=== PATIENT | female | born 1990 | race Caucasian/White ===

== ENCOUNTER 2024-12-11 08:55 | Outpatient (POV) | payer OTHER, SELFPAY ==
--- OUTSIDE RECORDS SUMMARY | 2024-12-11 09:02 | XMS_ITS | Data Portability ---
Author Organization [facility] [employer] [employer] ADMIN Address [address] [place] [address] Assessment Encounter Date Assessment Date Assessment LastModified by Organization Details LastModified Time 07/27/2023 07/27/2023 Diagnosis acute bacterial sinusitis. Will treat as below. No signs of preseptal or orbital cellulitis, meningismus, or neurologic changes concerning for intracranial process. Instructed family to monitor patient closely and call office for any of these symptoms. Supportive care reviewed: raising HOB, humidifier use, saline nasal spray, rest, encourage PO fluids and monitor hydration status, infection control measures. Recommended acetaminophen/i buprofen PRN pain, fever; reviewed appropriate doses. Follow-up with worsening symptoms or concerns [email or web address] Not available 07/27/2023 16:22:21 06/12/2024 06/12/2024 In summary this is a 34-year-old female who presented to the clinic complaining of sore throat that began last night and has worsened. Please see HPI for further details. Rapid strep performed and was positive. Results discussed with the patient. Prescription for azithromycin sent to local pharmacy. Patient advised to increase fluid intake, take all antibiotics and complete prescription as prescribed, take Tylenol/ibuprof en as needed, discard toothbrush in 48 hours, and follow up with their primary care provider if symptoms persist or worsen. [email or web address] Not available 06/12/2024 13:10:57 Plan of Treatment Reminders Order Date Submit Date Provider Last Modified By Organization Details Last Modified Time Details Appointments None record ed. Lab rapid strep group A, throat 2023 024 guillermo garcia [facility], [address], [place], [address], Ph [phone] 4 13:09:24 urinal ysis, dipsti ck 2023 024 [email or web address] [facility], [address], [address], [place], [address], 4 10:13:06 cultur e, urine 2023 024 [facility], [address], [facility] [[email or web address] [address], [place], [address], 4 06:20:13 influe nza virus A + B + SARS-C oV-2 (COVID 19) Ag panel, rapid IA, upper respir atory specim en 2022 023 [place] [facility], [address], [address], [place], [address], 3 16:13:38 rapid strep group A, throat 2022 023 [facility], [address], [address], [place], [address], 3 10:21:21 influe nza virus A + B + SARS-C oV-2 (COVID 19) Ag panel, rapid IA, upper respir atory specim en 2022 023 [email or web address] [facility], [address], [address], [place], [address], 3 10:28:56 Referral None record ed. Procedures None record ed. Surgeries None record ed. Imaging None record ed. Medication Orders azithr omycin 500 mg tablet 2023 024 [facility], [address] [facility], [place], [address], 4 13:09:30 Macrob id 100 mg capsul e 2023 024 [facility], [address] [place], [address], 4 10:13:33 amoxic illin 875 mg-pot assium clavul anate 125 mg tablet 2022 023 [facility], [address] [place], [address], 3 16:21:39 benzon atate 200 mg capsul e 2022 023 [facility], [address] [place], [address], 3 16:22:20 Tamifl u 75 mg capsul e 2022 023 [facility], [address] [place], [address], 3 10:36:42 ondans etron 4 mg disint egrati ng tablet 2022 023 [facility], [address] [place], [address], 3 10:30:50 predni sone 10 mg tablet s in a dose pack 2022 023 [facility], [address] [place], [address], 3 10:30:48 Patient TargetsNo targets recorded. Patient InstructionsNo instructions recorded. Reason for Referral None Reported. Results Created Date Observation Date Name Description Value Unit Range Abnormal Flag Note LastModifiedBy Organization Detail LastModifiedTime 07/03/20 23 07/03/2023 influ aysha virus A + B + SARS- CoV-2 (COVI D19) Ag panel , rapid IA, upper respi rator y speci men FLU A negati ve Not Available [facility] [place] [address] [address], [place], [address], 07/03/2023 10:19:00 07/03/20 23 07/03/2023 influ aysha virus A + B + SARS- CoV-2 (COVI D19) Ag panel , rapid IA, upper respi rator y speci men FLU B positi ve Not Available [facility] [address], [place], [address], 07/03/2023 10:19:00 07/03/20 23 07/03/2023 influ aysha virus A + B + SARS- CoV-2 (COVI D19) Ag panel , rapid IA, upper respi rator y speci men SARS COV + SARS OV 2 negati ve Not Available [facility] [address], [place], [address], 07/03/2023 10:19:00 07/03/20 23 07/03/2023 rapid strep group A, throa t Strep negati ve Not Available [facility] [address], [place], [address], 07/03/2023 10:03:40 07/27/20 23 07/27/2023 influ aysha virus A + B + SARS- CoV-2 (COVI D19) Ag panel , rapid IA, upper respi rator y speci men FLU A negati ve Not Available [facility] [address], [place], [address], 07/27/2023 15:59:10 07/27/20 23 07/27/2023 influ aysha virus A + B + SARS- CoV-2 (COVI D19) Ag panel , rapid IA, upper respi rator y speci men FLU B negati ve Not Available [facility] [address], [place], [address], 07/27/2023 15:59:10 07/27/20 23 07/27/2023 influ aysha virus A + B + SARS- CoV-2 (COVI D19) Ag panel , rapid IA, upper respi rator y speci men SARS COV + SARS OV 2 negati ve Not Available [facility] [address] [facility] [address], [place], [address], 07/27/2023 15:59:10 11/21/19 24 11/23/2023 URINE CULTU RE, ROUTI NE urine culture, routine FINAL REPORT Not Available [facility] ([facility]) [address], [place], [address], 11/23/2023 06:20:13 11/21/19 24 11/23/2023 URINE CULTU RE, ROUTI NE result 1 COMMEN T Mixed uroge nital alberto 10,00 0-25, 000 colon y formi ng units per mL Not Available [facility] ([facility]) [address], [place], [address], 11/23/2023 06:20:13 11/21/19 24 11/21/2023 urina lysis , dipst ick Leukocytes (reference range) negati ve Not Available [facility] [address] [address], [place], [address], 11/21/2023 09:58:40 11/21/19 24 11/21/2023 urina lysis , dipst ick Nitrite (reference range:) negati ve Not Available [facility] [address] [address], [place], [address], 11/21/2023 09:58:40 11/21/19 24 11/21/2023 urina lysis , dipst ick Urobilinogen (reference range) 4 Not Available [facility] [address] [address], [place], [address], 11/21/2023 09:58:40 11/21/19 24 11/21/2023 urina lysis , dipst ick Protein (reference range) negati ve Not Available [facility] [address] [address], [place], [address], 11/21/2023 09:58:40 11/21/19 24 11/21/2023 urina lysis , dipst ick pH (reference range 5-8.5) 6.0 Not Available [facility] [address], [place], [address], 11/21/2023 09:58:40 11/21/19 24 11/21/2023 urina lysis , dipst ick Blood (reference range:) negati ve Not Available [facility] [address] [facility] [address] [facility], [place], [address], 11/21/2023 09:58:40 11/21/19 24 11/21/2023 urina lysis , dipst ick Specific [place] (reference range) 1.025 Not Available [facility] [address] [address], [place], [address], 11/21/2023 09:58:40 11/21/19 24 11/21/2023 urina lysis , dipst ick Ketone (reference range) negati ve Not Available [facility] [address] [facility] [address], [place], [address], 11/21/2023 09:58:40 11/21/19 24 11/21/2023 urina lysis , dipst ick Bilirubin (reference range) negati ve Not Available [facility] [address] [address], [place], [address], 11/21/2023 09:58:40 11/21/19 24 11/21/2023 urina lysis , dipst ick Glucose (reference range) negati ve Not Available [facility] [address] [facility] [address], [place], [address], 11/21/2023 09:58:40 11/21/19 24 11/21/2023 urina lysis , dipst ick Color (reference range: yellow-brown ) Pale Yellow Not Available [facility] [address], [place], [address], 11/21/2023 09:58:40 06/12/20 24 06/12/2024 rapid strep group A, throa t Strep positi ve Not Available [facility] [address], [place], [address], Ph [phone] 06/12/2024 12:51:24 Result Notes None recorded. Problems Name Problem SNOMED Code Status Onset Date Resolution Date Notes Provider Name and Address Organization Details Recorded Time Fever 246829263 Active 2022 NORBERTOKRISTIN ROGERSSMAN null, [place] - [facility] - [place] & [place] 3 10:03:20 Generalized aches and pains 80344675 Active 2022 MAVERICK MURRAYS null, [place] - [facility] [place] & [place] 3 15:59:07 Problem Notes None recorded. Procedures Surgical History Date Name Laterality Status Provider Name and Address Organization Details Recorded Time Caesarean Section completed NORBERTOKRISTIN ROGERSSMAN [place] - [facility] [place] & [place] 07/03/2023 09:56:06 cholecystectomy completed NORBERTO SALSMAN [place] - [facility] [place] & [place] 07/03/2023 09:56:13 sinusotomy, multiple completed NORBERTOKRISTIN ROGERSSMAN [place] [facility] [place] & [place] 07/03/2023 09:56:22 tonsilectomy/adenoi ds completed NORBERTO SALSMAN [place] - [facility] [place] & [place] 07/03/2023 09:56:58 Imaging Results None recorded. Procedure Notes None recorded. Medical Equipment None Reported. Allergies Allergen ID Allergen Name Allergen Category Reaction Reaction Severity Criticality Documentation Date Start Date Code Code System Note Provider Name and Address Organization Details Recorded Time 442268 Keflex medicatio n ringing in ears mild low 07/03/2023 7 RxNorm NORBERTO SUESMAN null, [place] - [facility] - [place] & [place] 3 09:54:34 365622 Substance with sulfonami de structure and antibacte rial mechanism of action (substanc e) medicatio n other mild low 07/03/2023 72835 8003 SNOMED NORBERTO ALCOCER [facility], [place] - [facility] - [place] & [place] 3 09:54:48 Medications Name Sig Start Date Stop Date Status Note LastModified by Organization Details LastModified Time cyclobenzap rine 10 mg tablet TAKE 1 TABLET BY MOUTH EVERY DAY AT BEDTIME active Not Available Not Available No t Available prednisone 10 mg tablet PLEASE SEE ATTACHED FOR DETAILED DIRECTION S active Not Available Not Available No t Available azithromyci n 250 mg tablet TAKE 2 TABLETS BY MOUTH TODAY, THEN TAKE 1 TABLET DAILY FOR 4 DAYS active Not Available Not Available No t Available ibuprofen 800 mg tablet TAKE 1 TABLET BY MOUTH THREE TIMES DAILY NEEDED WITH FOOD OR MILK active Not Available Not Available No t Available benzonatate 200 mg capsule Take 1 capsule 3 times a day by oral route as needed for 7 days. active Not Available Not Available No t Available sumatriptan 100 mg tablet TAKE 1 TABLET AT THE ONSET OF A MIGRAINE, MAY REPEAT EVERY 2 HOURS NEEDED MAX 2 PER DAY active Not Available Not Available No t Available hydrocodone 5 mg-acetamin ophen 325 mg tablet TAKE 1 TABLET BY MOUTH EVERY 8 HOURS NEEDED FOR SEVERE PAIN active Not Available Not Available No t Available tretinoin 0.025 % topical cream active Not Available Not Available Not Available rizatriptan 10 mg tablet TAKE 1 TABLET BY MOUTH 1 (ONE) TIME NEEDED FOR MIGRAINE. MAY REPEAT IN 2 HOURS IF NEEDED active Not Available Not Available No t Available metronidazo le 500 mg tablet TAKE 1 TABLET BY MOUTH THREE TIMES A DAY FOR 10 DAYS active Not Available Not Available No t Available doxycycline monohydrate 100 mg tablet TAKE 1 TABLET BY MOUTH TWICE DAILY FOR 5 DAYS active Not Available Not Available No t Available vancomycin 125 mg capsule TAKE 1 CAPSULE BY MOUTH 4 TIMES DAILY FOR 14 DAYS active Not Available Not Available No t Available prednisone 10 mg tablets in a dose pack TAKE BY MOUTH DIRECTED ON INSIDE OF PACKAGE active Not Available Not Available No t Available methotrexat e sodium 2.5 mg tablet TAKE 6 TABLETS BY MOUTH EVERY WEEK active Not Available Not Available No t Available tamsulosin 0.4 mg capsule TAKE 1 CAPSULE BY MOUTH EVERY DAY 07/03 completed Not Available Not Available Not Available trazodone 100 mg tablet TAKE 1 TABLET BY MOUTH EVERY DAY AT NIGHT active Not Available Not Available No t Available dicyclomine 20 mg tablet active Not Available Not Available Not Available dexamethaso ne 1 mg tablet TAKE 1 TABLET BY MOUTH 1 TIME FOR 1 DOSE.TAKE AT 11 PM NIGHT BEFORE LAB DRAW AT 8 AM. active Not Available Not Available No t Available levothyroxi ne 50 mcg tablet TAKE 1 TABLET BY MOUTH DAILY. PATIENT HAS LABS TO COMPLETE BEFORE ANY FURTHER REFILLS active Not Available Not Available No t Available hydrocodone 7.5 mg-acetamin ophen 325 mg tablet TAKE 1 TABLET BY MOUTH EVERY 6 HOURS NEEDED active Not Available Not Available No t Available oseltamivir 75 mg capsule TAKE 1 CAPSULE BY MOUTH TWICE DAILY FOR 5 DAYS active Not Available Not Available No t Available promethazin e 25 mg tablet active Not Available Not Available Not Available folic acid 1 mg tablet TAKE 1 TABLET BY MOUTH EVERY DAY active Not Available Not Available No t Available mupirocin 2 % topical ointment APPLY SPARINGLY TO BOIL AREAS THREE TIMES DAILY FOR 5 DAYS active Not Available Not Available No t Available ergocalcife rol (vitamin D2) 1,250 mcg (50,000 unit) capsule active Not Available Not Available Not Available methylpredn isolone 4 mg tablets in a dose pack TAKE 6 TABLETS ON DAY 1 DIRECTED ON PACKAGE AND DECREASE BY 1 TAB EACH DAY FOR A TOTAL OF 6 DAYS active Not Available Not Available No t Available ondansetron 4 mg disintegrat ing tablet Place 1 tablet every 4-6 hours by transling ual route as needed. active Not Available Not Available No t Available colestipol 1 gram tablet TAKE 1 TABLET BY MOUTH TWICE DAILY AFTER A MEAL TAKE AT LEAST 1 HOUR AFTER OR 4 HOURS BEFORE OTHER MEDICATIO NS active Not Available Not Available No t Available naproxen 500 mg tablet TAKE 1 TABLET BY MOUTH TWICE DAILY WITH MEALS active Not Available Not Available No t Available amoxicillin 875 mg-potassiu m clavulanate 125 mg tablet Take 1 tablet every 12 hours by oral route for 10 days. active Not Available Not Available No t Available etonogestre l 0.12 mg-ethinyl estradiol 0.015 mg/24 hr vaginal ring PLEASE SEE ATTACHED FOR DETAILED DIRECTION S 07/03 completed Not Available Not Available Not Available azithromyci n 500 mg tablet TAKE 1 TABLET BY MOUTH ONCE DAILY FOR 5 DAYS active Not Available Not Available No t Available escitalopra m 20 mg tablet TAKE 1 TABLET BY MOUTH EVERY DAY active Not Available Not Available No t Available metaxalone 800 mg tablet active Not Available Not Available Not Available nitrofurant oin monohydrate /macrocryst als 100 mg capsule TAKE 1 CAPSULE BY MOUTH EVERY 12 HOURS FOR 10 DAYS active Not Available Not Available No t Available clobetasol 0.05 % topical spray active Not Available Not Available Not Available cholecalcif renee (vitamin D3) 1,250 mcg (50,000 unit) capsule TAKE 1 CAPSULE BY MOUTH ONCE A WEEK active Not Available Not Available No t Available sodium,pota ssium,mag sulfates 17.5 gram-3.13 gram-1.6 gram oral soln AT 5 PM ON THE DAY BEFORE COLONOSCO PY MIX AND DRINK THE FIRST DOSE. MIX AND DRINK THE SECOND DOSE 6 HOURS BEFORE YOU LEAVE HOME ON THE DAY OF COLONOSOC PY active Not Available Not Available No t Available Humira(CF) Pen 40 mg/0.4 mL subcutaneou s kit active Not Available Not Available Not Available Ajovy 225 mg/1.5 mL subcutaneou s auto-inject or INJECT 1.5 ML EVERY MONTH BY SUBCUTANE OUS ROUTE FOR 30 DAYS. active Not Available Not Available No t Available Qulipta 60 mg tablet TAKE 1 TABLET BY MOUTH EVERY DAY active Not Available Not Available No t Available Rinvoq 45 mg tablet,exte nded release active Not Available Not Available Not Available Vitals Date Recorded Body weight Body temperature Oxygen saturation Oxygen saturation in Arterial blood by Pulse oximetry Heart rate Systolic blood pressure Diastolic blood pressure Provider Name and Address Organization Details Last Updated DateTime 3 75130.2 9 g 97.7 [degF] 99 % 99 % 113 /min 132 mm[Hg] 71 mm[Hg] NORBERTO ROGERSCORRIE [facility] & [place] 3 09:59:01 Date Recorded Body weight Body temperature Heart rate Systolic blood pressure Diastolic blood pressure Provider Name and Address Organization Details Last Updated DateTime 07/27/2023 76558.4 g 98.1 [degF] 144 /min 129 mm[Hg] 82 mm[Hg] MAVERICK RODRIGUEZMONS [facility] & [place] 3 15:58:31 Date Recorded Body weight Body mass index (BMI) Body height Body temperature Oxygen saturation Oxygen saturation in Arterial blood by Pulse oximetry Systolic blood pressure Diastolic blood pressure Provider Name and Address Organization Details Last Updated DateTime 4 71305.1 5 g 31.5 kg/m2 162.56 cm 97.9 [degF] 98 % 98 % 116 mm[Hg] 75 mm[Hg] Chanel Bush [facility] & [place] 4 09:58:29 Date Recorded Body height Body mass index (BMI) Body weight Body temperature Oxygen saturation Oxygen saturation in Arterial blood by Pulse oximetry Heart rate Systolic blood pressure Diastolic blood pressure Provider Name and Address Organization Details Last Updated DateTime 4 162.56 cm 31.4 kg/m2 81055.4 g 98.1 [degF] 99 % 99 % 112 /min 103 mm[Hg] 66 mm[Hg] Bry Stanton [facility] & [place] 4 12:51:17 Social History None recorded. Functional Status None recorded. Mental Status None recorded. Family History Relationship Description Onset Age of this Age Resolved Age Notes LastModified by Organization Details LastModified Time Father No current problems or disability [email or web address] Not available 07/03 09:55:46 Mother No current problems or disability asalsman Not available 07/03 09:55:46 Medical History No medical history recorded. Gynecological History Statement/Question Response Current Control Method BCPs LMP Approximate Obstetrics History GPAL:G 0 P 0 0 0 0 Immunizations Vaccine Type Date Status Note Provider Nam e and Address Organization Details Recorded Time Influenza, MDCK, quadrivalent, PF 06/13/2019 completed NORBERTO madison [facility] & [place] 07/03/2023 09:54:17 COVID-19, mRNA, LNP-S, PF, 100 mcg/0.5mL dose or 50 mcg/0.25mL dose 09/04/2020 completed NORBERTO madison [facility] & [place] 07/03/2023 09:54:17 COVID-19, mRNA, LNP-S, PF, 100 mcg/0.5mL dose or 50 mcg/0.25mL dose 10/02/2020 completed NORBERTO madison [facility] & [place] 07/03/2023 09:54:18 COVID-19, mRNA, LNP-S, PF, 100 mcg/0.5mL dose or 50 mcg/0.25mL dose 04/22/2021 completed NORBERTOKRISTIN ROGERSSMAN null, [place] - [facility] [place] & [place] 07/03/2023 09:54:18 TST-PPD intradermal 11/26/2014 completed NORBERTO SALSMAN [place], [place] [facility] [place] 07/03/2023 09:54:18 Influenza, split virus, quadrivalent, PF 04/22/2021 completed NORBERTO SALSMAN [place], [place] [facility] [place] [facility] [place] 07/03/2023 09:54:18 Past Encounters Encounter ID Performer Location Encounter Start Date Encounter Closed Date Diagnosis/Indication Diagnosis SNOMED-CT Code Diagnosis ICD10 Code Diagnosis Note [id number] Shay Albrecht MD [facility] [address] [facility] [place] [address] 07/03/2023 09:41:50 07/03/2023 10:26:14 Fever 340866085 R50.9 Influenza caused by Influenza B virus 02985950 J10.1 Rest, plenty of fluids, OTC symptomati c treatment. Return for failure several days or sooner if worsening. Outside window of ideal timing for Tamiflu but will give trial. Zofran for nausea. Will also add steroids [id number] Cassandra Albrecht APRN [facility] [address] [facility] [place] [address] 07/27/2023 15:44:35 07/27/2023 16:16:02 Generalized aches and pains 31983025 R52 Acute bact erial sinusitis 22957181 J01.90 patient states that she can take augmentin with no side effects Cough 21955495 R05.9 [id number] Shay Albrecht MD [facility] [address] [facility] [place] [address] 11/21/2023 09:48:31 11/21/2023 10:08:42 Acute urinary tract infection 955642824 N39.0 Will treat based on symptoms. Culture. Return for failure to improve over next several days, sooner if worsening. [id number] Cameron Uribe PA-C [place] [facility] [address] [place] [address] 06/12/2024 12:43:36 06/12/2024 13:12:36 Acute streptococcal pharyngitis 2519561795 J02.0 Health Concerns Section Related Observation LastModified by Organization Detai ls LastModified Time None Recorded Concern Status LastModified by Organization Details LastModified Time None Recorded Advance Directives Directive None Recorded Payers Encounter Date Sequence Insurance Name Policy Number Policy Gregg Covered Member ID Gregg Member ID Guarantor Name 07/03/2023 1 [place] [employer] [id number] Blanca Colindres [id number] 241 Blanca Coilndres 07/27/2023 1 [place] [id number] Blanca Colindres [id number] Blanca Colindres 11/21/2023 1 [place] [id number] Blanca Colindres [id number] 241 Blanca Colindres 06/12/2024 1 [place] [id number] Blnaca Colindres [id number] 241 Blanca Colindres Notes Date Note Type Note Provider Name and Address Organization Details Recorded Time 07/03/2023 text/html CoughReported bypatient.Quality:pro ductive Severity:moderate Duration:constant Onset/Timing:gradual Associated Symptoms:no vomiting;fever;chills ;nausea;nasal discharge;muscle pain;tiredness Shay Albrecht MD [address] , [place], [address], [facility] & [place] 07/03/2023 10:36:44 07/27/2023 text/html Upper Respirator y SymptomsReported bypatient.Location:he ad; chest; nasal; face Quality:congested;dry cough;nasal discharge Severity:no pain Duration:symptoms began over 1 week ago Onset/Timing:sudden Context:no sick contacts; no foreign travel; non-smoker Alleviating Factors:decongestant; with no relief Associated Symptoms:no chest pain; no sputum production; no shortness of breath; no wheezing; no cyanosis; no change in number of pillows needed to sleep at night; no sweats; no fever; no morning cough; no vomiting; no rash; no nausea; no chills; no conjunctivitis;fatigu e;sore throat;diarrhea;heada omar; sinus pressure and pain Cassandra Albrecht APRN [address] , [place], [address], [facility] & [place] 07/27/2023 16:22:50 11/21/2023 text/html Dysuria, urinary frequency this morning. Feels like prior UTI's but has not had one in years. Has had some left sided/flank pain for about a week and a half. Unsure if related or if may be more an issue with her Crohn's disease. Shay Albrecht MD [address], [place], [address] & [place] 11/21/2023 10:14:45 06/12/2024 text/html 34-year-old dionne evangelista presents to the clinic complaining of sore throat that began last night and has worsened. She reports that her child was diagnosed with strep pharyngitis by their concrete floater this morning. Patient denies fever, chills, headache, body aches, cough, congestion, or any other symptoms. Cameron Uribe PA-C [address], [place], [address], [facility] & [place] 06/12/2024 13:11:26 OBGyn Episode No OBEpisode recorded.
--- NOTE | 2024-12-11 09:40 | EXP.PAIN.OV ---
HPI Data of Consult Patient: new to practice Consult date: 12/11/24 Requesting Physician: Sara Aguilar APRN Primary Care Provider: Teodoro Huynh Consult Narrative Reason for consult: Neck pain, left arm numbness tingling History of present illness: Ms. Colindres is a 34 year old female who presents today as a new patient. She is a referral from [facility] out of [place] by Dr. Huynh. Today she rates her pain a 5 out of 10. She states that she has been having neck pain that is a sharp sensation that does radiate down primarily into her left shoulder and into her hand with numbness and tingling. Patient does state that she did not have any initial injury or trauma that really started this. She states that she did have an episode where she was sliding down a slide with her child and felt like she could have pulled something and also states that in July she did have a fall that may have aggravated the symptoms. Patient does state that the pain is fairly constant and it is interfering with her ability to perform activities of daily living such as cooking and cleaning. Patient states she even has difficulty picking up her child due to the pain. She denies any prior injections or surgery history. Patient has tried Tylenol, Advil along with being prescribed Skelaxin tramadol and Flexeril. Patient states the Flexeril does seem to help a little. She has also tried heat and ice and topicals with minimal improvement. She states that she did do x-ray imaging however when her doctor did trying to get the advanced imaging ordered it was denied by insurance for lack of physical therapy. Patient does have a history of RA and has been on methotrexate in the past and is currently on Skyrizi. Her Isaiah has been reviewed and is appropriate. CC: Sara Aguilar APRN [facility] Disclaimer: The information contained in this section may have been updated after the patient was seen, as this information can be updated by other users. Medical History (Updated 12/11/24 @ 10:07 by Sara Aguilar APRN) Tristan's disease Hypothyroidism PCOS (polycystic ovarian syndrome) Psoriatic arthritis Crohn disease Family History (Updated 12/11/24 @ 09:45 by Luz Marina Peter RN) Other Unknown family medical history Social History Smoking Status: Unknown if ever smoked alcohol intake: never current occupational status: other Travel in the last 8 weeks?: None Review of Systems Review of Systems Review of systems:: pertinent systems reviewed and negative unless documented below Review of systems (narrative): Review of Systems: General: No recent weight changes, no fever, no sleep disturbances Respiratory: No cough, no shortness of air, no recurring pulmonary infections Cardiovascular/peripheral vascular: No chest pain, no palpitations, no edema, no shortness of breath Gastrointestinal: No new onset incontinence, normal bowel movements reported Genitourinary: No new onset incontinence Musculoskeletal: Neck pain, left shoulder/arm/hand numbness tingling Psychiatric: [Normal mood/affect] Neurological: [Denies weakness in extremities], [denies balance issues] Meds Home Medications and Allergies Home Medications ?Medication ?Instructions ?Recorded ?Confirmed ?Type atogepant 60 mg tablet (Qulipta) 60 mg PO DIRECTED MIGRAINES 12/11/24 12/11/24 History cyanocobalamin (vitamin B-12) 1,000 mcg IM MONTHLY SUPPLIMENT 12/11/24 12/11/24 History 1,000 mcg/mL injection solution cyclobenzaprine 10 mg tablet 10 mg PO HS 12/11/24 12/11/24 History New Prescriptions to Start Prescriptions: Allergies Allergy/AdvReac Type Severity Reaction Status Date / Time Sulfa (Sulfonamide Allergy Difficulty Verified 12/11/24 09:56 Antibiotics) Breathing Objective Narrative: Physical Exam: General: Alert and oriented x3, no acute distress, pleasant and cooperative Lungs: Respirations even and unlabored, symmetrical chest expansion Eyes: PERRL Musculoskeletal: Flexion and extension of cervical [spine] somewhat guarded secondary to pain, positive Spurling's test, point tenderness along bilateral rhomboid and trapezius muscles Neurological: Speech clear, no gross sensory deficit Assessment and Plan *Assessment and plan (1) Neck pain: Status: Acute Category: Medical Code(s): M54.2 - Cervicalgia (2) Cervical radiculopathy: Status: Acute Category: Medical Code(s): M54.12 - Radiculopathy, cervical region (3) Myofascial pain: Status: Acute Category: Medical Code(s): M79.18 - Myalgia, other site Plan Patient is experiencing worsening pain in their neck with radiating tingling and burning sensations into her left upper extremity. Patient does state that she has numbness and tingling into her index finger and the middle finger. Patient did have limited range of motion of her cervical spine with a positive Spurling's test. She did also have point tenderness along her bilateral trapezius and rhomboid muscles. I did discuss with the patient that I do believe they would benefit from a cervical epidural steroid injection. Risk and benefits were discussed with patient and they would like to proceed forward with this plan of care. Patient has tried and failed conservative therapy including oral medications, heat and ice, topicals, at home stretching exercise for longer than 12 weeks that was physician guided. Patient was sent to physical therapy and went for 3 different visits however she could not tolerate the continued PT and that she was actually released from physical therapy due to their concern but they did not want to make anything worse with no advanced imaging. I will proceed forward with ordering a MRI without contrast of her cervical spine. I will also order the patient a compounded cream. Patient will be scheduled for a GRICELDA C6-C7 under fluoroscopy. Patient denies any blood thinners. Patient has been instructed to contact the clinic with any concerns before the next appointment. Dr. Muñoz has reviewed this note and agrees with this plan of care. This note was dictated using voice recognition software and make contain errors or omissions. All injections are used with Lidocaine, Bupivacaine and dexamethasone. Occasionally urine drug screen is needed to verify patient's compliance with our office pain contract. This is ordered based off specific treatments related to chronic pain with the potential to abuse certain medications.
[2024-12-11 09:43] VITALS: BP 121/82; PULSE 130; RESP 18; O2SAT 100; BMI 26.6
== END 2024-12-11 23:59 | disposition home or self-care (01) ==
LOC: SC.PAIN 09:01
PROVIDERS: PCP Family Medicine; Visit Provider Nurse Practitioner Family
DX: M54.2 Cervicalgia (principal); M54.12 Radiculopathy, cervical region; M79.18 Myalgia, other site; Z73.89 Other problems related to life management difficulty
CPT/HCPCS: 99202; G0463

== ENCOUNTER 2025-01-27 13:51 | Day surgery (SDC) | payer OTHER, SELFPAY ==
[2025-01-27 14:01] VITALS: BP 123/79; PULSE 117; RESP 18; TEMP 37.1; O2SAT 98; BMI 26.6
[2025-01-27] MEDS: IOPAMIDOL-200 (41%);10ML VIAL 10 ML IV (14:18)
[2025-01-27 14:24] VITALS: BP 114/75; PULSE 98; RESP 18; O2SAT 98
[2025-01-27] MEDS: DEXAMETHASONE 10MG/ML 1ML VIAL 10 MG (14:24)
[2025-01-27 14:25] VITALS: BP 114/75; PULSE 98; RESP 18; O2SAT 98
--- NOTE | 2025-01-27 14:41 | P.PCN_ITS ---
Procedure Date: 01/27/25 Time: 14:00 Anesthesiologist:: Octavio Kapadia CRNA Complications:: None Pre-procedure Diagnosis:: Degenerative disc cervical spine multilevels. Cervical radiculopathy. Cervical disc bulge C5-6, C6-7 Post-procedure Diagnosis:: Same Indications for Procedure:: Patient is a very pleasant 34-year-old female who comes our clinic today for cervical epidural steroid injection. Patient describes posterior cervical neck pain as well as left shoulder and arm radicular symptoms to the hand. She rates her pain 6/10. Procedure Details:: Procedure:Cervical epidural steroid injection Informed consent was obtained and the risks and benefits of the procedure were explained to the patient. The patient was taken to the procedure room and noninvasive monitors placed, including noninvasive blood pressure cuff and pulse oximeter. The neck was prepped using Chloraprep as a cleansing solution. The C6- C7 interspace was viewed using fluroscopy. The skin and subcutaneous tissues were anesthetized using lidocaine 1.5% and a 25-gauge needle. After this an 18- gauge Touhy epidural needle was placed into the C6-C7 interspace under fluroscopy guidance and advanced using loss of resistance to air until the epidural space was encountered. After confirmation of needle placement in the epidural space using contrast dye, a solution containing normal saline, 2 mL and Depo-Medrol 80 mg was incrementally injected into the cervical epidural space.~ The patient tolerated the procedure well with no complications. The patient was observed in the Pain Clinic and then discharged home neurologically intact. Plan and Disposition:: Patient was discharged without incident.
[2025-01-27 14:42] VITALS: BP 111/72; PULSE 89; RESP 18; O2SAT 100
--- NOTE | 2025-01-27 14:47 | PC.NURSE ---
1430: PT COMPLAINS OF NAUSEA. APPEARS PALE. BP = 77/45, HR = 100, RR = 16, O2 SAT 100%, PT PLACED IN [place] POSITION ON TABLE. PDUFF PRESENT. 1431: BP = 85/53, HR = 106, RR = 16, O2 SAT = 99% 1433: BP = 90/58, HR = 99, RR = 16, O2 SAT = 99% 1436: BP = 111/69, HR = 100, RR = 16, O2 SAT = 100%. PT'S NAUSEA AND COLOR HAVE IMPROVED. PT ASSISTED INTO WHEELCHAIR AND IS STABLE TO PROCEED TOWARD HER ROOM W/ NURSING STAFF VIA WHEELCHAIR.
== END 2025-01-27 14:42 | disposition home or self-care (01) ==
PROVIDERS: PCP Family Medicine; Visit Provider Nurse Anesthetist, Certified Registered
DX: M50.122 Cervical disc disorder at C5-C6 level with radiculopathy (principal); E28.2 Polycystic ovarian syndrome; Z88.2 Allergy status to sulfonamides
CPT/HCPCS: 62321; J1100; Q9966

== ENCOUNTER 2025-02-25 14:10 | Outpatient (POV) | payer OTHER, SELFPAY ==
--- OUTSIDE RECORDS SUMMARY | 2025-02-25 14:13 | XMS_ITS | Continuity of Care Document ---
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 I personally reviewed the images with Dr. Vazquez and read the radiologist's report. 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 ASSESSMENT: Blanca Munoz is a 34-year-old who presents to the clinic to discuss cervical pain is been present since October 2024. Dr. Vazquez discusses imaging findings with patient with the use of a spinal model. She does have perineural cyst at C5-6 and C6-7 but this does not clearly explain her current symptoms. Patient to have a positive Tinel's at her left wrist. We will have patient complete a bilateral upper extremity EMG for further assessment. We will also have her obtain flexion-extensi on cervical x-rays to assess for spinal instability. Patient may call for results. Patient is to call the office once her lumbar MRI is completed through [facility] and we will review. If all of the above is negative, we may provide a referral to neurology for further workup. In the meantime, patient was offered 300mg gabapentin 3 times daily. Patient was advised to take this medication at nighttime and titrate up to 3 times a day as tolerated. Patient ultimately decided to hold off on this medication for now but will call the office if she changes her mind. PLAN: Bilateral upper extremity EMG AP lateral flexion-extensi on cervical x-rays, patient to call for results Gabapentin 300 mg 3 times daily [email or web address] Not available 02/24/2025 09:17:54 Plan of Treatment Reminders Order Date Submit Date Provider Last Modified By Organization Details Last Modified Time Details Appointments RHEUM RECHECK 2024 03:15P M BAMBI HINSON MD Not available Not available Not available DR ALBRECHT EMG 2024 01:15P M Neuro_Tec h_2 Not available Not available Not available NEUROLOGY RECHECK 2024 03:30P M DEIRDRE ALBRECHT DO Not available Not available Not available RECHECK 2024 01:10P M NEPTALI ABBOTT MD Not available Not available Not available FOLLOW UP DAK 2024 11:20A M JEREMY SHER PA-C Not available Not available Not available Lab None recorded. Referral None recorded. Procedures None recorded. Surgeries None recorded. Imaging None recorded. Medication Orders None recorded. Patient TargetsNo targets recorded. Patient InstructionsNo instructions recorded. Reason for Referral None Reported. Results Created Date Observation Date Name Description Value Unit Range Abnormal Flag Note LastModifiedBy Organization Detail LastModifiedTime 02/12/20 25 02/02/2025 CT, cervi tanya spine , w/o contr ast No observ ation record ed. [email or web address] Not Available 2024 15:17:44 02/12/20 25 01/17/2025 MRI, cervi tanya spine , w/o contr ast No observ ation record ed. [email or web address] Not Available 2024 15:18:15 02/18/20 25 01/17/2025 MRI, cervi tanya spine , w/o contr ast No observ ation record ed. BARCODE Not Available 2024 09:58:59 02/21/20 25 02/20/2025 XR, cervi tanya spine , 4 or 5 view [facility] [address] [place] [address] Herminia thomson Name: FLIP thomson : [birth year] Patien t Orderi ng Provid er: CARLA Thomson EXAM DATE: 2024 EXAM: XR CERVIC AL SPINE AP/LAT /FLEX/ EXT CLINIC AL INFORM ATION: IMAGES PROVID ED: Latera l views of the cervic al spine in flexio n and extens ion. COMPAR KATERINA: None. FINDIN GS: FINDIN GS: Verteb ral body height s are normal . Disc spaces are well-m aintai edith. No abnorm ality of alignm ent is seen. No instab ility is seen on flexio n or extens ion. No radiog raphic eviden ce of injury is noted. IMPRES CAROLINE: Normal radiog raphic series of the cervic al spine. No instab ility. Interp reted By: Gianluca Deluca MD Electr onical ly Signed By: Gianluca Deluca MD on 025 10:31 AM INTERFACE [facility] [address] [place], [phone], 02/20/2025 10:36:30 Result Notes Documentation Provider Name and Address Organization Details Recorded Time Xr, Cervical Spine, 4 Or 5 View : [facility] [address] [place] [id number] Patient Name: BLANCA MUNOZ Patient : 1990 Patient Ordering Provider: CARLA VAZQUEZ EXAM DATE: 02/20/2025 EXAM: XR CERVICAL SPINE AP/LAT/FLEX/EXT CLINICAL INFORMATION: IMAGES PROVIDED: Lateral views of the cervical spine in flexion and extension. COMPARISON: None. FINDINGS: FINDINGS: Vertebral body heights are normal. Disc spaces are well-maintained. No abnormality of alignment is seen. No instability is seen on flexion or extension. No radiographic evidence of injury is noted. IMPRESSION: Normal radiographic series of the cervical spine. No instability. 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 Procedures Surgical History Date Name Laterality Status Provider Name and Address Organization Details Recorded Time 022 section completed Sharla Morris [facility] 04/10/2022 14:05:42 021 Endoscopy Nasal; Diagnostic completed Latisha Phipps [facility] 03/16/2021 10:15:27 021 Endoscopy Nasal; Diagnostic completed NOREEN SINCLAIR MD [address] [place] [address], [phone] 01/28/2021 12:00:10 021 Endoscopy Nasal; Diagnostic completed NEPTALI GUIDRY APRN [address] [place] [address], [phone], [facility] 01/04/2021 16:23:59 020 Echocardiogram completed BHARATI RAY MD [address] [place] [address], [phone], [facility] 06/03/2020 09:16:47 019 Endoscopy Nasal; Diagnostic completed NOREEN SINCLAIR MD [address] [place] [address], [phone], [facility] 05/20/2019 14:05:24 019 Endoscopy Nasal; Biospy, Polypectomy or Debridement completed NOREEN SINCLAIR MD [address] [place] [address], [phone], [facility] 04/18/2019 16:54:34 019 Ears/Nose/Throat Surgery completed Feli Flores [facility] 01/04/2021 16:07:19 Other completed Neli Bailon [facility] 02/12/2017 12:06:37 Remove tonsils and adenoids completed Neli Bailon [facility] 02/12/2017 12:06:43 Other completed Neli Bailon [facility] 02/12/2017 12:06:51 cholecystectomy completed [facility] 08/26/2019 14:18:50 Imaging Results None recorded. Procedure Notes None recorded. Medical Equipment None Reported. Allergies Allergen ID Allergen Name Allergen Category Reaction Reaction Severity Criticality Documentation Date Start Date Code Code System Note Provider Name and Address Organization Details Recorded Time 392359 Substance with sulfonami de structure and antibacte rial mechanism of action (substanc e) medicatio n rash Not available Not available 07/07/20162015 91928 8003 SNOMED React ion: RASH; Comme nt: Creat ed By: Maxi rgCre ated Date: 016 11:02 :10 AM; Not Available [facility] 6 09:19:59 [id number] Flagyl medicatio n vomiting Not available Not available 07/17/2022 6 RxNorm Colleen Estrada [facility] 2 16:01:33 [id number] Keflex medicatio n rash mild low 10/31/2022 7 RxNorm Manisha Bush [facility] 3 14:49:23 Medications Name Sig Start Date Stop Date Status Note LastModified by Organization Details LastModified Time Prescript ion - Prior Authoriza tion Request active Not Available Not Available Not Available cyclobenz aprine 10 mg tablet TAKE 1 TABLET BY MOUTH EVERY DAY AT BEDTIME 03/24 completed Not Available Not Available Not Available amoxicill in 500 mg capsule 01/07 completed Not Available Not Available Not Available medroxypr ogesteron e 10 mg tablet 04/10 completed Not Available Not Available Not Available promethaz ine-DM 6.25 mg-15 mg/5 mL oral syrup 11/15 completed Not Available Not Available Not Available prednison e 10 mg tablet PLEASE SEE ATTACHED FOR DETAILED DIRECTIO NS 03/24 completed Not Available Not Available Not Available clindamyc in HCl 300 mg capsule TAKE 1 CAPSULE BY MOUTH EVERY 8 HOURS 12/26 completed Not Available Not Available Not Available trazodone 50 mg tablet TAKE 1 TABLET BY MOUTH EVERY DAY AT NIGHT 10/31 completed Not Available Not Available Not Available triamcino lone acetonide 0.5 % topical cream APPLY A THIN LAYER TO THE AFFECTED AREA(S) BY TOPICAL ROUTE 2 TIMES PER DAY 2024 active Not Available Not Available Not Avai lable cetirizin e 10 mg tablet TAKE 1 TABLET BY MOUTH EVERY DAY FOR 30 DAYS 03/24 completed Not Available Not Available Not Available azithromy michael 250 mg tablet TAKE 2 TABLETS BY MOUTH TODAY, THEN TAKE 1 TABLET DAILY FOR 4 DAYS 03/24 completed Not Available Not Available Not Available ibuprofen 800 mg tablet TAKE 1 TABLET BY MOUTH THREE TIMES DAILY NEEDED WITH FOOD OR MILK 03/24 completed Not Available Not Available Not Available fluconazo le 150 mg tablet 02/18 completed Not Available Not Available Not Available benzonata te 200 mg capsule TAKE 1 CAPSULE BY MOUTH THREE TIMES DAILY NEEDED FOR 7 DAYS 03/24 completed Not Available Not Available Not Available sumatript an 100 mg tablet TAKE 1 TABLET AT THE ONSET OF A MIGRAINE , MAY REPEAT EVERY 2 HOURS NEEDED MAX 2 PER DAY 03/24 completed Not Available Not Available Not Available hydrocodo ne 5 mg-acetam inophen 325 mg tablet TAKE 1 TABLET BY MOUTH EVERY 8 HOURS NEEDED FOR SEVERE PAIN 03/24 completed Not Available Not Available Not Available tretinoin 0.025 % topical cream APPLY TO THE AFFECTED AREA(S) BY TOPICAL ROUTE ONCE DAILY AT BEDTIME active Not Available Not Available No t Available fluconazo le 200 mg tablet 11/15 completed Not Available Not Available Not Available ondansetr on HCl 4 mg tablet 11/15 completed Not Available Not Available Not Available famotidin e 40 mg tablet Take 1 tablet every day by oral route at bedtime for 30 days. 03/24 completed Not Available Not Available Not Available prednison e 20 mg tablet TAKE 2 TABLETS BY MOUTH ONCE DAILY active Not Available Not Available No t Available rizatript an 10 mg tablet TAKE ONE TABLET BY MOUTH AT ONSET OF MIGRAINE . IF SYMPTOMS PERSIST, A SECOND DOSE MAY BE TAKEN IN 2 HOURS. DO NOT EXCEED 2 DOSES IN A 24 HOUR PERIOD, UNLESS OTHERWIS E INSTRUCT ED BY YOUR PHYSICIA N active Not Available Not Available No t Available triazolam 0.125 mg tablet 05/31 completed Not Available Not Available Not Available sumatript an 5 mg/actuat ion nasal spray PLEASE SEE ATTACHED FOR DETAILED DIRECTIO NS 04/10 completed Not Available Not Available Not Available methylpre dnisolone 4 mg tablet 1 TID x 7 days1 BID x 7 days1 QD x 7 days 2024 active Not Available Not Available Not Avai lable pimecroli mus 1 % topical cream Apply by topical route for 30 days. 03/24 completed Not Available Not Available Not Available permethri n 5 % topical cream 05/31 completed Not Available Not Available Not Available sumatript an 50 mg tablet 02/18 completed Not Available Not Available Not Available promethaz ine 6.25 mg-codein e 10 mg/5 mL syrup 02/18 completed Not Available Not Available Not Available metronida zole 500 mg tablet TAKE 1 TABLET BY MOUTH THREE TIMES A DAY FOR 10 DAYS 10/31 completed Not Available Not Available Not Available nifedipin e ER 30 mg tablet,ex tended release 10/31 completed Not Available Not Available Not Available ciproflox acin 500 mg tablet TAKE 1 TABLET BY MOUTH TWICE A DAY 12/22 completed Not Available Not Available Not Available sulfameth oxazole 800 mg-trimet hoprim 160 mg tablet 03/24 completed Not Available Not Available Not Available omeprazol e 40 mg capsule,d elayed release 05/31 completed Not Available Not Available Not Available doxycycli ne monohydra te 100 mg tablet TAKE 1 TABLET BY MOUTH TWICE DAILY FOR 5 DAYS 03/24 completed Not Available Not Available Not Available tramadol 50 mg tablet TAKE 1 TABLET BY MOUTH EVERY 6 HOURS NEEDED FOR MODERATE PAIN active Not Available Not Available No t Available butalbita l-acetami nophen-ca ffeine 50 mg-325 mg-40 mg tablet PRN for migraine 11/22 /2021 completed Not Available Not Available Not Available vancomyci n 125 mg capsule TAKE 1 CAPSULE BY MOUTH 4 TIMES DAILY FOR 14 DAYS 10/31 completed Not Available Not Available Not Available ketorolac 10 mg tablet TAKE 1 TABLET EVERY 4 HOURS NEEDED FOR PAIN. NO TO EXCEED 4 TABLETS IN 24 HOURS FOR UP TO 5 DAYS 01/04 completed Not Available Not Available Not Available prednison e 10 mg tablets in a dose pack TAKE BY MOUTH DIRECTED ON INSIDE OF PACKAGE 03/24 completed Not Available Not Available Not Available Nitro-Bid 2 % transderm al ointment 02/12 completed Not Available Not Available Not Available oxycodone -acetamin ophen 5 mg-325 mg tablet 02/12 completed Not Available Not Available Not Available terbinafi ne HCl 250 mg tablet Take 1 tablet every day by oral route. 05/31 completed Not Available Not Available Not Available triamcino lone acetonide 0.1 % dental paste 02/18 completed Not Available Not Available Not Available triamcino lone acetonide 0.025 % topical cream APPLY THIN COAT TO AFFECTED AREA TWICE A DAY 01/04 completed Not Available Not Available Not Available methotrex ate sodium 2.5 mg tablet Take 4 tablets twice a week by oral route for 30 days. 2024 active Not Available Not Available Not Avai lable tamsulosi n 0.4 mg capsule TAKE 1 CAPSULE BY MOUTH EVERY DAY 03/24 completed Not Available Not Available Not Available trazodone 100 mg tablet TAKE 1 TABLET BY MOUTH EVERY DAY AT NIGHT active Not Available Not Available No t Available dicyclomi ne 20 mg tablet TAKE 1 TABLET ORAL ROUTE EVERY 8 HOURS NEEDED FOR ABDOMINA L PAIN 03/24 completed Not Available Not Available Not Available dexametha sone 1 mg tablet TAKE 1 TABLET BY MOUTH 1 TIME FOR 1 DOSE.OMI E AT 11 PM NIGHT BEFORE LAB DRAW AT 8 AM. 03/24 completed Not Available Not Available Not Available amitripty line 10 mg tablet Take 1 tablet every day by oral route. 08/26 completed Not Available Not Available Not Available benzonata te 100 mg capsule 02/18 completed Not Available Not Available Not Available rizatript an 10 mg disintegr ating tablet DISSOLVE 1 TABLET AT ONSET OF MIGRAINE MAY REPEAT IN 2HRS IF NEEDED active Not Available Not Available No t Available levothyro xine 50 mcg tablet TAKE 1 TABLET BY MOUTH DAILY. PATIENT HAS LABS TO COMPLETE BEFORE ANY FURTHER REFILLS active Not Available Not Available No t Available hydrocodo ne 7.5 mg-acetam inophen 325 mg tablet TAKE 1 TABLET BY MOUTH EVERY 6 HOURS NEEDED 03/24 completed Not Available Not Available Not Available cephalexi n 500 mg capsule TAKE 1 CAPSULE BY MOUTH EVERY 6 HOURS 12/26 completed Not Available Not Available Not Available pantopraz ole 40 mg tablet,de layed release TAKE 1 TABLET BY MOUTH EVERY DAY 10/31 completed Not Available Not Available Not Available cyanocoba kathy (vit B-12) 1,000 mcg/mL injection solution INJECT 1 ML (CC) INTRAMUS CULARLY ONCE EVERY MONTH DIRECTED active Not Available Not Available No t Available trazodone 150 mg tablet active Not Available Not Available Not Available oseltamiv ir 75 mg capsule TAKE 1 CAPSULE BY MOUTH TWICE DAILY FOR 5 DAYS 03/24 completed Not Available Not Available Not Available ranitidin e 150 mg tablet 08/26 completed Not Available Not Available Not Available buspirone 10 mg tablet Daily 02/12 completed Frequenc y: daily;Me dication Descript ion: buspiron e; Dosage:2 ; Route:or al; refills: 0 Not Available Not Available Not Available butalbita l 50 mg-acetam inophen 325 mg-caffei ne 40 mg-codein e 30 mg cap 02/18 completed Not Available Not Available Not Available prednison e 50 mg tablet 11/15 completed Not Available Not Available Not Available promethaz ine 25 mg tablet TAKE 1 TABLET BY MOUTH EVERY 6 HOURS NEEDED FOR NAUSEA active Not Available Not Available No t Available clobetaso l 0.05 % topical foam APPLY TO THE AFFECTED AREA(S) BY TOPICAL ROUTE 2 TIMES PER DAY IN THE MORNING AND EVENING 02/18 completed Not Available Not Available Not Available docusate sodium 100 mg capsule TAKE 1 CAPSULE BY MOUTH TWICE A DAY 01/04 completed Not Available Not Available Not Available budesonid e 0.5 mg/2 mL suspensio n for nebulizat ion 07/04 completed Not Available Not Available Not Available folic acid 1 mg tablet Take 1 tablet by mouth daily. 2024 active Not Available Not Available Not Avai lable monteluka st 10 mg tablet 11/15 completed Not Available Not Available Not Available ranitidin e 150 mg capsule 11/15 completed Not Available Not Available Not Available mupirocin 2 % topical ointment APPLY SPARINGL Y TO BOIL AREAS THREE TIMES DAILY FOR 5 DAYS 03/24 completed Not Available Not Available Not Available furosemid e 20 mg tablet 10/31 completed Not Available Not Available Not Available BD Tuberculi n Syringe 1 mL 25 gauge x 5/8 USE ONE NEEDLE EVERY 30 DAYS active Not Available Not Available No t Available ibuprofen 600 mg tablet 04/10 completed Not Available Not Available Not Available levofloxa michael 500 mg tablet 11/15 completed Not Available Not Available Not Available letrozole 2.5 mg tablet 04/10 completed Not Available Not Available Not Available methylpre dnisolone 4 mg tablets in a dose pack TAKE 6 TABLETS ON DAY 1 DIRECTED ON PACKAGE AND DECREASE BY 1 TAB EACH DAY FOR A TOTAL OF 6 DAYS 03/24 completed Not Available Not Available Not Available albuterol sulfate HFA 90 mcg/actua tion aerosol inhaler INHALE 1-2 PUFFS EVERY 4-6 HOURS NEEDED 08/26 completed Not Available Not Available Not Available hydroxyzi ne HCl 10 mg tablet TAKE DIRECTED ORALLY NEEDED 30 DAY(S) 10/31 completed Not Available Not Available Not Available brompheni ramine-ps eudoephed rine-DM 2 mg-30 mg-10 mg/5 mL oral syrup 02/12 completed Not Available Not Available Not Available ondansetr on 4 mg disintegr ating tablet TAKE 1 TABLET ORAL ROUTE EVERY 6-8 HOURS NEEDED 03/24 completed Not Available Not Available Not Available cefdinir 300 mg capsule 02/18 completed Not Available Not Available Not Available colestipo l 1 gram tablet TAKE 1 TABLET BY MOUTH TWICE DAILY AFTER A MEAL TAKE AT LEAST 1 HOUR AFTER OR 4 HOURS BEFORE OTHER MEDICATI ONS active Not Available Not Available No t Available doxycycli ne hyclate 100 mg tablet 02/18 completed Not Available Not Available Not Available naproxen 500 mg tablet TAKE 1 TABLET BY MOUTH EVERY 12 HOURS NEEDED active Not Available Not Available No t Available spironola ctone 50 mg tablet on hold 11/22 /2021 completed Not Available Not Available Not Available metoclopr amide 10 mg tablet TAKE 1 TABLET ORALLY THREE TIMES DAILY NEEDED 30 DAY(S) 04/10 completed Not Available Not Available Not Available amoxicill in 875 mg-potass ium clavulana te 125 mg tablet TAKE 1 TABLET BY MOUTH EVERY 12 HOURS FOR 10 DAYS 03/24 completed Not Available Not Available Not Available tobramyci n 0.3 %-dexamet hasone 0.1 % eye drops,gianluca pension INSTILL 1 DROP INTO AFFECTED EYE 4 TIMES DAILY FOR 7 DAYS active Not Available Not Available No t Available clindamyc in 1 % lotion APPLY A THIN LAYER TO THE AFFECTED AREA(S) BY TOPICAL ROUTE 2 TIMES PER DAY TO CHEST AND BACK active Not Available Not Available No t Available etonogest rel 0.12 mg-ethiny l estradiol 0.015 mg/24 hr vaginal ring PLEASE SEE ATTACHED FOR DETAILED DIRECTIO NS 03/24 completed Not Available Not Available Not Available azithromy michael 500 mg tablet TAKE 1 TABLET BY MOUTH ONCE DAILY FOR 5 DAYS active Not Available Not Available No t Available escitalop rocael 20 mg tablet TAKE 1 TABLET BY MOUTH EVERY DAY active Not Available Not Available No t Available Lexapro 10 mg tablet Take 1 tablet every day by oral route. 08/26 completed Not Available Not Available Not Available metaxalon e 800 mg tablet TAKE 1/2 TO 1 (ONE-TARYN F TO ONE) TABLET BY MOUTH EVERY 8 HOURS NEEDED FOR MUSCLE PAIN active Not Available Not Available No t Available Humira 40 mg/0.8 mL subcutane ous syringe kit 10/23 completed Not Available Not Available Not Available cyclobenz aprine 5 mg tablet Take 1 tablet 3 times a day by oral route as needed. 03/24 completed Not Available Not Available Not Available clobetaso l 0.05 % shampoo APPLY A THIN LAYER BY TOPICAL ROUTE ONCE DAILY TO DRY SCALP LEAVE IN PLACE 15 MIN. THEN LATHER AND RINSE. 02/18 completed Not Available Not Available Not Available nitrofura ntoin monohydra te/macroc rystals 100 mg capsule TAKE 1 CAPSULE BY MOUTH EVERY 12 HOURS FOR 10 DAYS 03/24 completed Not Available Not Available Not Available solifenac in 10 mg tablet TAKE 1 TABLET BY MOUTH EVERY DAY 01/04 completed Not Available Not Available Not Available clobetaso l 0.05 % topical spray SPRAY 1 SPRAY TWO TIMES A DAY active Not Available Not Available No t Available Imitrex 02/18 completed Medicati on Descript ion: sumatrip kenney; refills: 0 Not Available Not Available Not Available spironola ctone daily 03/02 completed Not Available Not Available Not Available Depo-Estr adiol active Not Available Not Available Not Available Enbrel SureClick 50 mg/mL (1 mL) subcutane ous pen injector INJECT 1 PEN (50MG) SUBCUTAN EOUSLY EVERY WEEK 10/22 completed PA approved 06/19/19- 06/19/21 Not Available Not Available Not Available clobetaso l-emollie nt 0.05 % topical foam 11/15 completed Not Available Not Available Not Available cholecalc iferol (vitamin D3) 1,250 mcg (50,000 unit) capsule TAKE 1 CAPSULE BY MOUTH ONCE A WEEK 03/24 completed Not Available Not Available Not Available levocetir izine 5 mg tablet TAKE 1 TABLET EVERY DAY BY ORAL ROUTE FOR 30 DAYS. 04/10 completed Not Available Not Available Not Available Cimzia 400 mg/2 mL (200 mg/mL x 2) subcutane ous syringe kit 05/31 completed Not Available Not Available Not Available butalbita l-acetami nophen-ca ffeine 50 mg-300 mg-40 mg capsule TAKE 1 CAPSULE NEEDED ORALLY EVERY 4 HOURS FOR 30 DAYS - SENT FOR PA 04/10 completed Not Available Not Available Not Available sodium,po tassium,m ag sulfates 17.5 gram-3.13 gram-1.6 gram oral soln AT 5 PM ON THE DAY BEFORE COLONOSC OPY MIX AND DRINK THE FIRST DOSE. MIX AND DRINK THE SECOND DOSE 6 HOURS BEFORE YOU LEAVE HOME ON THE DAY OF COLONOSO CPY active Not Available Not Available No t Available Stahist AD 25 mg-60 mg tablet 04/10 completed Not Available Not Available Not Available lidocaine 5 % topical ointment 05/31 completed Not Available Not Available Not Available Carly (28) 3 mg-0.02 mg tablet 08/26 completed Not Available Not Available Not Available Rasuvo (PF) 15 mg/0.3 mL subcutane ous auto-inje ctor Inject 0.3 mL every week by subcutan eous route for 30 days. 05/31 completed Not Available Not Available Not Available Clenpiq 10 mg-3.5 gram-12 gram/160 mL oral solution DIRECTED 07/04 completed Not Available Not Available Not Available Humira(CF ) 40 mg/0.4 mL subcutane ous syringe kit 03/24 completed Not Available Not Available Not Available Humira(CF ) Pen 40 mg/0.4 mL subcutane ous kit Inject 40 mg every 2 weeks by subcutan eous route for 28 days. 12/09 completed pt no longer takes Not Available Not Available Not Available Plenvu 140 gram-9 gram-5.2 gram powder packs DIRECTED 07/04 completed Not Available Not Available Not Available Emgality Pen 120 mg/mL subcutane ous pen injector active Not Available Not Available Not Available Aimovig Autoinjec tor 140 mg/mL subcutane ous auto-inje ctor INJECT 1 ML UNDER THE SKIN INTO THE APPROPRI ATE AREA DIRECTED 1 (ONE) TIME FOR 1 DOSE. 07/04 completed Not Available Not Available Not Available Flucelvax Quad (PF) 60 mcg (15 mcg x 4)/0.5 mL IM syringe TO BE ADMINIST ERED BY PHARMACI ST FOR IMMUNIZA TION 08/26 completed Not Available Not Available Not Available Ubrelvy 100 mg tablet 1 AT THE ONSET OF A MIGRAINE , MAY REPEAT EVERY 2 HOURS NEEDED MAX PER DAY 07/04 completed Not Available Not Available Not Available Nurtec ODT 75 mg disintegr ating tablet 10/31 completed Not Available Not Available Not Available Ajovy 225 mg/1.5 mL subcutane ous auto-inje ctor INJECT 1.5 ML EVERY MONTH BY SUBCUTAN EOUS ROUTE FOR 30 DAYS. 03/24 completed Not Available Not Available Not Available Qulipta 60 mg tablet TAKE 1 TABLET BY MOUTH EVERY DAY active Not Available Not Available No t Available Flowflex COVID-19 Antigen Home Test kit 03/24 completed Not Available Not Available Not Available Rinvoq 30 mg tablet,ex tended release 09/25 completed Not Available Not Available Not Available Rinvoq 45 mg tablet,ex tended release 09/25 completed Not Available Not Available Not Available Skyrizi 60 mg/mL intraveno us solution Inject by intraven ous route. active Not Available Not Available No t Available Zepbound 5 mg/0.5 mL subcutane ous pen injector Inject 0.5 mL every week by subcutan eous route. active Not Available Not Available No t Available Vitals Date Recorded Body height Provider Name an d Address Organization Details Last Updated DateTime 02/20/2025 162.56 [facility] 09:25:14 Social History Question Answer Notes LastModified by Organizat ion Details LastModified Time Tobacco Smoking Status Never Smoker Neli madison, [facility] 02/12/2017 12:06:27 How Much Tobacco Do You Chew? None Information not available 03/04/2020 Sunscreen Use? Yes [email or web address] Informatio n not available 05/13/2024 Tanning Bed Use No [email or web address] Informati on not available 05/13/2024 Are You Or Trying To Become ? No Information not available 05/13/2024 Are You On Control? Yes [email or web address] Information not available 05/13/2024 Are You ? No [email or web address] Information not available 05/13/2024 What Was The Date Of Your Most Recent Tobacco Screening? 09/25/2024 [email or web address] Information not available 09/25/2024 How Much Tobacco Do You Smoke? No Information not available 10/21/2019 How Many Years Have You Smoked Tobacco? 0 Information not available 10/21/2019 Have You Recently Traveled Abroad? No [email or web address] Information not available 10/31/2022 Sex: Unknown Functional Status Question Answer Note LastModified by Organizat ion Details LastModified Time Do you or have you ever used any other forms of tobacco or nicotine? No [email or web address] Information not available 05/13/2024 What is your level of alcohol consumption? None [email or web address] Information not available 02/12/2017 Do you or have you ever used smokeless tobacco? Never used smokeless tobacco [email or web address] Information not available 10/21/2019 Do you or have you ever used e-cigarettes or vape? Never used electronic cigarettes [email or web address] Information not available 10/21/2019 Mental Status None recorded. Family History Relationship Description Onset Age of this Age Resolved Age Notes LastModified by Organization Details LastModified Time Maternal Aunt Family history of breast cancer [email or web address] Not available 02/12 12:05:53 Maternal Aunt Disorder of thyroid gland [email or web address] Not available 02/12 12:06:15 Mother Disorder of thyroid gland Not available 02/12 12:06:15 Mother Arthritis Not availa ble 02/12/2017 12:06:22 Maternal Grandmother Disorder of thyroid gland [email or web address] Not available 02/12 12:06:15 Medical History Condition Response Diabetes N Anxiety Disorder Y Bleeding Disorder N Arthritis Y Emphysema N Acid Reflux (GERD) N Cancer N Migraines Y Depression Y COPD N Asthma N High Cholesterol N Anesthesia Complications N Heart Disease N Rheumatoid Arthritis N Hypertension N Gynecological HistoryNo gynecological history recorded. Obstetrics History GPAL:G 0 P 0 0 0 0 Immunizations Vaccine Type Date Status Note Provider Nam e and Address Organization Details Recorded Time Influenza, split virus, quadrivalent, preservative 0 completed Tawny Patel [facility] 10/21/2019 16:10:23 COVID-19, mRNA, LNP-S, PF, 100 mcg/0.5mL dose or 50 mcg/0.25mL dose 1 completed Zoraida Albrecht [facility] 01/28/2021 11:18:50 COVID-19, mRNA, LNP-S, PF, 100 mcg/0.5mL dose or 50 mcg/0.25mL dose 1 completed Zoraida Albrecht [facility] 01/28/2021 11:18:54 Past Encounters Encounter ID Performer Location Encounter Start Date Encounter Closed Date Diagnosis/Indication Diagnosis SNOMED-CT Code Diagnosis ICD10 Code Diagnosis Note [id number] NEPTALI ABBOTT MD [facility] [address] [facility], [address] [place] [address] 01/28/2025 14:30:22 01/29/2025 09:50:03 Crohn's disease of small intestine 87777679 K50.00 humdion helpedrinv oq did notskyrizi not helping the psoriatic arthritis but does have the crohns well controlled added mtx in last few mos for psoriasis - Maintain current treatment with Skyrizifol low up with dr hinson to see if There is an adjunct therapy that could be added to the Skyrizi such as a higher dose of methotrexa te Versus changing biologic to something that would cover the [facility] Psoriatic arthritis 1563 27824 L40.50 [id number] HSAQ CHAVIRA PA-C [facility] [address] [place] [address] 02/20/2025 09:01:15 02/25/2025 06:42:25 Cervical spondylosis 966328545 M47.812 Health Concerns Section Related Observation LastModified by Organization Detai ls LastModified Time None Recorded Concern Status LastModified by Organization Details LastModified Time None Recorded Payers Encounter Date Sequence Insurance Name Policy Number Policy Gregg Covered Member ID Gregg Member ID Guarantor Name 02/20/2025 1 [employer] [id number] Blanca Munoz [id number] Blanca Munoz Notes Date Note Type Note Provider Name and Address Organization Details Recorded Time 02/20/2025 text/html Blanca Munoz is a 34-year-old who presents to the clinic to discuss cervical pain is been present since October 2024, with MRI cervical through [facility] on 01/17/2025. Patient reports posterior cervical pain with radiation into her bilateral trapezii has been present since October of this year. She denies upper extremity radiation, although her hands do feel weak. Patient is right-handed. She states the left side of neck and her left trapezius is more bothersome than the right side. Her pain worsened on January 22 when her toddler pulled her. She states arm abduction, sitting, and standing worsens her cervical pain. Patient does report an increase in gait instability since October of this year. She also states since October of this year she has developed lateral left thigh numbness that is present with ambulation. She denies lower back pain or lower extremity pain. She is scheduled to undergo an MRI of her lumbar spine this month through [facility]. Patient underwent formal cervical physical therapy but PT decided to stop working with her until she was evaluated by our office. Patient received a steroid injection at C6-7 with [facility] pain management. Patient states this injection did not alleviate her symptoms, even temporarily. Patient was given neuropathic pain cream also has not significantly helped. Patient has been prescribed Percocet 7.5 and states this does alleviate her pain some. Patient has never tried a neuromodulating medication. Patient has never a nerve study performed. Patient is not on any blood thinners. PA and physician visit. SHAQ CHAVIRA PA-C [address] [place], [address], [facility] 02/24/2025 09:17:58 OBGyn Episode No OBEpisode recorded.
--- OUTSIDE RECORDS SUMMARY | 2025-02-25 14:14 | XMS_ITS | Data Portability ---
Author Organization [facility] [place] [facility] MIGUE Carbajal ADMIN Address [address] [facility] [place] [address] Assessment Encounter Date Assessment Date Assessment LastModified [...] doses. Follow-up with worsening symptoms or concerns [email or web address] Not available 07/27/2023 16:22:21 06/12/2024 06/12/2024 In [...] group A, throat 2023 024 guillermo garcia [facility], [address], [place], [address], Ph [phone] 4 13:09:24 urinal ysis, dipsti ck 2023 024 [email or web address] Not available 4 10:13:06 cultur e, urine 2023 024 CASA BLANCA [facility], [address], [address], [place], [address], 4 06:20:13 influe nza virus A + B + SARS-C oV-2 (COVID 19) Ag panel, rapid IA, upper respir atory specim en 2022 023 RENA Not available 3 16:13:38 rapid strep group A, throat 2022 023 Not available 3 10:21:21 influe nza virus A + B + SARS-C oV-2 (COVID 19) Ag panel, rapid IA, upper respir atory specim en 2022 023 [email or web address] Not available 3 10:28:56 Referral None record ed. Procedures None record ed. Surgeries None record ed. Imaging None record ed. Medication Orders azithr omycin 500 mg tablet 2023 024 [facility] [place], [address], 4 13:09:30 Macrob id 100 mg capsul e 2023 024 [facility] [place], [address], 4 10:13:33 amoxic illin 875 mg-pot assium clavul anate 125 mg tablet 2022 023 [facility] [place], [address], 3 16:21:39 benzon atate 200 mg capsul e 2022 023 [facility] [place], [address], 3 16:22:20 Tamifl u 75 mg capsul e 2022 023 [facility] [place], [address], 3 10:36:42 ondans etron 4 mg disint egrati ng tablet 2022 023 [facility] [place], [address], 3 10:30:50 predni sone 10 mg tablet s in a dose pack 2022 023 [facility] [place], [address], 3 10:30:48 Patient TargetsNo targets recorded. Patient InstructionsNo instructions recorded. Reason for Referral None Reported. Results Created Date Observation Date Name Description Value Unit Range Abnormal Flag Note LastModifiedBy Organization Detail LastModifiedTime 07/03/2007/03/2023 influ aysha virus A + B + SARS- CoV-2 (COVI D19) Ag panel , rapid IA, upper respi rator y speci men FLU A negati ve Not Available [facility] [address] [facility] [address], [place], [address], 07/03/2023 10:19:00 07/03/20 23 07/03/2023 influ aysha virus A + B + SARS- CoV-2 (COVI D19) Ag panel , rapid IA, upper respi rator y speci men FLU B positi ve Not Available [facility] [address] [facility] [address], [place], [address], 07/03/2023 10:19:00 07/03/20 23 07/03/2023 influ aysha virus A + B + SARS- CoV-2 (COVI D19) Ag panel , rapid IA, upper respi rator y speci men SARS COV + SARS OV 2 negati ve Not Available [facility] [address], [place], [address], 07/03/2023 10:19:00 07/03/20 23 07/03/2023 rapid strep group A, throa t Strep negati ve Not Available [facility] [address], [place], [address], 07/03/2023 10:03:40 07/27/20 23 07/27/2023 influ aysha virus A + B + SARS- CoV-2 (COVI D19) Ag panel , rapid IA, upper respi rator y speci men FLU A negati ve Not Available [facility] [address], [place], [address], 07/27/2023 15:59:10 07/27/20 23 07/27/2023 influ aysha virus A + B + SARS- CoV-2 (COVI D19) Ag panel , rapid IA, upper respi rator y speci men FLU B negati ve Not Available [facility] [address], [place], [address], 07/27/2023 15:59:10 07/27/20 23 07/27/2023 influ aysha virus A + B + SARS- CoV-2 (COVI D19) Ag panel , rapid IA, upper respi rator y speci men SARS COV + SARS OV 2 negati ve Not Available [facility] [address], [place], [address], 07/27/2023 15:59:10 11/21/19 24 11/23/2023 URINE CULTU RE, ROUTI NE urine culture, routine FINAL REPORT Not Available [facility] ([facility]) [address] [facility] [address], [place], [address], 11/23/2023 06:20:13 11/21/19 24 11/23/2023 URINE CULTU RE, ERIC NE result 1 COMMEN T Mixed uroge nital alberto 10,00 0-25, 000 colon y formi ng units per mL Not Available [facility] ([facility]) [address] [facility] [address], [place], [address], 11/23/2023 06:20:13 11/21/19 24 11/21/2023 urina lysis , dipst ick Leukocytes (reference range) negati ve Not Available [facility] [address] [facility] [address], [place], [address], 11/21/2023 09:58:40 11/21/19 24 11/21/2023 urina lysis , dipst ick Nitrite (reference range:) negati ve Not Available [facility] [address] [facility] [address], [place], [address], 11/21/2023 09:58:40 11/21/19 24 11/21/2023 urina lysis , dipst ick Urobilinogen (reference range) 4 Not Available [facility] [address], [place], [address], 11/21/2023 09:58:40 11/21/19 24 11/21/2023 urina lysis , dipst ick Protein (reference range) negati ve Not Available [facility] [address], [place], [address], 11/21/2023 09:58:40 11/21/19 24 11/21/2023 urina lysis , dipst ick pH (reference range 5-8.5) 6.0 Not Available [facility] [address], [place], [address], 11/21/2023 09:58:40 11/21/19 24 11/21/2023 urina lysis , dipst ick Blood (reference range:) negati ve Not Available [facility] [address], [place], [address], 11/21/2023 09:58:40 11/21/19 24 11/21/2023 urina lysis , dipst ick Specific [place] (reference range) 1.025 Not Available [facility] [address] [facility] [address], [place], [address], 11/21/2023 09:58:40 11/21/19 24 11/21/2023 urina lysis , dipst ick Ketone (reference range) negati ve Not Available [facility] [address], [place], [address], 11/21/2023 09:58:40 11/21/19 24 11/21/2023 urina lysis , dipst ick Bilirubin (reference range) negati ve Not Available [facility] [address], [place], [address], 11/21/2023 09:58:40 11/21/1911/21/2023 urina lysis , dipst ick Glucose (reference range) negati ve Not Available [facility] [address], [place], [address], 11/21/2023 09:58:40 11/21/19 24 11/21/2023 urina lysis , dipst ick Color (reference range: yellow-brown ) Pale Yellow Not Available [facility] [address], [place], [address], 11/21/2023 09:58:40 06/12/20 24 06/12/2024 rapid strep group A, throa t Strep positi ve Not Available [facility] [address], [place], [address], Ph [phone] 06/12/2024 12:51:24 Result Notes None recorded. Problems Name Problem SNOMED Code Status Onset Date Resolution Date Notes Provider Name and Address Organization Details Recorded Time Fever 726503950 Active 2022 NORBERTO madison, CHRISTIE CAMARENA [facility] [place] 3 10:03:20 Generalized aches and pains 18967973 Active 2022 MAVERICK madison, CHRISTIE CAMARENA [facility] [place] 3 15:59:07 Problem Notes None recorded. Procedures Surgical History Date Name Laterality Status Provider Name and Address Organization Details Recorded Time Caesarean Section completed NORBERTO CAMARENA [facility] [place] 07/03/2023 09:56:06 cholecystectomy completed NORBERTO CAMARENA [facility] [place] 07/03/2023 09:56:13 sinusotomy, multiple completed NORBERTO CAMARENA [facility] [place] 07/03/2023 09:56:22 tonsilectomy/adenoi ds completed NORBERTO CAMARENA [facility] [place] 07/03/2023 09:56:58 Imaging Results None recorded. Procedure Notes None recorded. Medical Equipment None Reported. Allergies Allergen ID Allergen Name Allergen Category Reaction Reaction Severity Criticality Documentation Date Start Date Code Code System Note Provider Name and Address Organization Details Recorded Time 875549 Keflex medicatio n ringing in ears mild low 07/03/2023 82865 7 RxNorm CHRISTIE Manzano [facility] [place] 3 09:54:34 291420 Substance with sulfonami de structure and antibacte rial mechanism of action (substanc e) medicatio n other mild low 07/03/2023 38832 8003 SNOMED NORBERTO madison, CHRISTIE CAMARENA [facility] [place] 09:54:48 Medications Name Sig Start Date Stop [...] Available Vitals Date Recorded Body weight Body mass index (BMI) Body height Body temperature Oxygen saturation Oxygen saturation in Arterial blood by Pulse oximetry Systolic And Diastolic Provider Name and Address Organization Details Last Updated DateTime 4 74821.1 5 g 31.5 kg/m2 162.56 cm 97.9 [degF] 98 % 98 % 116/75 mm[Hg] Chanel Bush [facility] & [place] 4 09:58:29 Date Recorded Body height Body mass index (BMI) Body weight Body temperature Oxygen saturation Oxygen saturation in Arterial blood by Pulse oximetry Heart rate Systolic And Diastolic Provider Name and Address Organization Details Last Updated DateTime 4 162.56 cm 31.4 kg/m2 38123.4 g 98.1 [degF] 99 % 99 % 112 /min 103/66 mm[Hg] Bry Stanton [facility] [place] 4 12:51:17 Date Recorded Body weight Body temperature Oxygen saturation Oxygen saturation in Arterial blood by Pulse oximetry Heart rate Systolic And Diastolic Provider Name and Address Organization Details Last Updated DateTime 3 57347.2 9 g 97.7 [degF] 99 % 99 % 113 /min 132/71 mm[Hg] NORBERTO CARLYN [facility] & [place] 3 09:59:01 Date Recorded Body weight Body temperature Heart rate Systolic And Diastolic Provider Name and Address Organization Details Last Updated DateTime 07/27/2023 19339.4 g 98.1 [degF] 144 /min 129/82 mm[Hg] MAVERICK MOORE [place] - [facility] [place] 07/27/2023 15:58:31 Social History None recorded. Functional Status None [...] Influenza, MDCK, quadrivalent, PF 06/13/2019 completed NORBERTO SALSMAN null, [place] - [facility] [place] 07/03/2023 09:54:17 COVID-19, mRNA, LNP-S, PF, 100 mcg/0.5mL dose or 50 mcg/0.25mL dose 09/04/2020 completed NORBERTO SALSMAN null, [place] - [facility] [place] 07/03/2023 09:54:17 COVID-19, mRNA, LNP-S, PF, 100 mcg/0.5mL dose or 50 mcg/0.25mL dose 10/02/2020 completed NORBERTO SALSMAN null, [place] - [facility] [place] 07/03/2023 09:54:18 COVID-19, mRNA, LNP-S, PF, 100 mcg/0.5mL dose or 50 mcg/0.25mL dose 04/22/2021 completed NORBERTO SALSMAN null, [place] - [facility] [place] 07/03/2023 09:54:18 TST-PPD intradermal 11/26/2014 completed NORBERTO SALSMAN null, [place] - [facility] [place] 07/03/2023 09:54:18 Influenza, split virus, quadrivalent, PF 04/22/2021 completed NORBERTO SALSMAN null, [place] - [facility] - [place] [facility] [place] 07/03/2023 09:54:18 Past Encounters Encounter ID Performer Location Encounter Start Date Encounter Closed Date Diagnosis/Indication Diagnosis SNOMED-CT Code Diagnosis ICD10 Code Diagnosis Note [id number] Shay Albrecht MD [facility] [address] [facility] [place] [address] 07/03/2023 09:41:50 07/03/2023 10:26:14 Fever 537229492 R50.9 Influenza caused by Influenza B virus 65793885 J10.1 Rest, plenty of fluids, OTC symptomati c treatment. Return for failure several days or sooner if worsening. Outside window of ideal timing for Tamiflu but will give trial. Zofran for nausea. Will also add steroids [id number] Cassandra Albrecht APRN [facility] [address] [facility] [place] [address] 07/27/2023 15:44:35 07/27/2023 16:16:02 Generalized aches and pains 02392549 R52 Acute bact erial sinusitis 23413585 J01.90 patient states that she can take augmentin with no side effects Cough 62120496 R05.9 [id number] Shay Albrecht MD [facility] [address] [facility] [address] [place] [address] 11/21/2023 09:48:31 11/21/2023 10:08:42 Acute urinary tract infection 839396279 N39.0 Will treat based on symptoms. Culture. Return for failure to improve over next several days, sooner if worsening. [id number] Cameron Uribe PA-C [facility] [address] [place] [address] 06/12/2024 12:43:36 06/12/2024 13:12:36 Acute streptococcal pharyngitis 0941971457 J02.0 Health Concerns Section Related Observation LastModified by Organization Detai ls LastModified Time None Recorded Concern Status LastModified by Organization Details LastModified Time None Recorded Advance Directives Directive None Recorded Payers Insurance Date Sequence Insurance Name Policy Number Policy Gregg Covered Member ID Gregg Member ID Guarantor Name 06/15/2024 1 [place] [id number] Blanca Colindres [id number] Blanca Colindres 07/03/2023 1 [place] [id number] Blanca Colindres [id number] Blanca Colindres 06/15/2024 1 [employer] (EPO) [id number] Nasrin Colindres [id number] Blanca Colindres Notes Date Note Type Note Provider Name and Address Organization Details Recorded Time 07/03/2023 text/html CoughReported bypatient.Quality:pro ductive Severity:moderate Duration:constant Onset/Timing:gradual Associated Symptoms:no vomiting;fever;chills ;nausea;nasal discharge;muscle pain;tiredness Shay Albrecht MD [address], [place], [address] & [place] 07/03/2023 10:36:44 07/27/2023 text/html Upper Respirator y [...] throat;diarrhea;heada omar; sinus pressure and pain Cassandra Albrehct APRN [address] , [place], [address], [facility] [place] 07/27/2023 16:22:50 11/21/2023 text/html Dysuria, urinary frequency this morning. Feels like prior UTI's but has not had one in years. Has had some left sided/flank pain for about a week and a half. Unsure if related or if may be more an issue with her Crohn's disease. Shay Albrecht MD [address], [place], [address], [facility] 11/21/2023 10:14:45 06/12/2024 text/html 34-year-old dionne evangelista presents to the clinic complaining of sore throat that began last night and has worsened. She reports that her child was diagnosed with strep pharyngitis by their windsurfing instructor this morning. Patient denies fever, chills, headache, body aches, cough, congestion, or any other symptoms. Cameron Uribe PA-C [address], [place], [address], [facility] [place] 06/12/2024 13:11:26 OBGyn Episode No OBEpisode recorded.
--- OUTSIDE RECORDS SUMMARY | 2025-02-25 14:14 | XMS_ITS | Clinical Summary ---
Author Organization [employer] ([place], [place], [place], [place]) Address [address] [place] [address] Care Team Providers Care Stock Driver Name Role Phone Terry Huynh MD Primary Care Provider [phone] Social History Tobacco Use Types Packs/Day Years Used Date Smoking Tobacco: Never Assessed Comments Unknown Sex and Gender Information Value Date Recorded Sex Assigned at Not on file Legal Sex Female 6:49 PM CDT Gender Identity Not on file Sexual Orientation Not on file Plan of Treatment Health Maintenance Due Date Last Done Comments Depression Screening (12+) 2001 Tobacco Cessation Counseling and Screening (12+) 2001 DTAP/TDAP/TD VACCINES (1 - Tdap) 2008 Pap Smear 2010 COVID-19 VACCINE (2023-2 5 season) 2024 04/22/2021, 10/02/2020, 09/04/2020 Influenza Vaccine (#1) 2025 06/13/2019 Pneumococcal Vaccine: 0-49 Years Aged Out No longer eligible b ased on patient's age to complete this topic Insurance [employer] Care Teams Stock Driver Relationship Specialty Start Date End Date Terry Huynh MD [address] [place] [id number] PCP - General Family Medicine 07/10/22
--- OUTSIDE RECORDS SUMMARY | 2025-02-25 14:14 | XMS_ITS | Encounter Summary ---
Author Organization Healthcare Address [address] [place] [address] Care Team Providers Care Collection Technician Name Role Phone Teodoro Huynh MD Primary Care Provider [phone] Encounter Details Date Type Department Care Team (Late st Contact Info) Description 09/17/2024 Lab Requisition [facility] [address] [place] [address] Leslie Cook L, DO [address] [place] [address] Crohn's disease of large intestine without complications (CMS/HCC) Social History Tobacco Use Types Packs/Day Years Used Date Smoking Tobacco: Never Passive Smoke Exposure: Never Smokeless Tobacco: Never Alcohol Use Standard Drinks/Week Comments Not Currently 0 (1 standard drink = 0.6 oz pur e alcohol) PHQ-2 Answer Date Recorded Patient Health Questionnaire-2 Score 0 07/29/2024 PHQ-9 Answer Date Recorded Patient Health Questionnaire-9 Score 0 07/29/2024 Comments No Sex and Gender Information Value Date Recorded Sex Assigned at Female 10/09/2023 12:07 PM EST Legal Sex Female 12:12 PM EST Gender Identity Female 10/09/2023 12:07 PM EST Sexual Orientation Straight 10/09/2023 12 :07 PM EST documented as of this encounter Plan of Treatment Not on file documented as of this encounter Procedures Procedure Name Priority Date/Time Associated Diagnosis Comments CBC WITH AUTO DIFFERENTIAL Routine 09/17/2024 9:45 AM EST Crohn's disease of large intestine without complications (CMS/HCC) C-REACTIVE PROTEIN, PLASMA Routine 09/17/2024 9:45 AM EST Crohn's disease of large intestine without complications (CMS/HCC) COMPREHENSIVE METABOLIC PANEL, PLASMA Routine 09/17/2024 9:45 AM EST Crohn's disease of large intestine without complications (CMS/HCC) documented in this encounter Results * CBC and Differential (09/17/2024 9:45 AM EST) Pathologist [facility] WBC Count 4.81 3.70 - 10.30 10*3/uL LAB HEMATOLOGY METHOD 09/17/2024 11:14 AM EST [facility] RBC Count 4.26 3.90 - 5.20 10*6/uL LAB HEMATOLOGY METHOD 09/17/2024 11:14 AM EST [facility] HGB 13.5 11.2 - 15.7 g/dL LAB HEMATOLOGY METHOD 09/17/2024 11:14 AM EST [facility] HCT 40.0 34.0 - 45.0 % LAB HEMATOLOGY METHOD 09/17/2024 11:14 AM EST [facility] Platelet Count 218 155 - 369 10*3/uL LAB HEMATOLOGY METHOD 09/17/2024 11:14 AM EST [facility] MCV 94 79 - 98 fL LAB HEMATOLOGY METHOD 09/17/2024 11:14 AM EST [facility] MCH 31.7 26.0 - 32.0 pg LAB HEMATOLOGY METHOD 09/17/2024 11:14 AM EST [facility] MCHC 33.8 30.7 - 35.5 g/dL LAB HEMATOLOGY METHOD 09/17/2024 11:14 AM EST [facility] RDW 12.0 11.5 - 14.5 % LAB HEMATOLOGY METHOD 09/17/2024 11:14 AM EST [facility] MPV 10.8 8.8 - 12.5 fL LAB HEMATOLOGY METHOD 09/17/2024 11:14 AM EST [facility] nRBC 0.0 <=0.0 per 100 WBCs LAB HEMATOLOGY METHOD 09/17/2024 11:14 AM EST [facility] Differential Type Automated LAB HEMATOLOGY METHOD 09/17/2024 11:14 AM EST [facility] Neutrophils % 50 % LAB HEMATOLOGY METHOD 09/17/2024 11:14 AM [facility] Lymphocytes % 41 % LAB HEMATOLOGY METHOD 09/17/2024 11:14 AM EST [facility] Monocytes % 7 % LAB HEMATOLOGY METHOD 09/17/2024 11:14 AM EST [facility] Eosinophils % 1 % LAB HEMATOLOGY METHOD 09/17/2024 11:14 AM EST [facility] Basophils % 0 % LAB HEMATOLOGY METHOD 09/17/2024 11:14 AM EST [facility] Immature Granulocytes % 1 % LAB HEMATOLOGY METHOD 09/17/2024 11:14 AM EST [facility] Neutrophils Absolute 2.38 1.60 - 6.10 10*3/uL LAB HEMATOLOGY METHOD 09/17/2024 11:14 AM EST [facility] Lymphocytes Absolute 1.97 1.20 - 3.90 10*3/uL LAB HEMATOLOGY METHOD 09/17/2024 11:14 AM EST [facility] Monocytes Absolute 0.35 0.30 - 0.90 10*3/uL LAB HEMATOLOGY METHOD 09/17/2024 11:14 AM EST [facility] Eosinophils Absolute 0.05 0.00 - 0.50 10*3/uL LAB HEMATOLOGY METHOD 09/17/2024 11:14 AM EST [facility] Basophils Absolute 0.02 0.00 - 0.10 10*3/uL LAB HEMATOLOGY METHOD 09/17/2024 11:14 AM EST [facility] Immature Granulocytes Absolute 0.04 0.00 - 0.06 10*3/uL LAB HEMATOLOGY METHOD 09/17/2024 11:14 AM EST [facility] Blood Venous blood specimen / Unknown 09/17/2024 9:45 AM EST 09/17/2024 11:10 AM EST Narrative [facility] - 09/17/2024 11:14 AM EST Therapeutic decision making should be based on absolute values, rather than percentages. us Leslie Cook DO LAB BLOOD ORDERABLES Final R esult [facility] [address] [place] [address] * C-reactive protein (09/17/2024 9:45 AM EST) CRP, Plasma 7.2 <=8.0 mg/L 09/17/2024 11:28 AM EST [facility] Blood Venous blood specimen / Unknown 09/17/2024 9:45 AM EST 09/17/2024 11:10 AM EST [facility] - 09/17/2024 11:28 AM EST This CRP test is appropriate for assessment of infection, systemic inflammation and/or tissue injury. To assess cardiovascular disease risk order high sensitivity CRP (CRPH). Leslie Cook DO LAB BLOOD ORDERABLES Final R esult [facility] [address] [place] [address] * (ABNORMAL) Comprehensive metabolic panel (09/17/2024 9:45 AM EST) Glucose, Plasma 76 74 - 99 mg/dL 09/17/2024 11:28 AM [facility] BUN, Plasma 11 7 - 21 mg/dL 09/17/2024 11:28 AM [facility] Creatinine, Plasma 0.82 0.60 - 1.10 mg/dL 09/17/2024 11:28 AM [facility] BUN/Creatinine Ratio 13 09/17/2024 11:28 AM [facility] Sodium, Plasma 140 136 - 145 mmol/L 09/17/2024 11:28 AM [facility] Potassium, Plasma 3.9 3.6 - 4.9 mmol/L 09/17/2024 11:28 AM [facility] Chloride, Plasma 107 97 - 107 mmol/L 09/17/2024 11:28 AM [facility] CO2, Plasma 23 22 - 29 mmol/L 09/17/2024 11:28 AM EST [facility] Anion Gap 10 6 - 16 mmol/L 09/17/2024 11:28 AM [facility] Total Calcium, Plasma 8.0(L) 8.9 - 10.2 mg/dL 09/17/2024 11:28 AM [facility] Total Protein 6.8 6.3 - 7.9 g/dL 09/17/2024 11:28 AM [facility] Albumin, Plasma 4.0 3.5 - 5.2 g/dL 09/17/2024 11:28 AM [facility] AST, Plasma 24 10 - 35 U/L 09/17/2024 11:28 AM EST [facility] ALT, Plasma 11 10 - 35 U/L 09/17/2024 11:28 AM EST [facility] Alkaline Phosphatase, Plasma 67 35 - 104 U/L 09/17/2024 11:28 AM EST [facility] Total Bilirubin, Plasma <0.2(L) 0.2 - 1.1 mg/dL 09/17/2024 11:28 AM EST [facility] eGFRcr 95.8 mL/min/1.7 3m*2 09/17/2024 11:28 AM EST [facility] Comment:Reported eGFRcr in m L/min/1.73m2 is based the CKD-EPI 2020 equation that does not use a race coefficient. Blood Venous blood specimen / Unknown 09/17/2024 9:45 AM EST 09/17/2024 11:10 AM EST Leslie Cook DO LAB BLOOD ORDERABLES Final R esult Performing Organization Address City/State/[facility] Co de Phone Number [facility] [address] [place] [address] documented in this encounter Visit Diagnoses Diagnosis Crohn's disease of large intestine without complications (CMS/HCC) documented in this encounter Additional Health Concerns Assessment Noted Time PHQ-9 Depression Total Score: 0 07/29/20 9:35 AM EST A fall risk assessment has been complete d for the patient 07/29/2024 9:36 AM EST A Body Mass Index follow-up plan has been documented for the patient 08/03/2024 11:17 PM EST documented as of this encounter Care Teams Collection Technician Relationship Specialty Start Date End Date Teodoro Huynh MD PCP - General 06/27/23 documented as of this encounter
--- OUTSIDE RECORDS SUMMARY | 2025-02-25 14:14 | XMS_ITS | Patient Health Record ---
Author Organization [facility] Address [address] [place] [address] Care Team Providers Care Fast Food Worker Name Role Phone Roxy Alvarez Unavailable [phone] Kate Meehan Unavailable [phone] Allergies Allergen (clinical drug ingredient) Drug/Non Drug Allergy documented on EMR Reaction Allergy Type Onset Date Status Keflex Anaphylaxis Drug Allergy Activ e MiraLax vomiting Drug Allergy Active sulfamethoxazole / trimethoprim SULFAMETHOXAZOLE- TRIMETHOPRIM Anaphylaxis Drug Allergy 11/26/2014 Active amoxicillin Amoxicillin stomach upset Drug Allergy Active Results Component Value Reference Range Notes Urine HCG - In House Reviewed date:03/25/2024 09:31:03 AM Interpretation:Negative Performing Lab: Notes/Report: Negative Reason For Referral No Information Medications Medication SIG (Take, Route, Frequency, Duration) Notes Start Date End Date Status Humira 40 MG/0.4ML Prefilled Syringe Kit 0.4 ml Subcutaneous Active Imitrex 5 MG/ACT Solution 1 spray at ons et of headache in one nostril may repeat dose after 2 hours as needed Nasally Once a day; Duration: 30 days PRN 10/14/2021 Active Lexapro Active Methotrexate Active Qulipta Active Social History Tobacco Use: Social History Observation Description Date Details (start date - stop date) Never Smoker NA - NA Social History Drugs/Alcohol: Social Info Question Answer Notes Drugs Have you used drugs other than those for medical reasons in the past 12 months? No Steroid Use Have you used anabolic (body building) st eroids? No Alcohol Screen Did you have a drink containing alcohol in the past year? No Points 0 Interpretation Negative Tobacco Use: Social Info Question Answer Notes Tobacco Use/Smoking Are you a nonsmoker Problems Problem Type SNOMED Code ICD Code Onset Dates Problem Status W/U Status Risk Notes Problem Endometriosis (247229192) Endometriosis (N80.9) Active confirmed Problem Polycystic bilateral ovaries (disorder) (202752585) Bilateral polycystic ovarian syndrome (E28.2) 021 Active confirmed Polycystic ovary syndrome Problem Fistula of large intestine due to Crohn's disease (065891029844164 9) Crohn's disease of large intestine with fistula (K50.113) Active confirmed Problem Supervision of high risk (321710280) Supervision of other high risk pregnancies, third trimester (O09.893) Active confirmed Problem Migraine without aura, not refractory (497105049) Migraine without aura and without status migrainosus, not intractable (G43.009) Active confirmed Problem Bacteriuria (31236771) GBS bacteriuria (R82.71) Active confirmed Problem Dysmenorrhea (824251918) Dysmenorrhea (N94.6) Active confirmed Problem Pain in pelvis (22070232) Pelvic pain (R10.2) Active confirmed Vital Signs Blood pressure diastolic 78 mm Hg 03/25/2024 Height 65 in 03/25/2024 Blood pressure systolic 116 mm Hg 03/25/2024 Weight 163.8 lbs 03/25/2024 BMI 27.25 kg/m2 03/25/2024 Encounters Encounter Location Date Provider Diagnosis [facility] [address] [place] [address] 06/26/2024 Kate Meehan [facility] [address] [facility] [address] [place] [address] 03/25/2024 Kate Meehan Encounter for initia l prescription of implantable subdermal contraceptive Z30.017 Assessments Encounter Date Diagnosis (ICD Code) Assessment Notes Treatment Notes Treatment Clinical Notes Section Notes 03/25/2024 Encounter for initial prescription of implantable subdermal contraceptive (ICD-10 - Z30.017) - UPT negative - nexplanon placed without difficulty - device effective x 3y after insertion - RTC for annual or PRN Plan Of Treatment No Information Insurance Providers Payer Name Payer Address Payer Phone Subscriber Number Group Number Insured Name Patient Relationship to Insured Coverage Start Date Coverage End Date [facility] [address] GILBERT Nguyen [id number] Blanca Colindres Self - patient is the insured 4 Medical (General) History Medical History History ICD Code IBS Yeast infections UTIs Psoriasis anxiety chrohns disease migraines Surgical History Surgery Date(Month/Year) T&A Fistulotomy w/ advancement flap summer 017 Sinus surgery 04/13/19 Caesarean section 03/05/22 Hospitalization History Reason Date(Month/Year) Caesarean section 03/05/22
--- OUTSIDE RECORDS SUMMARY | 2025-02-25 14:14 | XMS_ITS | Encounter Summary ---
Author Organization Healthcare Address [address] [place] [address] Care Team Providers Care Chief Deputy Court Clerk Name Role Phone Teodoro Huynh MD Primary Care Provider [phone] Encounter Details Date Type Department Care Team (Late st Contact Info) Description 10/15/2024 Lab Requisition [facility] [address] [place] [address] Leslie Cook L, DO [address] [place] [address] Crohn's disease of large intestine [...] Diagnosis Comments CBC WITH AUTO DIFFERENTIAL Routine 10/15/2024 10:00 AM EST Crohn's disease of large intestine without complications (CMS/HCC) C-REACTIVE PROTEIN, PLASMA Routine 10/15/2024 10:00 AM EST Crohn's disease of large intestine without complications (CMS/HCC) COMPREHENSIVE METABOLIC PANEL, PLASMA Routine 10/15/2024 10:00 AM EST Crohn's disease of large intestine without complications (CMS/HCC) documented in this encounter Results * (ABNORMAL) CBC and Differential (10/15/2024 10:00 AM EST) WBC Count 5.68 3.70 - 10.30 10*3/uL LAB HEMATOLOGY METHOD 10/15/2024 12:49 PM EST [facility] RBC Count 4.54 3.90 - 5.20 10*6/uL LAB HEMATOLOGY METHOD 10/15/2024 12:49 PM EST [facility] HGB 14.2 11.2 - 15.7 g/dL LAB HEMATOLOGY METHOD 10/15/2024 12:49 PM EST [facility] HCT 42.0 34.0 - 45.0 % LAB HEMATOLOGY METHOD 10/15/2024 12:49 PM EST [facility] Platelet Count 206 155 - 369 10*3/uL LAB HEMATOLOGY METHOD 10/15/2024 12:49 PM EST [facility] MCV 93 79 - 98 fL LAB HEMATOLOGY METHOD 10/15/2024 12:49 PM EST [facility] MCH 31.3 26.0 - 32.0 pg LAB HEMATOLOGY METHOD 10/15/2024 12:49 PM EST [facility] MCHC 33.8 30.7 - 35.5 g/dL LAB HEMATOLOGY METHOD 10/15/2024 12:49 PM EST [facility] RDW 11.9 11.5 - 14.5 % LAB HEMATOLOGY METHOD 10/15/2024 12:49 PM EST [facility] MPV 10.9 8.8 - 12.5 fL LAB HEMATOLOGY METHOD 10/15/2024 12:49 PM EST [facility] nRBC 0.0 <=0.0 per 100 WBCs LAB HEMATOLOGY METHOD 10/15/2024 12:49 PM EST [facility] Differential Type Automated LAB HEMATOLOGY METHOD 10/15/2024 12:49 PM EST [facility] Neutrophils % 58 % LAB HEMATOLOGY METHOD 10/15/2024 12:49 PM EST [facility] Lymphocytes % 32 % LAB HEMATOLOGY METHOD 10/15/2024 12:49 PM EST [facility] Monocytes % 8 % LAB HEMATOLOGY METHOD 10/15/2024 12:49 PM EST [facility] Eosinophils % 1 % LAB HEMATOLOGY METHOD 10/15/2024 12:49 PM EST [facility] Basophils % 0 % LAB HEMATOLOGY METHOD 10/15/2024 12:49 PM EST [facility] Immature Granulocytes % 1 % LAB HEMATOLOGY METHOD 10/15/2024 12:49 PM EST [facility] Neutrophils Absolute 3.31 1.60 - 6.10 10*3/uL LAB HEMATOLOGY METHOD 10/15/2024 12:49 PM EST [facility] Lymphocytes Absolute 1.79 1.20 - 3.90 10*3/uL LAB HEMATOLOGY METHOD 10/15/2024 12:49 PM EST [facility] Monocytes Absolute 0.44 0.30 - 0.90 10*3/uL LAB HEMATOLOGY METHOD 10/15/2024 12:49 PM EST [facility] Eosinophils Absolute 0.04 0.00 - 0.50 10*3/uL LAB HEMATOLOGY METHOD 10/15/2024 12:49 PM [facility] Basophils Absolute 0.02 0.00 - 0.10 10*3/uL LAB HEMATOLOGY METHOD 10/15/2024 12:49 PM [facility] Immature Granulocytes Absolute 0.08(H) 0.00 - 0.06 10*3/uL LAB HEMATOLOGY METHOD 10/15/2024 12:49 PM EST [facility] Blood Venous blood specimen / Unknown 10/15/2024 10:00 AM EST 10/15/2024 12:32 PM EST Narrative [facility] - 10/15/2024 12:49 PM EST Therapeutic decision making should be based on absolute values, rather than percentages. us Leslie Cook DO LAB BLOOD ORDERABLES Final R esult [facility] [address] [place] [address] * C-reactive protein (10/15/2024 10:00 AM EST) CRP, Plasma <3.0 <=8.0 mg/L 10/15/2024 1:01 PM EST [facility] Blood Venous blood specimen / Unknown 10/15/2024 10:00 AM EST 10/15/2024 12:32 PM EST Narrative [facility] - 10/15/2024 1:01 PM EST This CRP test is appropriate for assessment of infection, systemic inflammation and/or tissue injury. To assess cardiovascular disease risk order high sensitivity CRP (CRPH). us Leslie Cook DO LAB BLOOD ORDERABLES Final R esult [facility] [address] [place] [address] * Comprehensive metabolic panel (10/15/2024 10:00 AM EST) Glucose, Plasma 91 74 - 99 mg/dL 10/15/2024 1:01 PM EST [facility] BUN, Plasma 14 7 - 21 mg/dL 10/15/2024 1:01 PM [facility] Creatinine, Plasma 0.83 0.60 - 1.10 mg/dL 10/15/2024 1:01 PM [facility] BUN/Creatinine Ratio 17 10/15/2024 1:01 PM [facility] Sodium, Plasma 138 136 - 145 mmol/L 10/15/2024 1:01 PM [facility] Potassium, Plasma 4.3 3.6 - 4.9 mmol/L 10/15/2024 1:01 PM [facility] Chloride, Plasma 106 97 - 107 mmol/L 10/15/2024 1:01 PM [facility] CO2, Plasma 23 22 - 29 mmol/L 10/15/2024 1:01 PM EST [facility] Anion Gap 9 6 - 16 mmol/L 10/15/2024 1:01 PM [facility] Total Calcium, Plasma 9.1 8.9 - 10.2 mg/dL 10/15/2024 1:01 PM [facility] Total Protein 7.4 6.3 - 7.9 g/dL 10/15/2024 1:01 PM [facility] Albumin, Plasma 4.4 3.5 - 5.2 g/dL 10/15/2024 1:01 PM [facility] AST, Plasma 21 10 - 35 U/L 10/15/2024 1:01 PM EST [facility] ALT, Plasma 12 10 - 35 U/L 10/15/2024 1:01 PM EST [facility] Alkaline Phosphatase, Plasma 75 35 - 104 U/L 10/15/2024 1:01 PM EST [facility] Total Bilirubin, Plasma 0.2 0.2 - 1.1 mg/dL 10/15/2024 1:01 PM EST [facility] eGFRcr 94.4 mL/min/1.7 3m*2 10/15/2024 1:01 PM EST [facility] Comment:Reported eGFRcr in m L/min/1.73m2 is based the CKD-EPI 2020 equation that does not use a race coefficient. Blood Venous blood specimen / Unknown 10/15/2024 10:00 AM EST 10/15/2024 12:32 PM EST Leslie Cook DO LAB BLOOD ORDERABLES Final R esult Performing Organization Address City/State/[facility] de Phone Number [facility] [address] [place] [address] documented in this encounter Visit Diagnoses Diagnosis [...] documented as of this encounter Care Teams Chief Deputy Court Clerk Relationship Specialty Start Date End Date Teodoro Huynh MD PCP - General 06/27/23 documented as of this encounter
--- OUTSIDE RECORDS SUMMARY | 2025-02-25 14:14 | XMS_ITS | Encounter Summary ---
Author Organization Healthcare Address [address] [place] [address] Care Team Providers Care Mixing And Molding Machine Operator Name Role Phone Teodoro Huynh MD Primary Care Provider [phone] Reason for Visit * Reason Onset Date Comments Ainsley wheeler 07/29/2024 Encounter Details Date Type Department Care Team (Late st Contact Info) Description 07/29/2024 Telephone [facility] [address] [place] [id number] Flaco Crawford, PharmD [facility] Social History Tobacco Use Types Packs/Day Years Used Date Smoking Tobacco: Never Passive Smoke Exposure: Never Smokeless Tobacco: Never Alcohol Use Standard Drinks/Week Comments Not Currently 0 (1 standard drink = 0.6 oz pur e alcohol) PHQ-2 Answer Date Recorded Patient Health Questionnaire-2 Score 0 10/28/2024 PHQ-9 Answer Date Recorded Patient Health Questionnaire-9 Score 3 10/28/2024 Comments No Sex and Gender Information Value Date Recorded Sex Assigned at Female 10/09/2023 12:07 PM EST Legal Sex Female 12:12 PM EST Gender Identity Female 10/09/2023 12:07 PM EST Sexual Orientation Straight 10/09/2023 12 :07 PM EST documented as of this encounter Functional Status * Over the past 2 weeks, how often have you been bothered by any of the following problems? Question Answer Date of Assessment Author Little interest or pleasure in doing things Not at all 10/28/2024 11:44 AM Betty Chan Feeling down, depressed, or hopeless Not at all 10/28/2024 11:44 AM EDT Betty Song a Patient Health Questionnaire -2 Score 0 10/28/2024 11:44 AM EDT Betty Song a * Question Answer Date of Assessment Author Trouble falling or staying asleep, or sleeping too much Nearly every day 10/28/2024 11:44 AM EDT Betty Song a Feeling tired or having little energy Not at all 10/28/2024 11:44 AM EDT Betty Song a Poor appetite or overeating Not at all 10/28/2024 11 :44 AM EDT Betty Songa Feeling bad about yourself - or that you are a failure or have let yourself or your family down Not at all 10/28/2024 11:44 AM EDT Betty Song a Trouble concentrating on things, such as reading the newspaper or watching television Not at all 10/28/2024 11:44 AM EDT Betty Song a Moving or speaking so slowly that other people could have noticed? Or the opposite - being so fidgety or restless that you have been moving around a lot more than usual. Not at all 10/28/2024 11:44 AM EDT Betty Song a Thoughts that you would be better off or hurting yourself in some way Not at all 10/28/2024 11:44 AM EDT Jose Song Patient Health Questionnaire-9 Score 3 10/28/2024 11:44 AM EDT Jesus Song iia * If you checked off any problems on this questionnaire so far, Question Answer Date of Assessment Author How difficult have these problems made it for you to do your work, take care of things at home, or get along with other people? Not difficult at all 10/28/2024 11:44 AM Jose Chan documented as of this encounter Miscellaneous Notes * Telephone Encounter - Melissa Groves RN - 01/01/2025 12:55 PM EDT Updated IBD Labwork Monitoring List * Telephone Encounter - Melissa Groves RN - 12/03/2024 12:16 PM EDT Updated IBD Labwork Monitoring List * Telephone Encounter - Melissa Groves RN - 11/28/2024 6:30 PM EDT Reviewed pt's chart: - [facility] week 8 infusion lab work in [facility] - 11/12/2024 Will forward to [facility] Infusion Team and [facility] IBD PharmD, to notify. * Telephone Encounter - Melissa Groves RN - 10/16/2024 11:08 AM EST Reviewed pt's chart: - [facility] infusion completed with lab work on 10/15/2024 - Sky[facility] week 8 infusion due on or around 11/12/2024 - Pt is scheduled to see Dr. Cook for follow up on 10/28/2024 * Telephone Encounter - Melissa Groves RN - 10/01/2024 5:12 PM EST Reviewed pt's chart: - Lab work results from [facility] week 0 infusion in [facility] - 09/17/2024 - Sky[facility] week 4 infusion due - 10/15/2024 - Sky[facility] week 8 infusion due - 11/12/2024 * Telephone Encounter - Nova Lin, PharmD - 08/01/2024 1:51 PM EST SP Specialty Education Summary Patient was assessed via phone for initiation of drug therapy IV Sky[facility] for diagnosis Crohn's Disease. Plan for administration of therapy in infusion center and planned date of initiation: JUSTINE. Anticipated filling pharmacy is [facility]. Education and Counseling Medication specific education provided: Patient was offered counseling of their specialty medication and declined education. Patient specific/therapeutic goal(s) of therapy: Tolerate therapy Summary/Plan Pharmacist reviewed patient chart for allergies and current medication list, comorbidities, relevant medical history, potential barriers to care and mitigation of those barriers, if applicable. Therapy is clinically appropriate given patient's condition. Any available financial resources were discussed with patient and utilized if appropriate. Patient has no other identified problems or needs at this time as it pertains to this specialty medication. Nova Lin PharmD 08/01/24 1:52 PM documented in this encounter Plan of Treatment Not on file documented as of this encounter Visit Diagnoses Not on filedocumented in this encounter Additional Health Concerns Assessment Noted Time PHQ-9 Depression Total Score: 0 07/29/20 9:35 AM EST A fall risk assessment has been complete d for the patient 07/29/2024 9:36 AM EST A Body Mass Index follow-up plan has been documented for the patient 08/03/2024 11:17 PM EST documented as of this encounter Care Teams Mixing And Molding Machine Operator Relationship Specialty Start Date End Date Teodoro Huynh MD PCP - General 06/27/23 documented as of this encounter
--- OUTSIDE RECORDS SUMMARY | 2025-02-25 14:14 | XMS_ITS | Referral Summary ---
Author Organization [employer] ([place], [place], [place], [place]) Address [address] [place] [address] Care Team Providers Care Linux Support Engineer Name Role Phone Terry Huynh MD Primary Care Provider [phone] Social History Tobacco Use Types Packs/Day Years Used Date Smoking Tobacco: Never Assessed Comments Unknown Sex and Gender Information Value Date Recorded Sex Assigned at Not on file Legal Sex Female 6:49 PM CDT Gender Identity Not on file Sexual Orientation Not on file Plan of Treatment Not on file Insurance [employer] Care Teams Linux Support Engineer Relationship Specialty Start Date End Date Terry Huynh MD [address] [place] [id number] PCP - General Family Medicine 07/10/22
--- OUTSIDE RECORDS SUMMARY | 2025-02-25 14:14 | XMS_ITS | Data Portability ---
Author Organization [facility] [place] Sharlai c, [facility] [place] [facility] Address [address] [place] [address] Care Team Providers Care Medical Safety Director Name Role Phone SHAWNKARI Primary Care Provider [phone] BAMBI HINSON Operations Representative PHOEBE SHER Tiler'S Assistant Assessment Encounter Date Assessment Date Assessment LastModified [...] once her lumbar MRI is completed through [facility] and we will review. If all of [...] FOLLOW UP DAK 2024 11:20A M JEREMY GOMEZ-Bacilio Not available Not available Not available Lab Mycobacte rium tuberculo sis stimulate d gamma interfero n, qual, blood 2023 024 [facility], [address] [place] [address], [address], 03/27/2024 11:40:30 CBC w/ auto diff 2023 024 [facility], [address] [place] [address], [address], 03/24/2024 10:56:37 ESR (erythroc yte sedimenta tion rate), blood 2023 024 [facility], [address] [place] [address], [address], 03/24/2024 15:19:08 C reactive protein, QN, serum or plasma 2023 024 [facility], [address] [place] [address], [address], 03/24/2024 11:34:21 hepatic function panel, serum 2023 RENA [facility], [address] [place], [address], 03/24/2024 11:34:19 Referral None recorded. Procedures None recorded. Surgeries None recorded. Imaging None recorded. Medication Orders tretinoin 0.025 % topical cream 2023 [facility], [address], [place], [place], [phone], 05/13/2024 11:04:05 clindamyc in 1 % lotion 2023 [facility], [address], [place], [place], [id number], 05/13/2024 11:04:05 Patient TargetsNo targets recorded. Patient InstructionsNo instructions recorded. Reason for Referral None Reported. Results Created Date Observation Date Name Description Value Unit Range Abnormal Flag Note LastModifiedBy Organization Detail LastModifiedTime 03/24/20 24 03/24/2024 COMPL ETE BLOOD COUNT white blood cells 4.7 10*3/ uL 3.8-10 .8 normal Not Available [facility] [address] [place] [address], [address], 03/24/2024 10:56:37 03/24/20 24 03/24/2024 COMPL ETE BLOOD COUNT red blood cells 5.22 10*6/ uL 3.80-5 .20 high Not Available [facility] [address] [place], [address], 03/24/2024 10:56:37 03/24/20 24 03/24/2024 COMPL ETE BLOOD COUNT hemoglobin 16.4 g/dL 12.0-1 6.0 high Not Available [facility] [address] [place], [address], 03/24/2024 10:56:37 03/24/20 24 03/24/2024 COMPL ETE BLOOD COUNT hematocrit 47.6 % 35.0-4 7.0 high Not Available [facility] [address] [place] [address], [address], 03/24/2024 10:56:37 03/24/20 24 03/24/2024 COMPL ETE BLOOD COUNT MCV 91 fL 80-100 normal Not Available [facility] [address] [place] [address], [address], 03/24/2024 10:56:37 03/24/20 24 03/24/2024 COMPL ETE BLOOD COUNT MCH 32 pg 26-35 normal Not Available [facility] [address] [place] [address], [address], 03/24/2024 10:56:37 03/24/20 24 03/24/2024 COMPL ETE BLOOD COUNT MCHC 35 g/dL 32-36 normal Not Available [facility] [address] [place] [address], [address], 03/24/2024 10:56:37 03/24/20 24 03/24/2024 COMPL ETE BLOOD COUNT RDW 14.1 % 11.0-1 5.0 normal Not Available [facility] [address] [place] [address], [address], 03/24/2024 10:56:37 03/24/20 24 03/24/2024 COMPL ETE BLOOD COUNT MPV 9.6 fL 6.2-10 .5 normal Not Available [facility] [address] [place] [address], [address], 03/24/2024 10:56:37 03/24/20 24 03/24/2024 COMPL ETE BLOOD COUNT platelet count 181 10*3/ uL 150-40 0 normal Not Available [facility] [address] [place] [address], [address], 03/24/2024 10:56:37 03/24/20 24 03/24/2024 COMPL ETE BLOOD COUNT neutrophil,a bsolute 2.5 10*3/ uL 1.6-8. 4 normal Not Available [facility] [address] [place] [address], [address], 03/24/2024 10:56:37 03/24/20 24 03/24/2024 COMPL ETE BLOOD COUNT lymphocyte,a bsolute 1.7 10*3/ uL 0.4-5. 1 normal Not Available [facility] [address] [place] [address], [address], 03/24/2024 10:56:37 03/24/20 24 03/24/2024 COMPL ETE BLOOD COUNT monocyte,abs olute 0.4 10*3/ uL 0.0-1. 2 normal Not Available [facility] [address] [place] [address], [address], 03/24/2024 10:56:37 03/24/20 24 03/24/2024 COMPL ETE BLOOD COUNT eosinophil,a bsolute 0.1 10*3/ uL 0.0-0. 8 normal Not Available [facility] [address] [place] [address], [address], 03/24/2024 10:56:37 03/24/20 24 03/24/2024 COMPL ETE BLOOD COUNT basophil,abs olute 0.0 10*3/ uL 0.0-0. 3 normal Not Available [facility] [address] [place] [address], [address], 03/24/2024 10:56:37 03/24/20 24 03/24/2024 COMPL ETE BLOOD COUNT % neutrophils 52.6 % 42.0-7 8.0 normal Not Available [facility] [address] [place] [address], [address], 03/24/2024 10:56:37 03/24/20 24 03/24/2024 COMPL ETE BLOOD COUNT % lymphocytes 36.7 % 11.0-4 7.0 normal Not Available [facility] [address] [place] [address], [address], 03/24/2024 10:56:37 03/24/20 24 03/24/2024 COMPL ETE BLOOD COUNT % monocytes 8.4 % 0.0-11 .0 normal Not Available [facility] [address] [place] [address], [address], 03/24/2024 10:56:37 03/24/20 24 03/24/2024 COMPL ETE BLOOD COUNT % eosinophils 1.7 % 0.0-7. 0 normal Not Available [facility] [address] [place] [address], [address], 03/24/2024 10:56:37 03/24/20 24 03/24/2024 COMPL ETE BLOOD COUNT % basophils 0.6 % 0.0-3. 0 normal Not Available [facility] [address] [place] [address], [address], 03/24/2024 10:56:37 03/24/20 24 03/24/2024 COMPL ETE BLOOD COUNT nucleated red cells 0.1 % 0.0-0. 9 normal Not Available [facility] [address] [place] [address], [address], 03/24/2024 10:56:37 03/24/20 24 03/24/2024 COMPL ETE BLOOD COUNT nucleated RBCs, absolute 0.00 10*3/ uL not estab. normal Not Available [facility] [address] [place] [address], [address], 03/24/2024 10:56:37 03/24/20 24 03/24/2024 HEPAT IC (LIVE R) PANEL AST 30 U/L 0-32 normal Not Available [facility] [address] [place] [address], [address], 03/24/2024 11:34:19 03/24/20 24 03/24/2024 HEPAT IC (LIVE R) PANEL ALT 37 U/L 0-33 high Not Available [facility] [address] [place] [address], [address], 03/24/2024 11:34:19 03/24/20 24 03/24/2024 HEPAT IC (LIVE R) PANEL alkaline phosphatase 86 U/L 30-121 normal Not Available [facility] [address] [place] [address], [address], 03/24/2024 11:34:19 03/24/20 24 03/24/2024 HEPAT IC (LIVE R) PANEL total protein 8.3 g/dL 6.4-8. 3 normal Not Available [facility] [address] [place] [address], [address], 03/24/2024 11:34:19 03/24/20 24 03/24/2024 HEPAT IC (LIVE R) PANEL albumin 4.8 g/dL 3.5-5. 2 normal Not Available [facility] [address] [place] [address], [address], 03/24/2024 11:34:19 03/24/20 24 03/24/2024 HEPAT IC (LIVE R) PANEL bilirubin, total 0.5 mg/dL 0.1-1. 2 normal Not Available [facility] [address] [place] [address], [address], 03/24/2024 11:34:19 03/24/20 24 03/24/2024 HEPAT IC (LIVE R) PANEL bilirubin, direct <0.2 mg/dL 0.0-0. 3 normal Not Available [facility] [address] [place] [address], [address], 03/24/2024 11:34:19 03/24/20 24 03/24/2024 HEPAT IC (LIVE R) PANEL bilirubin, indirect see below mg/dL _(tanya c) 0.0-1. 0 normal Unabl e to calcu late Indir ect Bilir ubin. Not Available [facility] [address] [place] [address], [address], 03/24/2024 11:34:19 03/24/20 24 03/24/2024 C REACT MAR PROTE IN C reactive protein 0.22 mg/dL 0.00-0 .49 normal Not Available [facility] [address] [place] [address], [address], 03/24/2024 11:34:21 03/24/20 24 03/24/2024 ESR, AUTOM ATED ESR, automated 4 mm 0-19 normal Not Available [facility] [address] [place] [address], [address], 03/24/2024 15:19:08 03/24/20 24 03/27/2024 QUANT IFERO N TB GOLD qtb gold NEGATI VE negati ve normal Negat mar test resul t. M. tuber culos is compl ex infec tion unlik david. Not Available [facility] [address] [place] [address], [address], 03/27/2024 11:40:30 03/24/20 24 03/27/2024 QUANT IFERO N TB GOLD nil 0.11 IU/mL normal Not Available [facility] [address] [place] [address], [address], 03/27/2024 11:40:30 03/24/20 24 03/27/2024 QUANT IFERO N TB GOLD mitogen nil >10.00 IU/mL normal Not Available [facility] [address] [place] [address], [address], 03/27/2024 11:40:30 03/24/20 24 03/27/2024 QUANT IFERO N TB GOLD TB1 nil 0.00 IU/mL normal Not Available [facility] [address] [place] [address], [address], 03/27/2024 11:40:30 03/24/20 24 03/27/2024 QUANT IFERO N TB GOLD TB2 nil 0.02 IU/mL normal The Nil tube value refle cts the backg round inter feron gamma immun e respo nse of the patie nt's blood sampl e. This value has been subtr acted from the patie nt's displ ayed TB and Mitog en resul ts. Lower than expec silvia resul ts with the Mitog en tube preve nt false -nega tive Quant ifero n readi ngs by detec ting a patie nt with a poten tial immun e suppr essiv e condi tion and/o r subop timal pre-a nalyt ical speci men handl ing. The TB1 Antig en tube is coate d with the M. tuber culos is-sp ecifi c antig ens desig edith to elici t respo nses from TB antig en prime d CD4+ helpe r T-lym phocy sheri. The TB2 Antig en tube is coate d with the M. tuber culos is-sp ecifi c antig ens desig edith to elici t respo nses from TB antig en prime d CD4+ helpe r and CD8+ cytot oxic T-lym phocy sheri. For addit ional infor andrea ferrara e refer to https ://ed ucati on.qu nydia [employer].de. [employer]/f aq/FA Q204 (This link is being provi ded for infor amalia callahan/ educmoncho stephanie l purpo ses only. ) Not Available [facility] [address], [place], [address], 03/27/2024 11:40:30 02/12/20 25 02/02/2025 CT, cervi tanya spine [...] tanya spine , 4 or 5 view [facility] [address] [place] [address] Patien t Name: FLIP MUNOZ Patirandall t : [birth year] Patien t Orderi ng Provid er: CARLA Jha EXAM DATE: 2024 EXAM: XR CERVIC AL [...] Deluca MD on 025 10:31 AM INTERFACE [facility] [address] [place], [address], 02/20/2025 10:36:30 Result Notes Documentation Provider Name and Address Organization Details Recorded Time Xr, Cervical Spine, 4 Or 5 View : [facility] [address] [place] [address] Patient Name: BLANCA MUNOZ Patient : 1990 [...] Interpreted By: Gianluca Deluca MD Not Available [facility] 02/20/2025 10:36:30 Problems Name Problem SNOMED Code Status Onset Date Resolution Date Notes Provider Name and Address Organization Details Recorded Time Psoriasi s with arthropa thy Active 2014 From Automated Load;Prov ider: Abbas, Jeanne;St atus: Active Not Available [facility] 6 03:52:52 Perianal fistula 22838838 Completed 202003/18/2021 NEPTALI ABBOTT MD [address] [place] [address], [address] , [facility] 06:48:17 Crohn's disease of colon 03067486 Active 2020 NEPTALI ABBOTT MD [address] [place] [address], [address] [facility] 13:38:09 Problem Notes None recorded. Procedures Surgical History Date Name Laterality Status Provider Name and Address Organization Details Recorded Time 022 section completed Sharla Morris [facility] 04/10/2022 14:05:42 021 Endoscopy Nasal; Diagnostic completed Latisha Phipps [facility] 03/16/2021 10:15:27 021 Endoscopy Nasal; Diagnostic completed NOREEN SINCLAIR MD [address] [place] [address], [address], [facility] 01/28/2021 12:00:10 021 Endoscopy Nasal; Diagnostic completed NEPTALI GUIDRY, LOOM DOFFER [address] [place] [address], [address], [facility] 01/04/2021 16:23:59 020 Echocardiogram completed BHARATI RAY MD [address] [place] [address], [address], [facility] 06/03/2020 09:16:47 019 Endoscopy Nasal; Diagnostic completed NOREEN SINCLAIR MD [address] [place] [address], [address], [facility] 05/20/2019 14:05:24 019 Endoscopy Nasal; Biospy, Polypectomy or Debridement completed NOREEN SINCLAIR MD [address] [place], [address], [facility] 04/18/2019 16:54:34 019 Ears/Nose/Throat Surgery completed Feli Armentas [facility] 01/04/2021 16:07:19 Other completed [facility] 02/12/2017 12:06:37 Remove tonsils and adenoids completed [facility] 02/12/2017 12:06:43 Other completed [facility] 02/12/2017 12:06:51 cholecystectomy completed [facility] 08/26/2019 14:18:50 Imaging Results None recorded. Procedure Notes None recorded. Medical Equipment None Reported. Allergies Allergen ID Allergen Name Allergen Category Reaction Reaction Severity Criticality Documentation Date Start Date Code Code System Note Provider Name and Address Organization Details Recorded Time 536472 Substance with sulfonami de structure and antibacte rial mechanism of action (substanc e) medicatio n rash Not available Not available 07/07/20162015 96197 8003 SNOMED React ion: RASH; Comme nt: Creat ed By: Maxi rgCre ated Date: 016 11:02 :10 AM; Not Available [facility] 6 09:19:59 [id number] Flagyl medicatio n vomiting Not available Not available 07/17/2022 6 RxNorm Colleen Estrada [facility] 2 16:01:33 [id number] Keflex medicatio n rash mild low 10/31/2022 7 RxNorm Manisha Bush [facility] 3 14:49:23 Medications Name Sig Start [...] mg-325 mg-40 mg tablet PRN for migraine 07/04 completed Not Available Not Available Not [...] spironola ctone 50 mg tablet on hold 07/04 completed Not Available Not Available Not [...] t Available Vitals Date Recorded Body height Respiratory rate Oxygen saturation Oxygen saturation in Arterial blood by Pulse oximetry Heart rate Systolic And Diastolic Provider Name and Address Organization Details Last Updated DateTime 5 162.56 cm 16 /min 97 % 97 % 100 /min 122/72 mm[Hg] Moy Rsoe [facility] 5 15:59:22 Date Recorded Body height Body mass index (BMI) Body weight Respiratory rate Heart rate Oxygen saturation Oxygen saturation in Arterial blood by Pulse oximetry Systolic And Diastolic Provider Name and Address Organization Details Last Updated DateTime 5 162.56 cm 27.8 kg/m2 71792.9 6 g 16 /min 115 /min 98 % 98 % 110/82 mm[Hg] Tamar Fatima [facility] 5 14:38:19 Date Recorded Body height Provider Name an d Address Organization Details Last Updated DateTime 02/20/2025 162.56 cm Laura Martinez [facility] in 02/20/2025 09:25:14 Date Recorded Body weight Body mass index (BMI) Body height Respiratory rate Heart rate Oxygen saturation Oxygen saturation in Arterial blood by Pulse oximetry Systolic And Diastolic Provider Name and Address Organization Details Last Updated DateTime 4 35260.8 5 g 28.2 kg/m2 162.56 cm 16 /min 109 /min 97 % 97 % 122/70 mm[Hg] Manisha Bush [facility] 4 09:45:43 Social History Question Answer Notes LastModified by Organizat ion Details LastModified Time Tobacco Smoking Status [facility]/12[facility]2017 12:06:27 How Much Tobacco Do You Chew? None Information not available 03/04/2020 Sunscreen Use? Yes [email or web address] Informatio n not available 05/13/2024 Tanning Bed Use No Informati on not available 05/13/2024 Are You Or Trying To Become ? No [email or web address] Information not available 05/13/2024 Are You On Control? Yes [email or web address] Information not available 05/13/2024 Are You ? No Information not available 05/13/2024 What Was The Date Of Your Most Recent Tobacco Screening? 09/25/2024 [email or web address] Information not available 09/25/2024 How Much Tobacco Do You Smoke? No Information not available 10/21/2019 How Many Years Have You Smoked Tobacco? 0 Information not available 10/21/2019 Have You Recently Traveled Abroad? No [email or web address] Information not available 10/31/2022 Sex: Unknown Functional Status Question Answer Note LastModified by Organizat ion Details LastModified Time Do you or have you ever used any other forms of tobacco or nicotine? No [email or web address] Information not available 05/13/2024 What is your level of alcohol consumption? None [email or web address] Information not available 02/12/2017 Do you or have you ever used smokeless tobacco? Never used smokeless tobacco Information not available 10/21/2019 Do you or have you ever used e-cigarettes or vape? Never used electronic cigarettes Information not available 10/21/2019 Mental Status None recorded. Family History Relationship Description Onset Age of this Age Resolved Age Notes LastModified by Organization Details LastModified Time Maternal Aunt Family history of breast cancer [email or web address] Not available 02/12 12:05:53 Maternal Aunt Disorder of thyroid gland [email or web address] Not available 02/12 12:06:15 Mother Disorder of thyroid gland [email or web address] Not available 02/12 12:06:15 Mother Arthritis [email or web address] Not availa ble 02/12/2017 12:06:22 Maternal Grandmother Disorder of thyroid gland Not available 02/12 12:06:15 Medical History Condition Response Anxiety Disorder Y Diabetes N Bleeding Disorder N Arthritis Y Emphysema N [...] virus, quadrivalent, preservative 0 completed Tawny Patel [facility] 10/21/2019 16:10:23 COVID-19, mRNA, LNP-S, PF, 100 mcg/0.5mL dose or 50 mcg/0.25mL dose 1 completed Zoraida Albrecht [facility] 01/28/2021 11:18:50 COVID-19, mRNA, LNP-S, PF, 100 mcg/0.5mL dose or 50 mcg/0.25mL dose 1 completed Zoraida Albrecht [facility] 01/28/2021 11:18:54 Past Encounters Encounter ID Performer Location Encounter Start Date Encounter Closed Date Diagnosis/Indication Diagnosis SNOMED-CT Code Diagnosis ICD10 Code Diagnosis Note [id number] BAMBI HINSON MD [facility] [address] [place] [address] 02/12/2017 11:21:32 02/12/2017 12:25:31 Psoriasis with arthropathy 43596329 L40.50 with H/O Poor compliance with the follow up and labs!!acti ve skin lesions, but joints are fairly stable.she needs to be more compliant with her follow up and labs so we can prescribe her the medication s.I want to resume the enbrel injections q weekly .maintain MTX at 10 mg weekly / folic acid a day . she will also use the clobetasol .obtain labs. [id number] BAMBI HINSON MD RHEUMATOL [address] [address] 07/04/2017 10:17:17 07/04/2017 11:21:32 Psoriasis with arthropathy 59443136 L40.50 she has more active skin breakouts. The joints are doing well.No systemic complaints . No interval infections . she can maintain the Enbrel injections 50 mg q weekly . she needs to up the dose of MTX to 15 mg weekly / folic acid 1 mg a day . she will also use the clobetasol as topical agent PRN. obtain labs. [id number] BAMBI HINSON MD RHEUMATOL [facility] [address] [address] 11/15/2017 10:58:54 11/15/2017 12:02:32 Psoriasis with arthropathy 14058994 L40.50 she has more active skin breakouts. The joints are doing well.No systemic complaints . No interval infections . she can maintain the Enbrel injections 50 mg q weekly .she needs to keep up the dose of MTX to 15 mg weekly / folic acid 1 mg a day . she will also use the clobetasol topical lotion as PRN. obtain labs.Impor tance of compliance review. Psoriasis of scalp 21997 8008 L40.9 will do the clobetasol shampoo. [id number] BAMBI HINSON MD RHEUMATOL [address] [address] 07/03/2018 10:04:40 07/08/2018 17:45:21 Psoriasis with arthropathy 80179090 L40.50 clinically , she has done very well. She has excellent musculoske letal examinatio n. No joint effusions or synovitis noted. Range of motion and strength is also normal. Further has a normal sensory examinatio n. she can maintain the Enbrel injections 50 mg q weekly .she needs to maintain MTX 15 mg weekly / folic acid 1 mg a day . for some skin activity, she will also use the clobetasol topical spray as PRN. obtain labs.Impor tance of compliance review.I suggested her to make sure that she follows with her lab studies every 3 months and I can still see her every 6 months. Psoriasis of scalp 36620 8008 L40.9 she has few scalp lesions for which I suggested her to use clobetasol shampoo. [id number] BAMBI HINSON MD RHEUMATOL [address] [address] [place] [address] 01/07/2019 10:12:05 01/09/2019 16:35:05 Psoriasis with arthropathy 25444928 L40.50 chronic psoriatic arthritis under excellent control. Both skin and joints are looking great. No evidence of disease activity noted. Systemic examinatiyola nash is also physiologi c. she can maintain the Enbrel injections 50 mg q weekly .she needs to maintain MTX 15 mg weekly / folic acid 1 mg a day . obtain labs. she will continue to do labs every 3 months and can still see me in 6 months. Importance of labs on the current medication s again stressed. Long-term drug therapy [id number] Z79.899 repeat TB test [id number] NOREEN SINCLAIR MD [facility] [address] [place] [address] 02/18/2019 15:05:14 02/21/2019 14:07:53 Chronic sinusitis 23933875 J32.9 Migraine 41673363 G43.90 9 [id number] NOREEN SINCLAIR MD [facility] [address] [place] [address] 03/05/2019 14:38:26 03/05/2019 15:07:25 Chronic sinusitis 92984616 J32.9 Migraine 58939081 G43.90 9 Hypertroph y of nasal turbinates 84603908 J34.3 Deviated nasal septum 12 5852160 J34.2 Lashaun bullosa 756169186 J34.89 [id number] NOREEN SINCLAIR MD SURGERY SCHEDULE [address] [place] [address] 04/10/2019 09:42:33 04/10/2019 09:47:26 [id number] NOREEN SINCLAIR MD [place] [facility] [address] [place] [address] 04/18/2019 15:51:14 04/23/2019 12:35:33 Chronic sinusitis 48254316 J32.9 Hypertroph y of nasal turbinates 80741172 J34.3 Lashaun bullosa 282302204 J34.89 Migraine 26705285 G43.90 9 Deviated nasal septum 12 7281878 J34.2 [id number] MD CHRISTIE SEWELL ENT [address] [place] [address] 05/20/2019 13:37:00 05/22/2019 11:25:51 Chronic sinusitis 08082558 J32.9 - left lashaun bullectomy /left maxillary antrostomy with removal of contents/b ilateral inferior turbinopla sty performed 04/10/2019 Hypertroph y of nasal turbinates 31602262 J34.3 - left lashaun bullectomy /left maxillary antrostomy with removal of contents/b ilateral inferior turbinopla sty performed 04/10/2019 Lashaun bullosa 890898955 J34.89 - left lashaun bullectomy /left maxillary antrostomy with removal of contents/b ilateral inferior turbinopla sty performed 04/10/2019 Migraine 79836128 G43.90 9 [id number] NOREEN SINCLAIR MD [place] [facility] CLOSED [address] [address] 08/26/2019 14:12:19 08/28/2019 15:29:53 Chronic sinusitis 39409654 J32.9 - left lashaun bullectomy /left maxillary antrostomy with removal of contents/b ilateral inferior turbinopla sty performed 04/10/2019 Chronic rhinitis 5653258 6 J31.0 [id number] BAMBI HINSON MD RHEUMATOL OGY [facility] [address] [place] [address] 08/28/2019 13:01:04 08/28/2019 13:35:46 Psoriasis with arthropathy [id number] L40.50 29-year-ol d female with chronic psoriasis and psoriatic arthritis. Clinically stable. Synovitis, none. Enthesitis , none. or dactylitis , none . Normal systemic examinatio n. Normal skin examinatio n. she can maintain the Enbrel injections 50 mg q weekly .she needs to maintain MTX 15 mg weekly / folic acid 1 mg a day . must do labs every 3 months and following with me every 6 months. Long-term drug therapy [id number] Z79.899 repeat TB test next visit [id number] BAMBI HINSON MD [facility] [address] [place] [address] 10/21/2019 16:02:05 10/21/2019 16:38:45 Psoriasis with arthropathy 74217726 L40.50 29-year-ol d female with chronic psoriasis and psoriatic arthritis. lately she has abdominal discomfort , extensive workup and evaluation through gastroente rology. No evidence of Crohn's or ulcerative colitis noted. However there are some concerns about the possibilit y of microscopi c colitis. The results of these biopsies are pending at the time of this dictation. she has some activity of the skin, rest of the examinatio n is stable. on account of her gastrointe stinal concerns, possibilit y of microscopi c colitis I think monoclonal antibody against TNF suggestion s or hematoma would be a better choice as compared to the fusion protein , Enbrel. we will contact her insurance to get the approval for Humira at 40 mg every weekly. I would also like to change her methotrexa te to subcutaneo us injection, Rasuvo 15 mg q weekly. She will continue with folic acid 1 mg a day. Labs from 10/02/2019 are up-to-date and stable. Long-term drug therapy [id number] Z79.899 repeat TB test on next visit [id number] BAMBI HINSON MD RHEUMATOL OGY [address] [place] [address] 03/04/2020 13:04:31 03/04/2020 13:28:56 Psoriasis with arthropathy 98747654 L40.50 29-year-ol d female with chronic psoriasis and psoriatic arthritis. unfortunat david, she is not doing well on Humira. As mentioned in the past, she did very well while on the Enbrel. 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 Further she remains on methotrexa te at 15 mg subcutaneo us once a week and folic acid once a day. She is thinking about getting and I would suggest to discontinu e the methotrexa te now and wait at least 4-6 weeks before considerin g any conception . Discontinu e Humira. Start Cimzia 200 mg every other week. We discussed the disease modifying medication s and . Methotrexa te, leflunomid e, CellCept are all contraindi cated. Biologic especially anti-TNF agents can be used during . Of all these agents, I would consider Cimzia to be the most suitable option with the least placental transfer to the fetus. It can also be used during . She does not want to be off the anti-TNF therapy on account of the severity of her skin as was the joint disease. repeat labs. Long-term drug therapy [id number] Z79.899 repeat TB test routine labs. [id number] BHARATI RAY MD [facility]ARD[facility] [address] [place] [address],[address] [place] [address] 05/31/2020 08:30:44 05/31/2020 09:16:01 Screening for cardiovascular system disease 014204546 Z13.6 The patient has no symptoms, EKG findings, or physical examinatio n signs to suggest hypertroph ic cardiomyop athy. An echocardio gram will be obtained. [id number] BAMBI HINSON MD RHEUMATOL OGY [facility] [address] [place] [address] 06/03/2020 08:13:20 06/08/2020 13:12:02 Psoriasis with arthropathy 35952530 L40.50 29-year-ol d female with chronic psoriasis and psoriatic arthritis. further, was diagnosed with microscopi c colitis. She's now on Humira 40 mg every 2 weeks. Tolerating it well. Joints and bowels are doing well. Skin has some activity on her scalp. interval diagnosis of polycystic ovary disease. continue with the current dose of Humira avoided convention al disease modifying drugs. As mentioned before, we have used Enbrel in the past. We have stopped the methotrexa te on account of her desire to get . repeat labs in August. Follow-up in August 2020. Long-term drug therapy 866251290 Z79.899 repeat TB test routine labs August 2020 Psoriasis of scalp 42237 8008 L40.9 she has few scalp lesions for which I suggested her to use clobetasol shampoo/sp ray. [id number] BHARATI RAY MD [facility] [address] [facility] [place] [address] 06/03/2020 08:29:00 06/03/2020 10:10:20 Electrocardiogram abnormal [id number] R94.31 [id number] BAMBI HINSON MD RHEUMATOL OGY [facility] [address] [place] [address] 10/27/2020 09:22:51 10/27/2020 10:01:02 Psoriasis with arthropathy 43302575 L40.50 30-year-ol d female with chronic psoriasis and psoriatic arthritis. she is also being treated for microscopi c colitis. She's now on Humira 40 mg every 7 days, tolerating it well. Joints and bowels are doing well. Skin has some activity on her scalp. she has gone back on the methotrexa te the last 2 weeks. Currently on 15 mg once a week. Folic acid 1 mg a day. She is also being treated for polycystic ovary disease. she has decided to quit teaching for now. She's we'll concentrat e on her health. She is suggested to continue with Humira at 40 mg every week to help both psoriatic arthritis, psoriasis as well as recently diagnosed colitis. Maintain methotrexa te at 15 mg once a week, folic acid 1 mg a day. She has decided to hold off on any at this time. She will maintain the lab studies every 3 months. She will contact me for any concerns otherwise I will see her in 6 months. Long-term drug therapy 443033044 Z79.899 repeat TB test routine labs. high risk medication s including anti-TNF therapy as well as methotrexa te. Risk for cytopenias infections . Labs repeated. Must do routine labs every 3 months. TB test needs to be done every 12 months Psoriasis of scalp 40707 8008 L40.9 she has few scalp lesions for which I suggested her to use clobetasol shampoo/sp ray. [id number] BAMBI HINSON MD RHEUMATOL O[facility] [address] [place] [address] 12/22/2020 14:02:06 12/22/2020 15:20:04 Psoriasis of scalp 730337137 L40.9 she has few scalp lesions for which I suggested her to use clobetasol shampoo/sp ray. Psoriasis with arthropathy 07227627 L40.50 30-year-ol d female with chronic psoriasis and psoriatic arthritis. she is also being treated for microscopi c colitis. Humira has helped both the inflammato ry bowel disease/co litis as well as psoriatic arthritis. Unfortunaberto hernandez she is now without Humira for 4 weeks. We have requested the insurance for approval of Humira at 40 mg once a week so total of 4 injections a month instead of 2 injections a month. This dose would help both her skin, joints as well as inflammato ry bowels. Twice a week dose has not helped her bowel disease in the past. I also want her to maintain methotrexa te 15 mg once a week and folic acid 1 mg a day. She is also being treated for polycystic ovary disease. she has decided to quit teaching for now. She's we'll concentrat e on her health. She has decided to hold off on any at this time. She will maintain the lab studies every 3 months. I will see her as planned. Chronic low back pain 27 3606368 M54.5 low back pain, clinically suggestive of lumbosacra l strain. Clinically , she does not have radiculopa thy or myelopathy . I suggested her to work on weight loss and we will start physical therapy, she would like to do the physical therapy in [facility]. At present no indication s for epidural pain management . Baseline x-ray lumbar spine AP and lateral view obtained. [id number] MD CHRISTIE SEWELL ENT [facility] CLOSED [address] [place] [address] 01/04/2021 13:45:27 01/04/2021 16:24:36 Chronic sinusitis 87104115 J32.9 - s/p left ESS and conchabull ectomy with turbinate reduction from 04/10/19. Nasal obstruction 345565 000 J34.89 - issues last couple months; left nare - secondary to left turbinate hypertroph y and sinusitis Hypertroph y of nasal turbinates 10789661 J34.3 - left lashaun bullectomy /left maxillary antrostomy with removal of contents/b ilateral inferior turbinopla sty performed 04/10/2019 Acute sinusitis 46759147 J01.90 Migraine 19510338 G43.90 9 [id number] NOREEN SINCLAIR MD [place] [facility] [address] [place] [address] 01/28/2021 11:01:45 01/28/2021 12:04:22 Nasal obstruction 177644695 J34.89 - Issues last couple months; left nare - Secondary to left turbinate hypertroph y and sinusitis Chronic sinusitis 305221 00 J32.9 - s/p left ESS and conchabull ectomy with turbinate reduction from 04/10/19. Hypertroph y of nasal turbinates 08903214 J34.3 - left lashaun bullectomy /left maxillary antrostomy with removal of contents/b ilateral inferior turbinopla sty performed 04/10/2019 Acute sinusitis 98659232 J01.90 Migraine 33631265 G43.90 9 [id number] BAMBI HINSON MD RHEUMATOL OGY [address] [place] [address] 03/02/2021 14:42:19 03/02/2021 16:46:14 Psoriasis of scalp 735134416 L40.9 chronic scalp lesions , use clobetasol shampoo/sp ray. Psoriasis with arthropathy 06765767 L40.50 30-year-ol d female with chronic psoriasis and psoriatic arthritis. she is also being treated for microscopi c colitis. the joints are doing fairly well. Unfortunat david bowels have remained symptomati c. She is not able to take him on a weekly basis, refused by the insurance She has stopped the methotrexa te as she is trying to get . For now suggested to continue with the current dose of Humira pending gastroente rology evaluation . She is also being treated for polycystic ovary disease. she has decided to quit teaching for now. She's we'll concentrat e on her health. Repeat the labs. Chronic low back pain 27 2385729 M54.5 chronic mechanical low back pain. X-rays 12/22/2020 reviewed. No acute findings. Continue physical therapy it has helped. Crohn's disease 67423438 K50.90 chronic Crohn's disease. Unfortunat david moeller. She is on Humira 40 mg every 2 weeks. Would benefit to increase the dose to every week. Refused by the insurance. Referred to lukas verdin for his suggestion and comments. Long-term current use of immunosuppressive drug 598736382 Z79.899 Chronic systemic immunosupp ressive therapy needs labs every 3 months. TB test every 12 months [id number] NOREEN SINCLAIR MD [place] [facility] [address] [place] [address] 03/16/2021 09:44:01 03/16/2021 10:30:55 Nasal obstruction 981496431 J34.89 - Issues last couple months; left nare - Secondary to left turbinate hypertroph y and sinusitis Chronic sinusitis 980119 00 J32.9 - s/p left ESS and conchabull ectomy with turbinate reduction from 04/10/19. Hypertroph y of nasal turbinates 71737263 J34.3 - left lashaun bullectomy /left maxillary antrostomy with removal of contents/b ilateral inferior turbinopla sty performed 04/10/2019 Migraine 69351851 G43.90 9 Polyp of nasal cavity 73 3007029 J33.0 - left sided Chronic rhinitis 2215570 6 J31.0 [id number] NEPTALI ABBOTT MD GASTRO SB [address] [facility], [address] [place] [address] 03/17/2021 13:08:42 03/18/2021 07:40:46 Crohn's disease 46126289 K50.90 Perianal C rohn's disease 749865459 K50.10 Abdominal pain 99647457 R10.9 Diarrhea 14380234 R19.7 Psoriatic arthritis 1563 59245 L40.50 [id number] FERNANDO ESPINOZA MD NEUROLOGY SB CLOSED [address] [place] [address] 03/30/2021 10:56:15 03/30/2021 12:23:11 Migraine 72921078 G43.672 [id number] NEPTALI ABBOTT MD SURGERY SCHEDULE [address] [place] [address] 03/31/2021 09:33:48 03/31/2021 09:34:33 [id number] FERNANDO ESPINOZA MD NEUROLOGY SB CLOS[address] [place] [address] 06/06/2021 10:00:36 06/06/2021 12:32:59 Migraine with aura 4832980 G43.109 Polycystic ovary syndrome 226057795 E28.2 Fertility problem 909913 06 N97.9 [id number] NEPTALI ABBOTT MD GASTRO SB [address] [facility], [address] [place] [address] 06/28/2021 07:43:44 07/27/2021 10:25:18 [id number] BAMBI HINSON MD RHEUMATOL OGY [facility] [address] [place] [address] 07/04/2021 13:35:59 07/04/2021 14:39:13 Psoriasis of scalp 535734545 L40.9 chronic scalp lesions , use clobetasol shampoo/sp ray. Psoriasis with arthropathy 19006704 L40.50 31-year-ol d female with chronic psoriasis and psoriatic arthritis. Doing much better. Humira is now 40 mg every weekly. Joints are asymptomat ic without any evidence of disease activity. She though has some lesions in her scalp from psoriasis. Off the methotrexa te as well as of the topical steroids as she is trying to be . Continue with the current dose of Humira and hold off on any oral systemic immunosupp ressive therapy. Maintain labs. As mentioned before, she has decided to quit teaching for now. She's we'll concentrat e on her health. Repeat the labs. Chronic low back pain 27 9586499 M54.51 chronic mechanical low back pain. X-rays 12/22/2020 reviewed. No acute findings. She has completed physical therapy with good results. Maintain weight loss program along with core strengthen ing exercises Crohn's disease 64442991 K50.90 chronic Crohn's disease.No te by gastroente rology. The increase in Humira dose to 40 mg every weekly has greatly helped both her joints as well as the GI tract. Long-term current use of immunosuppressive drug 887964315 Z79.899 Chronic systemic immunosupp ressive therapy needs labs every 3 months. TB test every 12 months, next TB Test 10/2021. [id number] NEPTALI ABBOTT MD GASTRO SB [address] [facility], [place] [address] 07/27/2021 12:28:36 07/27/2021 14:08:18 Crohn's disease of large bowel 0438844 K50.10 cont humiradoin g qow right now and doing well rtc 6 mos [id number] NEPTALI ABBOTT MD GASTRO SB [address] [facility], [place] [address] 09/22/2021 13:50:45 09/22/2021 14:47:47 Crohn's disease of large bowel 9523387 K50.10 cont humiradoin g qow right now and doing well rtc vember Normal 7633119 2 Z34.90 [id number] BAMBI HINSON MD RHEUMATOL OGY [address] [place] [address] 12/26/2021 13:10:21 12/27/2021 11:22:34 Psoriasis of scalp 019765639 L40.9 She is doing a lot better. No active scalp lesion noted. She will continue with the clobetasol shampoo or spray as needed. Psoriasis with arthropathy 39637039 L40.50 31-year-ol d female with chronic psoriasis and psoriatic arthritis. Has had a very active disease, but has done very well on a monotherap y with Humira. She is 27 weeks . Followed by [facility]. Coming along very well. No complicati ons. We discussed the anti-TNF therapy, and breast-fee ding. As she has had a very active disease and is doing much better on the Humira, we decided to continue with the current dose of anti-TNF therapy. Of course, she will keep me posted on her progress.S he will return to our office post . In case of any concerns she knows to call me. Chronic low back pain 27 5400287 M54.51 chronic mechanical low back pain.She is doing much better. No radiculopa thy myelopathy noted. Maintain the current treatment plans. Crohn's disease 51788985 K50.90 In terms of Crohn's disease, followed by gastroente rology. Coming along well the Humira has also helped the Crohn's. Maintain the current treatment plans and follow with lukas verdin as planned. Long-term current use of immunosuppressive drug 325293739 Z79.899 Chronic systemic immunosupp ressive therapy needs labs every 3 months. TB test every 12 months, next TB Test today. [id number] BAMBI HINSON MD RHEUMATOL OGY [address] [place] [address] 04/10/2022 13:48:50 04/10/2022 16:07:26 Psoriasis of scalp 867852747 L40.9 She is more symptomati c. We have added the methotrexa te to control the disease in combinatio n with the Humira. Maintain the topical agents with clobetasol . Psoriasis with arthropathy 49071280 L40.50 31-year-ol d female with chronic psoriasis and psoriatic arthritis. She is 4 weeks . Had a difficult with preeclamps ia. Baby had to be in the NICU. She is now fully recovered. The baby is back home. Doing well. Skin demonstrat e active disease. Joints are stable. Suggested to continue with Humira at 40 mg every 2 weeks. Restart methotrexa te 10 mg once a week with titration to 15 mg once a week in combinatio n with folic acid once a day. She is not breast-fee ding. Follow-up on the labs. See me in 3 months. Chronic low back pain 27 5574033 M54.51 chronic mechanical low back pain.She is doing much better. No radiculopa thy myelopathy noted. Maintain the current treatment plans. Maintain weight loss program. Crohn's disease 68554010 K50.90 In terms of Crohn's disease, followed by lukas verdin. Chronic disease. She has good days and bad days. Does not have any recent bleeding. Followed by lukas verdin.Sug gested to maintain the Humira and add methotrexa te as detailed above.She knows to avoid the NSAIDs. Long-term current use of immunosuppressive drug 979284726 Z79.899 Lab studies every 3 months. TB test up to date December 2021. Repeat in December 2022. [id number] NEPTALI ABBOTT MD GASTRO SB [address] [facility], [address] [place] [address] 06/22/2022 12:44:02 06/23/2022 09:00:19 Diarrhea 14261517 R19.7 Crohn's disease 17261260 K50.90 [id number] NEPTALI ABBOTT MD SURGERY SCHEDULE [address] [place] [address] 10/23/2022 07:29:23 10/23/2022 07:30:55 [id number] BAMBI HINSON MD RHEUMATOL OGY SB [address] [place] [address] 10/31/2022 14:37:50 11/02/2022 04:41:53 Psoriasis of scalp 918777518 L40.9 Some activity on the scalp and the forehead. Suggested to use clobetasol topical spray and on the face use Elidel topical cream. Refills were given Psoriasis with arthropathy 21393402 L40.50 32-year-ol d female with chronic psoriasis and psoriatic arthritis. Coming along well. Her boys now 6 month old. She is doing very well in general. Joints are stable. Minimal skin breakout on the scalp and forehead. Otherwise stable. Stable cardiopulm onary exam. Suggested to continue with Humira at 40 mg every 2 weeks.Main tain methotrexa te 15 mg once a week along with folic acid daily. Refills were given. Labs repeated. Chronic low back pain 27 5435565 M54.51 chronic mechanical low back pain.She is doing much better. No radiculopa thy myelopathy noted. Maintain the current treatment plans. Maintain weight loss program. Crohn's disease 72791499 K50.90 In terms of Crohn's disease, followed by lukas verdin. Chronic disease. She has good days and bad days. Does not have any recent bleeding. Followed by lukas verdin.Sug gested to maintain the Humira /methotrex ate as detailed above.She knows to avoid the NSAIDs. Long-term current use of immunosuppressive drug 201952814 Z79.899 Lab studies every 3 months. Tuberculos is screening 883626747 Z11.7 last TB in Dec, 2021, repeat today [id number] FERNANDO ESPINOZA MD NEUROLOGY SB CLOSED [address] [place] [address] 10/31/2022 14:40:26 11/06/2022 10:21:15 [id number] NEPTALI ABBOTT MD GASTRO SB [address] [place] [address] 11/02/2022 13:40:10 11/03/2022 04:21:18 Crohn's disease of small intestine 31637404 K50.90 humira drug level 4.4 - consider increase to weekly Diarrhea 22935629 R19.7 [id number] NEPTALI ABBOTT MD GASTRO SB [address] [place] [address] 1 11/30/2022 14:50:33 11/30/2022 16:03:05 Crohn's disease of small intestine 24673932 K50.90 she is doing wellasympt omaticcont humira q 2 weeksrtc 1 yrrecent symptoms were from kidney stones [id number] FERNANDO ESPINOZA MD NEUROLOGY SB CLOSED [address] [place] [address] 1 12/05/2022 15:58:19 12/06/2022 10:51:39 Migraine 11489033 G43.909 Long-term current use of drug therapy 551867358 Z79.899 [id number] JOSSELINE REDDY MD [facility]THOPEDI [facility] CLOSED [address] [address] 01/22/2023 13:45:34 01/22/2023 15:15:06 Scapulalgia 61930994 M25.519 Impingemen t syndrome of left shoulder region 6779124094 94490 M75.42 [id number] BAMBI JEANNE HINSON MD RHEUMATOL OGY SB [address] [place] [address] 03/24/2024 09:36:36 03/25/2024 04:08:58 Psoriasis of scalp 430374201 L40.9 Some activity on the scalp and the forehead. Suggested to use clobetasol topical spray and on the face use Elidel topical cream. Refills were given Psoriasis with arthropathy 10011578 L40.50 33-year-ol d female with chronic psoriasis and psoriatic arthritis. Symptomati c. Her boys now 2yrs old. Lately seems to be hurting both in her bowels as well as joints. Some skin breakouts. She is on Humira 40 mg q. weekly and methotrexa te 15 mg once a week. Methotrexa te started February 2016. Humira start date October 2019. She has failed Cimzia in the past.Katerine gandara has failed Enbrel in the past before the diagnosis of Crohn's.Of f and on the steroids. I would suggest to consider initiating Rinvoq extended release, to cover both inflammato ry bowel and psoriatic arthritis. Typically for inflammato ry bowel disease she would need a loading dose of 45 mg for the next 6 weeks followed by maintenanc e dose anywhere between 30 to 15 mg once a day. For the arthritis, we do not increase the Rinvoq dose about 15 mg once a day. I will forward my recommenda tions to her gastroente rologist to consider initiating the Rinvoq extended release. Other options include interleuki n blockers such as Skyrizi and Stelara or IV Remicade infusion or Simponi which I would avoid after failing several anti-TNF therapies in the past. Complex medical decision making. Chronic low back pain 27 5632532 M54.51 chronic mechanical low back pain.Stabl e at this time No radiculopa thy myelopathy noted. Maintain the current treatment plans. Maintain weight loss program. Crohn's disease 37047416 K50.90 In terms of Crohn's disease, followed by gastroente leandraogy.Dr. Leslie Cook gastroente rology [facility]. Last evaluation 01/22/2024. At that time she was doing quite well with 2-4 bowel movements without any blood. Lately she is complainin g of more discomfort along with more frequent bowel movements. Further she has more joint pains. Based on her overlap disease, Crohn's along with psoriatic arthritis and psoriasis our next option would be the Devan inhibitor Rinvoq extended release. The other anti-TNF therapy such as IV Remicade or Simponi would be logistical ly difficult. Interleuki n blockers such as Stelara or Skyrizi would be an option but because of the joint activity, the Devan inhibitor would be a better option as it has excellent response in controllin g the arthritis beside the inflammato ry bowel disease. I would like opinion of Dr. Leslie Cook at [facility]. As the dose for Rinvoq extended release is higher in inflammato ry bowel disease 45 mg once a day as a loading dose for 6 to 8 weeks, followed by maintenanc e dose anywhere between 15 to 30 mg a day. I would like gastroente rology to take the lead and roberta g the medication . Of course I will be happy to answer any question if needed. She knows to avoid the NSAIDs. Long-term current use of immunosuppressive drug 019848639 Z79.899 Lab studies every 3 months.01/11 09/05 labs reviewed.C RP 4.1CBC normalKidn ey normalSuga r normalLive r normalCa borderline low 8.8 Repeat labs today. Tuberculos is screening 002518231 Z11.7 last TB in Dec, 2021, repeat today [id number] JASON ALBARRAN [facility] [address] [place] [address] 05/13/2024 10:28:25 05/13/2024 11:31:12 Multiple benign melanocytic nevi 780809911 D22.5 L81.4 D18.01 L82.1 The benign nature of keratoses and lentigines was discussed with the patient. Sun protection with SPF 30 broad spectrum sunscreen and protective gear discussed. Look for physical debbie sunscreens with at least SPF 30 containing zinc oxide or titanium dioxide as active ingredient . Recommend monthly self examinatio ns and yearly full skin examinatio n with a dermatolog y provider. Recommend yearly eye exam. Recommend OTC Vitamin D supplement . Patient instructed to call if any suspicious lesions are noted. Acne vulgaris 58996531 L 70.0 The nature of the diagnosis was discussed. Pt is on Rx Rinvoq for Crohn's disease. Rx prescribed for Rx Tretinoin 0.025% topical cream QHS. SE reviewed.R x prescribed for Rx Clindamyci n 1% lotion QAM on chest and back. SE reviewed. If tretinoin makes rosacea worse, pt to call. Will prescribe 15% azelaic acid instead. 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 Measuremen t takenCont to monitor for any changes. [id number] BAMBI HINSON MD RHEUMATOL OGY [address] [place] [address] 09/25/2024 15:52:31 09/27/2024 04:43:24 Psoriasis of scalp [id number] L40.9 Minimal activity although much improved on Skyrizi She can maintain clobetasol topical spray and on the face use Elidel topical cream. Refills were given Psoriasis with arthropathy [id number] L40.50 34-year-ol d female with chronic psoriasis and psoriatic arthritis. Stable. Does not have any active skin disease and the joints are doing much better on Skyrizi infusion therapy. The Skyrizi is followed by gastrochelly mobleyogy on account of Crohn's. We have stopped the Rinvoq extended release. She has also stopped the methotrexa te as of April 2024. She has failed Cimzia in the past.Katerine gandara has failed Enbrel in the past before the diagnosis of Crohn's.Fa iled Rinvoq.She is off methotrexa te since April 2024.Off and on the steroids I suggested her to stay on monotherap y with IV skyrizi as she is stable. Complex medical decision making. Chronic low back pain 27 [id number] M54.51 chronic mechanical low back pain.Stabl e at this time No radiculopa thy myelopathy noted. Maintain the current treatment plans. Maintain weight loss program. Crohn's disease [id number] K50.90 In terms of Crohn's disease, followed by lukas verdin.Dr. Leslie ledezmay [facility]. He is now on Skyrizi infusion. She has done first infusion and has noticed improvemen t in her skin as well as in her bowel symptoms. She will continue with the maintenanc e Skyrizi under the care of lukas verdin. She knows to avoid the NSAIDs. Long-term current use of immunosuppressive drug [id number] Z79.899 Lab studies every 3 months.01/11 09/05 labs reviewed.C RP 4.1CBC normalKidn ey normalSuga r normalLive r normalCa borderline low 8.8Labs from March 2024 reviewed with normal ESR, normal CRP and normal TB test. Tuberculos is screening [id number] Z11.7 Lab studies 03/24/2024 reviewed and fairly stable. As she is now off the Rinvoq and is followed by gastroente rology for Skyrizi she will continue follow-up with GI for labs on Skyrizi. [id number] NEPTALI ABBOTT MD GASTRO [address] [facility], [address] [place] [address] 01/28/2025 14:30:22 01/29/2025 09:50:03 Crohn's disease of small intestine [id number] K50.00 humira helpedrinv oq did notskyrizi not helping the [...] to something that would cover the psoriasis betterrt 3 mos Psoriatic arthritis [id number] L40.50 [id number] PRES ROCKY CHAVIRA PA-C NEUROSURG [address] [place] [address] 02/20/2025 09:01:15 02/25/2025 06:42:25 Cervical spondylosis [id number] M47.812 Health Concerns Section Related Observation LastModified by Organization Detai ls LastModified Time None Recorded Concern Status LastModified by Organization Details LastModified Time None Recorded Advance Directives Directive None Recorded Payers Insurance Date Sequence Insurance Name Policy Number Policy Gregg Covered Member ID Gregg Member ID Guarantor Name 07/15/2023 PAYMENT PLAN Blanca Munoz 11/15/2021 1 [place] [id number] Blanca Marlo Jens [id number] Blanca Munoz 09/26/2021 PAYMENT PLAN Blanca Marlo Jens 06/23/2021 1 [place] [id number] Blanca Marlo Jens [id number] Blanca Munoz 02/23/2025 1 [employer] [id number] Blanca Munoz [id number] Blanca Munoz 01/22/2024 1 [employer] [id number] Blanca Munoz [id number] Blanca Munoz 06/03/2021 1 [place] [id number] Gerson Munoz [id number] Blanca Munoz 03/30/2021 1 [place] [id number] Blanca Munoz [id number] Blanca Munoz 12/26/2021 1 [employer] GENEVIEVE GILA LUCAS (INDEMNITY) [id number] Blanca Munoz [id number] Blanca Munoz 06/06/2021 1 *SELF PAY* Robe Munoz 08/26/2023 PAYMENT PLAN Blanca Munoz Notes Date Note Type Note Provider Name and Address Organization Details Recorded Time 03/24/2024 text/html 33-year-old femmoncho le with psoriasis and psoriatic arthritis.Last in the clinic on 10/31/22. Since last visit she is complaining of more joint pains as well as abdominal pain and discomfort. She is followed by gastroenterology at [facility]. Her last GI evaluation was on 01/22/2024. Her Humira is at 40 mg q. weekly. She is also on methotrexate 15 mg once a week along with folic acid once a day. No interval infection. No fevers or chills. Her son is now 2yrs old. BAMBI HINSON MD [address] [place] [address], [phone], [facility] 03/24/2024 13:08:32 05/13/2024 text/html FBSElast seen 04/2020no hxreports: Pt would like to know if she could get some tretinoin. JASON ALBARRAN [address] [place] [address], [phone], [facility] 05/13/2024 13:09:52 09/25/2024 text/html 34-year-old fema le with psoriasis and psoriatic arthritis.Last in the clinic on 03/24/24. She is followed by gastroenterology at [facility]. She was not able to benefit from the Rinvoq especially in terms of GI. Has started Skyrizi and has done 1 infusion. It has made a difference in his skin as well as bowel symptoms. She is going to go for the second loading dose in the coming weeks after which she will maintain Skyrizi infusion every 2 months. She has stopped the Rinvoq extended release. She has also stopped the methotrexate about 6 months ago She has returned to work and works at [employer]. BAMBI HINSON MD [address] [place] [address], [phone], [facility] 09/26/2024 08:06:48 01/28/2025 text/html - The patient is a 34-year-old female presenting with management of crohns - also has psoriasis - Previously on Humira, lost efficacy after ten years. - Transitioned to marketplace insurance, reduced Humira dosing frequency. - Initiated Rinvoq: ineffective, side effects include mouth ulcers and cystic acne. - On Skyrizi since August: inadequate control of psoriatic arthritis and psoriasis. - Methotrexate reintroduced: suboptimal response. - Insurance now better accommodates biologic therapies. NEPTALI ABBOTT MD [facility] [place], [phone], [facility] 02/03/2025 16:12:34 02/20/2025 text/html Blanca Munoz is a 34-year-old who presents to the clinic to discuss cervical pain is been present since October 2024, with MRI cervical through [facility] on 01/17/2025. Patient reports posterior cervical [...] of her lumbar spine this month through [facility]. Patient underwent formal cervical physical therapy but PT decided to stop working with her until she was evaluated by our office. Patient received a steroid injection at C[facility] with [facility] pain management. Patient states this injection did not alleviate her symptoms, even temporarily. Patient was given neuropathic pain cream also has not significantly helped. Patient has been prescribed Percocet 7.5 and states this does alleviate her pain some. Patient has never tried a neuromodulating medication. Patient has never a nerve study performed. Patient is not on any blood thinners. PA and physician visit. JASON CARLOS-C [address] [place], [phone], [facility] 02/24/2025 09:17:58 OBGyn Episode No OBEpisode recorded.
--- OUTSIDE RECORDS SUMMARY | 2025-02-25 14:14 | XMS_ITS | Encounter Summary ---
Author Organization Healthcare Address [address] [place] [address] Care Team Providers Care Recreation Worker Name Role Phone Teodoro Huynh MD Primary Care Provider [phone] Encounter Details Date Type Department Care Team (Late st Contact Info) Description 10/28/2024 Results Follow-Up [facility] [address] [place] [address] Leslie Cook L, DO [address] [place] [address] Social History Tobacco Use Types Packs/Day Years [...] at all 10/28/2024 11:44 AM Betty Chan a Feeling down, depressed, or hopeless Not at [...] Telephone Encounter - Melissa Groves RN - 10/30/2024 2:23 PM EDT Confirmed with Dr. Cook she has [employer] message information from pt. documented in this encounter Plan of Treatment Not on file documented as of this encounter Visit Diagnoses Not on filedocumented in this encounter Additional Health Concerns Assessment Noted Time PHQ-9 Depression Total Score: 3 10/29/19 11:44 AM EDT A fall risk assessment has been complete d for the patient 10/28/2024 11:44 AM EDT A Body Mass Index follow-up plan has been documented for the patient 11/04/2024 2:25 PM EDT documented as of this encounter Care Teams Recreation Worker Relationship Specialty Start Date End Date Teodoro Huynh MD PCP - General 06/27/23 documented as of this encounter
--- OUTSIDE RECORDS SUMMARY | 2025-02-25 14:15 | XMS_ITS | Encounter Summary ---
Author Organization [employer] ([place], [place], [place], [place]) Address [address] [place] [address] Care Team Providers Care Graphic Specialist Name Role Phone Terry Huynh MD Primary Care Provider [phone] Encounter Details Date Type Department Care Team (Late st Contact Info) Description 08/12/2019 Transcribed Document [facility] [place] [facility] [address] [place] [address] ProviderYogi MD [address] [place] [address] Social History Tobacco Use Types Packs/Day Years Used Date Smoking Tobacco: Never Assessed Comments Unknown Sex and Gender Information Value Date Recorded Sex Assigned at Not on file Legal Sex Female 6:49 PM CDT Gender Identity Not on file Sexual Orientation Not on file documented as of this encounter Miscellaneous Notes * Cerner Conversion Note - Yogi ProviderMD - 08/12/2019 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 [place] [id number] BLANCA MUNOZ :1990 Visit Time:08/12/2019 What to do next Your Diagnosis Other specified diseases of gallbladder, Other specified diseases of gallbladder Instructions From Your Care Team Diet after Discharge: clear liquid diet today, advance to your normal diet as tolerated tomorrow , Do not drink any alcoholic beverages, Drink at least 8-10 glasses of water per day Activity after Discharge: As tolerated, Rest and relax today, No strenuous activity, walk 3-5 times per day or more as tolerated Lifting Restrictions: _no heavy lifting over 10 pounds until cleared by the surgeon Driving after Discharge: Do not drive until 24 hours after no longer taking pain medications May Return to Work/School: in one week with light duty Showering/Bathing: May shower in 24 hours, No tub bathing, soaking or swimming Notify Provider of: temperature 101 or greater, redness, swelling, excessive bleeding, difficulty urinating, pus drainage, nausea/vomiting, if the pain is not relieved Wound/Incision Care after Discharge: Keep operative site/wound site clean and dry Use pillow to splint abdomen when moving or coughing to help with pain control. Use ice pack on first 72 hours, 30 min on 30 min off. Follow-Up Appointments Follow Up with ANGEL LAURENT When Within 1 week Comments Appointment has been made Where: [address] [id number]- Medications What How Much When Instructions Next Dose acetaminophen-hydrocodone (acetaminophen-HYDROcodone 325 mg-5 mg oral tablet) 1-2 tabs Oral Every 6 Hours as needed for for pain Printed Prescription promethazine (promethazine 25 mg oral tablet) 1 Tablet(s) Oral Every 8 Hours as needed for Nausea Printed Prescription cetirizine (ZyrTEC) 10 Milligram(s) Oral Every Day escitalopram (Lexapro) 20 Milligram(s) Oral Every Day etanercept (Enbrel) SubCutaneous Weekly sunday folic acid 1 Milligram(s) Oral Every Day galcanezumab (Emgality Prefilled Pen 120 mg/ mL subcutaneous solution) 120 Milligram(s) SubCutaneous Once a month on the of the month methotrexate 10 Milligram(s) Oral Sunday omeprazole 40 Milligram(s) Oral Every Day raNITIdine 150 Milligram(s) Oral Two Times A Day SUMAtriptan (Imitrex) 50 Milligram(s) Oral Every 2 Hours as needed for as needed for migraine headache traZODone 50 Milligram(s) Oral At Bedtime Take your medications faithfully. Do NOT skip medication. Do NOT stop taking medications without the direction of a physician. Carry a list of your medications with you at all times, and take this medication list with you to your first follow up visit. Report any side effects. Avoid herbal remedies unless discussed with your physician. As part of your treatment plan, your physician may have prescribed a limited course of a controlled substance. This medication may be given to help people with moderate or severe pain or for other medical conditions, but there are risks involved with treatment. Common side effects may include nausea, constipation, drowsiness, sweating, itching, dry mouth, and rash. More serious side effects may include cognitive and motor impairment, like problems with thinking, concentrating, alertness, and movement (e.g. slowed reflexes), and driving and operating heavy machinery can be dangerous. It is important for you to talk to your physician if you have these side effects or questions. These controlled substances can produce physical dependence and be habit-forming if taken for an extended period of time, which means that the body has gotten used to them and may experience withdrawal symptoms if they are abruptly stopped. Withdrawal symptoms can include runny nose, sweating, goose bumps, diarrhea, abdominal cramping, rapid heartbeat, difficulty sleeping, and nervousness. Please dispose of unused and medications per pharmacy guidance. Education Materials General Anesthesia, Adult, Care After This sheet gives you information about how to care for yourself after your procedure. Your health care provider may also give you more specific instructions. If you have problems or questions, contact your health care provider. What can I expect after the procedure? After the procedure, the following side effects are common: ??? Pain or discomfort at the IV site. ??? Nausea. ??? Vomiting. ??? Sore throat. ??? Trouble concentrating. ??? Feeling cold or chills. ??? Weak or tired. ??? Sleepiness and fatigue. ??? Soreness and body aches. These side effects can affect parts of the body that were not involved in surgery. Follow these instructions at home: For at least 24 hours after the procedure: ??? Have a responsible adult stay with you. It is important to have someone help care for you until you are awake and alert. ??? Rest as needed. ??? Do not: ? Participate in activities in which you could fall or become injured. ? Drive. ? Use heavy machinery. ? Drink alcohol. ? Take sleeping pills or medicines that cause drowsiness. ? Make important decisions or sign legal documents. ? Take care of children on your own. Eating and drinking ??? Follow any instructions from your health care provider about eating or drinking restrictions. ??? When you feel hungry, start by eating small amounts of foods that are soft and easy to digest (bland), such as toast. Gradually return to your regular diet. ??? Drink enough fluid to keep your urine pale yellow. ??? If you vomit, rehydrate by drinking water, juice, or clear broth. General instructions ??? If you have sleep apnea, surgery and certain medicines can increase your risk for breathing problems. Follow instructions from your health care provider about wearing your sleep device: ? Anytime you are sleeping, including during daytime naps. ? While taking prescription pain medicines, sleeping medicines, or medicines that make you drowsy. ??? Return to your normal activities as told by your health care provider. Ask your health care provider what activities are safe for you. ??? Take hzme-djb-opralgt and prescription medicines only as told by your health care provider. ??? If you smoke, do not smoke without supervision. ??? Keep all follow-up visits as told by your health care provider. This is important. Contact a health care provider if: ??? You have nausea or vomiting that does not get better with medicine. ??? You cannot eat or drink without vomiting. ??? You have pain that does not get better with medicine. ??? You are unable to pass urine. ??? You develop a skin rash. ??? You have a fever. ??? You have redness around your IV site that gets worse. Get help right away if: ??? You have difficulty breathing. ??? You have chest pain. ??? You have blood in your urine or stool, or you vomit blood. Summary ??? After the procedure, it is common to have a sore throat or nausea. It is also common to feel tired. ??? Have a responsible adult stay with you for the first 24 hours after general anesthesia. It is important to have someone help care for you until you are awake and alert. ??? When you feel hungry, start by eating small amounts of foods that are soft and easy to digest (bland), such as toast. Gradually return to your regular diet. ??? Drink enough fluid to keep your urine pale yellow. ??? Return to your normal activities as told by your health care provider. Ask your health care provider what activities are safe for you. This information is not intended to replace advice given to you by your health care provider. Make sure you discuss any questions you have with your health care provider. Document Released: 11/05/2001 Document Revised: 03/15/2018 Document Reviewed: 03/15/2018 [employer] Interactive Patient Education ?? 2019 [employer]. Laparoscopic Cholecystectomy, Care After This sheet gives you information about how to care for yourself after your procedure. Your health care provider may also give you more specific instructions. If you have problems or questions, contact your health care provider. What can I expect after the procedure? After the procedure, it is common to have: ??? Pain at your incision sites. You will be given medicines to control this pain. ??? Mild nausea or vomiting. ??? Bloating and possible shoulder pain from the air-like gas that was used during the procedure. Follow these instructions at home: Incision care ??? Follow instructions from your health care provider about how to take care of your incisions. Make sure you: ? Wash your hands with soap and water before you change your bandage (dressing). If soap and water are not available, use hand doughnut fryer. ? Change your dressing as told by your health care provider. ? Leave stitches (sutures), skin glue, or adhesive strips in place. These skin closures may need to be in place for 2 weeks or longer. If adhesive strip edges start to loosen and curl up, you may trim the loose edges. Do not remove adhesive strips completely unless your health care provider tells you to do that. ??? Do not take baths, swim, or use a hot tub until your health care provider approves. Ask your health care provider if you can take showers. You may only be allowed to take sponge baths for bathing. ??? Check your incision area every day for signs of infection. Check for: ? More redness, swelling, or pain. ? More fluid or blood. ? Warmth. ? Pus or a bad smell. Activity ??? Do not drive or use heavy machinery while taking prescription pain medicine. ??? Do not lift anything that is heavier than 10 lb (4.5 kg) until your health care provider approves. ??? Do not play contact sports until your health care provider approves. ??? Do not drive for 24 hours if you were given a medicine to help you relax (sedative). ??? Rest as needed. Do not return to work or school until your health care provider approves. General instructions ??? Take pxhv-qal-dqbnwqm and prescription medicines only as told by your health care provider. ??? To prevent or treat constipation while you are taking prescription pain medicine, your health care provider may recommend that you: ? Drink enough fluid to keep your urine clear or pale yellow. ? Take ujud-bza-wsoidqw or prescription medicines. ? Eat foods that are high in fiber, such as fresh fruits and vegetables, whole grains, and beans. ? Limit foods that are high in fat and processed sugars, such as fried and sweet foods. Contact a health care provider if: ??? You develop a rash. ??? You have more redness, swelling, or pain around your incisions. ??? You have more fluid or blood coming from your incisions. ??? Your incisions feel warm to the touch. ??? You have pus or a bad smell coming from your incisions. ??? You have a fever. ??? One or more of your incisions breaks open. Get help right away if: ??? You have trouble breathing. ??? You have chest pain. ??? You have increasing pain in your shoulders. ??? You faint or feel dizzy when you stand. ??? You have severe pain in your abdomen. ??? You have nausea or vomiting that lasts for more than one day. ??? You have leg pain. This information is not intended to replace advice given to you by your health care provider. Make sure you discuss any questions you have with your health care provider. Document Released: 07/30/2006 Document Revised: 02/17/2017 Document Reviewed: 01/15/2017 [employer] Interactive Patient Education ?? 2019 [employer] acetaminophen and hydrocodone (a SEET a MIN oh fen and katie droe KOE done) Hycet, Lorcet, [place], Verdrocet, Vicodin, Xodol, Zamicet What is the most important information I should know about acetaminophen and hydrocodone? MISUSE OF OPIOID MEDICINE CAN CAUSE ADDICTION, OVERDOSE, OR . Keep the medication in a place where others cannot get to it. An overdose of acetaminophen can damage your liver or cause . Call your doctor at once if you have pain in your upper stomach, loss of appetite, dark urine, or jaundice (yellowing of your skin or eyes). Taking opioid medicine during may cause life-threatening withdrawal symptoms in the . Fatal side effects can occur if you use opioid medicine with alcohol, or with other drugs that cause drowsiness or slow your breathing. Stop taking this medicine and call your doctor right away if you have skin redness or a rash that spreads and causes blistering and peeling. What is acetaminophen and hydrocodone? Hydrocodone is an opioid pain medication, sometimes called a narcotic. Acetaminophen is a less potent pain reliever that increases the effects of hydrocodone. Acetaminophen and hydrocodone is a combination medicine used to relieve moderate to severe pain. Acetaminophen and hydrocodone may also be used for purposes not listed in this medication guide. What should I discuss with my healthcare provider before taking acetaminophen and hydrocodone? You should not use this medicine if you are allergic to acetaminophen or hydrocodone, or if you have: ?? severe asthma or breathing problems; or ?? a blockage in your stomach or intestines. Tell your doctor if you have ever had: ?? liver disease; ?? a drug or alcohol addiction; ?? kidney disease; ?? a head injury or seizures; ?? urination problems; or ?? problems with your thyroid, pancreas, or gallbladder. If you use opioid medicine while you are , your baby could become dependent on the drug. This can cause life-threatening withdrawal symptoms in the baby after it is born. Babies born dependent on opioids may need medical treatment for several weeks. Do not breast-feed. This medicine can pass into breast milk and cause drowsiness, breathing problems, or in a nursing baby. How should I take acetaminophen and hydrocodone? Follow all directions on your prescription label. Never take this medicine in larger amounts, or for longer than prescribed. An overdose can damage your liver or cause . Tell your doctor if the medicine seems to stop working as well in relieving your pain. Always check your bottle to make sure you have received the correct pills (same brand and type) of medicine prescribed by your doctor. Never share this medicine with another person, especially someone with a history of drug abuse or addiction. MISUSE CAN CAUSE ADDICTION, OVERDOSE, OR . Keep the medicine in a place where others cannot get to it. Selling or giving away acetaminophen and hydrocodone is against the law. Measure liquid medicine carefully. Use the dosing syringe provided, or use a medicine dose-measuring device (not a kitchen spoon). If you need surgery or medical tests, tell the doctor ahead of time that you are using this medicine. You should not stop using this medicine suddenly. Follow your doctor's instructions about tapering your dose. Store at room temperature away from moisture and heat. Keep track of your medicine. You should be aware if anyone is using it improperly or without a prescription. Do not keep leftover opioid medication. Just one dose can cause in someone using this medicine accidentally or improperly. Ask your pharmacist where to locate a drug take-back disposal program. If there is no take-back program, flush the unused medicine down the toilet. What happens if I miss a dose? Since this medicine is used for pain, you are not likely to miss a dose. Skip any missed dose if it is almost time for your next dose. Do not use two doses at one time. What happens if I overdose? Seek emergency medical attention or call the Poison Help line at . An overdose of acetaminophen and hydrocodone can be fatal. The first signs of an acetaminophen overdose include loss of appetite, nausea, vomiting, stomach pain, sweating, and confusion or weakness. Later symptoms may include pain in your upper stomach, dark urine, and yellowing of your skin or the whites of your eyes. Overdose can also cause severe muscle weakness, pinpoint pupils, very slow breathing, extreme drowsiness, or coma. What should I avoid while taking acetaminophen and hydrocodone? Avoid driving or operating machinery until you know how this medicine will affect you. Dizziness or drowsiness can cause falls, accidents, or severe injuries. Do not drink alcohol. Dangerous side effects or could occur. Ask a doctor or pharmacist before using any other medicine that may contain acetaminophen (sometimes abbreviated as APAP). Taking certain medications together can lead to a fatal overdose. What are the possible side effects of acetaminophen and hydrocodone? Get emergency medical help if you have signs of an allergic reaction: hives; difficulty breathing; swelling of your face, lips, tongue, or throat. Opioid medicine can slow or stop your breathing, and may occur. A person caring for you should seek emergency medical attention if you have slow breathing with long pauses, blue colored lips, or if you are hard to wake up. In rare cases, acetaminophen may cause a severe skin reaction that can be fatal. This could occur even if you have taken acetaminophen in the past and had no reaction. Stop taking this medicine and call your doctor right away if you have skin redness or a rash that spreads and causes blistering and peeling. Call your doctor at once if you have: ?? noisy breathing, sighing, shallow breathing; ?? a light-headed feeling, like you might pass out; ?? liver problems--nausea, upper stomach pain, tiredness, loss of appetite, dark urine, allan-colored stools, jaundice (yellowing of the skin or eyes); or ?? low cortisol levels-- nausea, vomiting, loss of appetite, dizziness, worsening tiredness or weakness. Seek medical attention right away if you have symptoms of serotonin syndrome, such as: agitation, hallucinations, fever, sweating, shivering, fast heart rate, muscle stiffness, twitching, loss of coordination, nausea, vomiting, or diarrhea. Serious side effects may be more likely in older adults and those who are overweight, malnourished, or debilitated. Long-term use of opioid medication may affect fertility (ability to have children) in men or women. It is not known whether opioid effects on fertility are permanent. Common side effects include: ?? dizziness, drowsiness, feeling tired; ?? nausea, vomiting, stomach pain; ?? constipation; or ?? headache. This is not a complete list of side effects and others may occur. Call your doctor for medical advice about side effects. You may report side effects to FDA at 1-684-FKO-7815. What other drugs will affect acetaminophen and hydrocodone? You may have breathing problems or withdrawal symptoms if you start or stop taking certain other medicines. Tell your doctor if you also use an antibiotic, antifungal medication, heart or blood pressure medication, seizure medication, or medicine to treat HIV or hepatitis C. Opioid medication can interact with many other drugs and cause dangerous side effects or . Be sure your doctor knows if you also use: ?? cold or allergy medicines, bronchodilator asthma/COPD medication, or a diuretic ('water pill'); ?? medicines for motion sickness, irritable bowel syndrome, or overactive bladder; ?? other narcotic medications--opioid pain medicine or prescription cough medicine; ?? a sedative like Valium--diazepam, alprazolam, lorazepam, Xanax, Klonopin, Versed, and others; ?? drugs that make you sleepy or slow your breathing--a sleeping pill, muscle relaxer, medicine to treat mood disorders or mental illness; ?? drugs that affect serotonin levels in your body--a stimulant, or medicine for depression, Parkinson's disease, migraine headaches, serious infections, or nausea and vomiting. This list is not complete. Other drugs may affect acetaminophen and hydrocodone, including prescription and bxdy-oxq-cpkeaio medicines, vitamins, and herbal products. Not all possible interactions are listed here. Where can I get more information? Your doctor or pharmacist can provide more information about acetaminophen and hydrocodone. Remember, keep this and all other medicines out of the reach of children, never share your medicines with others, and use this medication only for the indication prescribed. Every effort has been made to ensure that the information provided by [employer]. ('[employer]') is accurate, up-to-date, and complete, but no guarantee is made to that effect. Drug information contained herein may be time sensitive. [employer] information has been compiled for use by healthcare practitioners and consumers in the [place] and therefore [employer] does not warrant that uses outside of the [place] are appropriate, unless specifically indicated otherwise. [employer] drug information does not endorse drugs, diagnose patients or recommend therapy. [employer] drug information is an informational resource designed to assist licensed healthcare practitioners in caring for their patients and/or to serve consumers viewing this service as a supplement to, and not a substitute for, the expertise, skill, knowledge and judgment of healthcare practitioners. The absence of a warning for a given drug or drug combination in no way should be construed to indicate that the drug or drug combination is safe, effective or appropriate for any given patient. [employer] does not assume any responsibility for any aspect of healthcare administered with the aid of information [employer] provides. The information contained herein is not intended to cover all possible uses, directions, precautions, warnings, drug interactions, allergic reactions, or adverse effects. If you have questions about the drugs you are taking, check with your doctor, nurse or pharmacist. Copyright 3968-5462 [employer]. Version: 15.02. Revision Date: 06/17/2018. promethazine (oral) (pro METH a zeen) Phenergan What is the most important information I should know about promethazine? Promethazine should not be given to a child younger than 2 years old. Promethazine can cause severe breathing problems or in very young children. What is promethazine? Promethazine is in a group of drugs called phenothiazines (FZFF-wv-XQZZ-a-zeens). It works by changing the actions of chemicals in your brain. Promethazine also acts as an antihistamine. It blocks the effects of the naturally occurring chemical histamine in your body. Promethazine is used to treat allergy symptoms such as itching, runny nose, sneezing, itchy or watery eyes, hives, and itchy skin rashes. Promethazine also prevents motion sickness, and treats nausea and vomiting or pain after surgery. It is also used as a sedative or sleep aid. Promethazine is not for use in treating symptoms of asthma, pneumonia, or other lower respiratory tract infections. Promethazine may also be used for purposes not listed in this medication guide. What should I discuss with my healthcare provider before taking promethazine? Promethazine should not be given to a child younger than 2 years old. Promethazine can cause severe breathing problems or in very young children. Carefully follow your doctor's instructions when giving this medicine to a child of any age. You should not take this medicine if you are allergic to promethazine or to similar medicines such as chlorpromazine, fluphenazine, mesoridazine, perphenazine, prochlorperazine, thioridazine, or trifluperazine. To make sure promethazine is safe for you, tell your doctor if you have: ?? asthma, chronic obstructive pulmonary disease (COPD), sleep apnea, or other breathing disorder; ?? a sulfite allergy; ?? a history of seizures; ?? a weak immune system (bone marrow depression); ?? glaucoma; ?? enlarged prostate or problems with urination; ?? stomach ulcer or obstruction; ?? heart disease or high blood pressure; ?? liver disease; ?? adrenal gland tumor (pheochromocytoma); ?? low levels of calcium in your blood (hypocalcemia); or ?? if you have ever had a serious side effect while using promethazine or any other phenothiazine. It is not known whether promethazine will harm an unborn baby. Tell your doctor if you are or plan to become while using this medicine. It is not known whether promethazine passes into breast milk or if it could harm a nursing baby. You should not breast-feed while using this medicine. How should I take promethazine? Follow all directions on your prescription label. Your doctor may occasionally change your dose to make sure you get the best results. Do not take this medicine in larger or smaller amounts or for longer than recommended. Promethazine is often taken at bedtime or before meals. For motion sickness, promethazine is usually started within 1 hour before traveling. When used for surgery, promethazine is usually taken the night before the surgery. How often you take this medicine and the timing of your dose will depend on the condition being treated. Measure liquid medicine with the dosing syringe provided, or with a special dose-measuring spoon or medicine cup. If you do not have a dose-measuring device, ask your pharmacist for one. If a child is using this medicine, tell your doctor if the child has any changes in weight. Promethazine doses are based on weight in children, and any changes may affect your child's dose. Call your doctor if your symptoms do not improve, or if they get worse while using promethazine. This medicine can cause unusual results with certain medical tests. Tell any doctor who treats you that you are using promethazine. Store at room temperature away from moisture, heat, and light. What happens if I miss a dose? Take the missed dose as soon as you remember. Skip the missed dose if it is almost time for your next scheduled dose. Do not take extra medicine to make up the missed dose. What happens if I overdose? Seek emergency medical attention or call the Poison Help line at . Overdose symptoms may include overactive reflexes, loss of coordination, severe drowsiness or weakness, fainting, dilated pupils, weak or shallow breathing, or seizure (convulsions). What should I avoid while taking promethazine? This medicine may impair your thinking or reactions. Be careful if you drive or do anything that requires you to be alert. Avoid getting up too fast from a sitting or lying position, or you may feel dizzy. Get up slowly and steady yourself to prevent a fall. Drinking alcohol can increase certain side effects of promethazine. Avoid exposure to sunlight or tanning beds. Promethazine can make you sunburn more easily. Wear protective clothing and use sunscreen (SPF 30 or higher) when you are outdoors. What are the possible side effects of promethazine? Get emergency medical help if you have signs of an allergic reaction: hives; difficult breathing; swelling of your face, lips, tongue, or throat. Stop using promethazine and call your doctor at once if you have: ?? severe drowsiness, weak or shallow breathing; ?? a light-headed feeling, like you might pass out; ?? confusion, agitation, hallucinations, nightmares; ?? seizure (convulsions); ?? fast or slow heartbeats; ?? jaundice (yellowing of the skin or eyes); ?? uncontrolled muscle movements in your face (chewing, lip smacking, frowning, tongue movement, blinking or eye movement); ?? easy bruising or bleeding (nosebleeds, bleeding gums); ?? sudden weakness or ill feeling, fever, chills, sore throat, mouth sores, red or swollen gums, trouble swallowing; or ?? severe nervous system reaction--very stiff (rigid) muscles, high fever, sweating, confusion, fast or uneven heartbeats, tremors, feeling like you might pass out. Side effects such as confusion and severe drowsiness may be more likely in older adults. Common side effects may include: ?? drowsiness, dizziness; ?? ringing in your ears; ?? double vision; ?? feeling nervous; ?? dry mouth; or ?? tired feeling, sleep problems (insomnia). This is not a complete list of side effects and others may occur. Call your doctor for medical advice about side effects. You may report side effects to FDA at 4-443-UAZ-8681. What other drugs will affect promethazine? Using this medicine with other drugs that make you sleepy or slow your breathing can cause dangerous or life-threatening side effects. Ask your doctor before taking promethazine with a sleeping pill, narcotic pain medicine, muscle relaxer, or medicine for anxiety, depression, or seizures. Other drugs may interact with promethazine, including prescription and [id number] medicines, vitamins, and herbal products. Tell each of your health care providers about all medicines you use now and any medicine you start or stop using. Where can I get more information? Your pharmacist can provide more information about promethazine. Remember, keep this and all other medicines out of the reach of children, never share your medicines with others, and use this medication only for the indication prescribed. Every effort has been made to ensure that the information provided by [employer]. ('[employer]') is accurate, up-to-date, and complete, but no guarantee is made to that effect. Drug information contained herein may be time sensitive. [employer] information has been compiled for use by healthcare practitioners and consumers in the [place] and therefore [employer] does not warrant that uses outside of the [place] are appropriate, unless specifically indicated otherwise. [employer] drug information does not endorse drugs, diagnose patients or recommend therapy. [employer] drug information is an informational resource designed to assist licensed healthcare practitioners in caring for their patients and/or to serve consumers viewing this service as a supplement to, and not a substitute for, the expertise, skill, knowledge and judgment of healthcare practitioners. The absence of a warning for a given drug or drug combination in no way should be construed to indicate that the drug or drug combination is safe, effective or appropriate for any given patient. [employer] does not assume any responsibility for any aspect of healthcare administered with the aid of information [employer] provides. The information contained herein is not intended to cover all possible uses, directions, precautions, warnings, drug interactions, allergic reactions, or adverse effects. If you have questions about the drugs you are taking, check with your doctor, nurse or pharmacist. Copyright 9206-4225 [employer]. Version: 6.02. Revision Date: 05/27/2015. Emergency Awareness and Preventative Care STROKE is an EMERGENCY Every Minute Counts Act FAST and Check for these signs: FACE Does the face look uneven? ARM Does one arm drift down? SPEECH Does their speech sound strange? TIME Call at any sign of stroke Stroke Risk Factors Atrial Fibrillation (irregular heartbeat) Diabetes Family history of stroke Heart Disease Heavy alcohol use High Blood Pressure High Cholesterol Physical inactivity and obesity Smoking Cigarette Smoking The facts are clear, cigarette smoking will shorten your life. Smoking can cause many illnesses along the way. As a healthcare provider, we recommend that you stop smoking. Assistance with quitting is available by contacting 5-751-LYXRNOW. This is a free resource providing counseling, support, and referral. Or you may contact your personal physician. National Suicide Prevention Lifeline: The National Suicide Prevention Lifeline is a national network of local crisis centers that provides free and confidential emotional support to people in suicidal crisis or emotional distress 24 hours a day, 7 days a week. Don't Wait! Stop a Heart Attack Before it Starts What is a heart attack? A heart attack is damage or to a part of the heart from severely decreased or lack of blood flow to the heart. Over time, arteries can become narrow from the buildup of fat and cholesterol, which is called plaque. The plaque can rupture causing a blood clot to form. When the blood clot forms, the artery can become severely narrowed or completely blocked, causing a heart attack. Heart attack is the leading cause of in the [place]. 85% of muscle damage occurs within the first 2 hours. Delay in the recognition of heart attack symptoms increases the chances of . Know the early symptoms of a heart attack: Nausea Feeling of fullness in chest Jaw Pain Pain that travels down one or both arms Fatigue/being tired Anxiety Back Pain Chest pressure, squeezing, or discomfort Shortness of breath Sweating, or a cold sweat Feeling of impending doom There are unusual signs of a heart attack, too! Women, the elderly, and diabetics may present with atypical symptoms: Fainting/dizziness Weakness Confusion Risk Factors for a Heart Attack Some heart disease risk factors, such as age and family history, cannot be changed. Others, like smoking and lack of exercise, can be changed. Smoking High Cholesterol High Blood Pressure Family History Obesity Age Gender (Males are at higher risk) Lack of Exercise Diabetes Diet Stress Excessive Alcohol Intake If you or someone you know is experiencing the signs and symptoms of a heart attack, DON???T DELAY. Call immediately and seek help. If someone collapses, perform CPR! Do not attempt to drive if you are having symptoms of heart attack. Hands-Only CPR Why Hands-Only CPR? Hands-Only CPR has been shown to be as effective as conventional CPR for cardiac arrests that occur outside of a hospital. Survival depends on immediately receiving CPR from someone nearby. How do you perform Hands-Only CPR? There are two easy steps: Call 9-1-1 if you see a teen or adult collapse Push hard and fast in the center of the chest at a beat of 100 beats per minute. Save a life! 4 WAYS TO GET AHEAD OF SEPSIS SEPSIS is a MEDICAL EMERGENCY. Time matters! Infections put you and your family at risk for a life-threatening condition called sepsis. Sepsis is the body's extreme response to an infection. It is life-threatening, and without timely treatment, sepsis can rapidly lead to tissue damage, organ failure, and . Sepsis happens when an infection you already have-in your skin, lungs, urinary tract or somewhere else-triggers a chain reaction throughout your body. 1 PREVENT INFECTIONS Take good care of chronic conditions. Talk to your doctor about getting the recommended vaccines. 2 PRACTICE GOOD HYGIENE Wash your hands frequently. Keep cuts or open sores clean and covered until they are healed. 3 KNOW THE SYMPTOMS Confusion or disorientation Shortness of breath High heart rate Fever, shivering, or feeling very cold Extreme pain or discomfort Clammy or sweaty skin 4 ACT FAST Get medical care IMMEDIATELY if you suspect sepsis or if you have an infection that is not getting better or is getting worse. To learn more about sepsis and how to prevent infections, visit www.cdc.gov/sepsis. Test Results Laboratory or Other Results This Visit (last charted value for your 08/12/2019 visit) No Laboratory or Other Results This Visit Patient Name:BLANCA MUNOZ I have received this information and was given the opportunity to ask questions. Patient/Pipe Line Maintenance Supervisor Name: Patient/Pipe Line Maintenance Supervisor Signature: Relationship to Patient: Clinician/Hospital Pipe Line Maintenance Supervisor Signature: Date: Electronically signed by Interface, [facility] Conversion Dietary Tech Cerner at 11/28/2022 8:50 AM CDT documented in this encounter Plan of Treatment Not on file documented as of this encounter Visit Diagnoses Not on filedocumented in this encounter Care Teams Graphic Specialist Relationship Specialty Start Date End Date Terry Huynh MD [address] [place], [place] [address], [place] [id number] PCP - General Family Medicine 07/10/22 documented as of this encounter
--- OUTSIDE RECORDS SUMMARY | 2025-02-25 14:15 | XMS_ITS | Encounter Summary ---
Author Organization [employer] ([place], [place], [place], [place]) Address [address] [place] [address] Care Team Providers Care Engine Installer Name Role Phone Terry Huynh MD Primary Care Provider [phone] Encounter Details Date Type Department Care Team (Late st Contact Info) Description 08/12/2019 Transcribed Document [facility] Family Medicine [address] [place] [address] Yogi Muñoz MD [address] [place] [address] Social History Tobacco Use Types Packs/Day Years Used Date Smoking Tobacco: Never Assessed Comments Unknown Sex and Gender Information Value Date Recorded Sex Assigned at Not on file Legal Sex Female 6:49 PM CDT Gender Identity Not on file Sexual Orientation Not on file documented as of this encounter Miscellaneous Notes * Cerner Conversion Note - Historical ProviderMD - 08/12/2019 9:02 AM SALES RESEARCH ANALYST DATE OF PROCEDURE: 08/12/2019 SURGEON: Gianluca Ashford MD PREOPERATIVE DIAGNOSIS: Biliary dyskinesia. POSTOPERATIVE DIAGNOSIS: Biliary dyskinesia. PROCEDURE PERFORMED: Laparoscopic cholecystectomy. HI RANGER OPERATOR: Melissa Iglesias. ANESTHESIA: General endotracheal. FINDINGS: The patient's gallbladder appeared grossly normal. PROCEDURE IN DETAIL: The patient was brought to the operating room where general endotracheal anesthesia was induced. She was sterilely prepped and draped. Preoperative antibiotics were in place. Sequential compression boots were used for DVT prophylaxis. Time-out was performed per protocol. 0.5% Marcaine with epinephrine was placed at each trocar site for postoperative analgesia. A small skin incision was made at the umbilicus, and a Veress needle placed and CO2 pneumoperitoneum obtained. The Veress needle was removed, a 5 mm Optiview was then used to enter the peritoneal cavity under direct vision with the laparoscope. Three additional ports were placed in standard fashion under direct vision with the laparoscope. The patient was then rotated towards the left and placed in reverse Trendelenburg position. The gallbladder was grasped and elevated towards right upper quadrant. The cystic duct was carefully dissected free. The anatomy was standard and well visualized. The cystic duct was then doubly clipped proximally and distally and divided sharply with scissors. Likewise, the cystic artery was doubly clipped and divided with scissors. The gallbladder was then removed from the gallbladder bed utilizing hook cautery. It was placed within a specimen retrieval bag and delivered through the right subxiphoid fascial defect and sent to Pathology for formal evaluation. We then proceeded to irrigate the right upper quadrant with sterile saline. Meticulous hemostasis was assured. The trocars were all removed under direct vision. CO2 was released from the peritoneal cavity. All skin incisions were closed with 4-0 Monocryl in subcuticular fashion followed by Dermabond. The patient tolerated the procedure well. There were no immediate complications. Sponge and needle counts were correct. She was taken to recovery in stable condition. /[id number] Gianluca Ashford MD [facility] / Connor / MODL /[id number] Electronically signed by Danielle Freeman [facility] Conversion Extension Educator Cerner at 11/28/2022 8:51 AM CDT documented in this encounter Plan of Treatment Not on file documented as of this encounter Visit Diagnoses Not on filedocumented in this encounter Care Teams Engine Installer Relationship Specialty Start Date End Date Terry Huynh MD [address] [place] [address] [place] [address] PCP - General Family Medicine 07/10/22 documented as of this encounter
--- OUTSIDE RECORDS SUMMARY | 2025-02-25 14:15 | XMS_ITS | Clinical Summary ---
Author Organization [facility] Address [address] [place] [address] Care Team Providers Care Trim Line Worker Name Role Phone Teodoro Huynh MD Primary Care Provider Allergies Active Allergy Reactions Criticality Noted Date Comments Amoxicillin-Pot Clavulanate Other - please document in the comment field Low 11/15/2018 Cephalexin Rash Low 02/18/2022 Metronidazole Other - please document in the comment field,Vomiting Low 01/11/2023 Ondansetron Other - please document in the comment field Low 03/05/2022 Not allergy Sulfa Drugs Other - please document in the comment field,Hives,Shortnes s of breath High 04/05/2016 Urticaria and SOB Medications Qulipta 60 MG tablet Take 60 mg by mouth 1 (one) time each day. 3 Active escitalopram (Lexapro) 20 MG tablet Take 1 tablet (20 mg) by mouth 1 (one) time each day. 4 Active levothyroxine (Synthroid, Levoxyl) 50 MCG tablet Take 1 tablet by mouth daily. Please complete labs for further refills. 4 Active Omeprazole Magnesium (PriLOSEC) 2.5 MG pack Active promethazine (Phenergan) 25 MG tablet Take 1 tablet (25 mg) by mouth. 3 Active traZODone (Desyrel) 100 MG tablet Take 1 tablet (100 mg) by mouth 1 (one) time each day. 3 Active rizatriptan (Maxalt) 10 MG tablet Take 0.5 tablets (5 mg) by mouth 1 (one) time if needed. 4 Active tretinoin (Retin-A) 0.025 % cream Apply topically every night. Active metaxalone (Skelaxin) 800 MG tablet 1/2-1 PO Q 8 hours PRN muscle pain 5 Active cyanocobalamin (Vitamin B-12) 1000 MCG/ML injection Inject 1 mL (1,000 mcg) under the skin every 30 (thirty) days. Inject as directed 1 mL 11 5 10/29/19 26 Active Syringe/Needle, Disp, 25G X 5/8 1 ML misc 1 Needle every 30 (thirty) days. 50 each 5 10/29/19 26 Active Risankizumab-rz aa (Skyrizi) 360 MG/2.4ML solution cartridge Inject 360 mg under the skin Every 8 Weeks. 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 Encounters Date Type Department Care Team Description 02/17/2025 Telephone [facility] Medicine Specialties [address] [place] [address] Julieta Aparicio 12/15/2024 Telephone [facility] [address] [place] [phone] Paulo Bailon, PharmD 12/03/2024 Orders Only [facility] Medicine Specialties [address] [place] [address] Flaco Crawford, PharmD from Last 3 Months Immunizations Immunization Administration Dates Next Due Influenza, injectable, MDCK, preservative free, quadrivalent 04/13/2020,06/13/2019 Influenza, injectable, quadrivalent, preservativ e free 08/17/2023,04/22/2021 Influenza, seasonal, injectable, preservative fr ee 07/28/2024 PPD Skin Test (TB Skin Test) 11/26/2014 Zoster, Recombinant 04/09/2024 Family History Medical History Relation Name Comments Celiac disease Mother Hypothyroidism Mother Relation Name Status Comments Mother Social History Tobacco Use Types Packs/Day Years [...] Orientation Straight 10/09/2023 12 :07 PM EST Last Filed Vital Signs Vital Sign Reading Time Taken Comments Blood Pressure 129/84 10/28/2024 11:42 AM EDT Pulse 110 10/28/2024 11:42 AM EDT Temperature 36.8 C (98.2 F) 10/28/2024 11:42 AM EDT Respiratory Rate 16 06/06/2024 9:05 AM EDT Oxygen Saturation 99% 10/28/2024 11:42 AM EDT Inhaled Oxygen Concentration - - Weight 71.7 kg (158 lb 1.1 oz) 10/28/2024 11:42 AM EDT Height 162.6 cm (5' 4 ) 10/28/2024 11:42 AM EDT Body Mass Index 27.13 10/28/2024 11:42 AM EDT Plan of Treatment Health Maintenance Due Date Last Done Comments [facility]-HIV Screening 1989 [facility]-Hepatitis C Screening 1989 [facility]-/Child/Adol SDOH Screenings 1989 [facility]-Varicella Vaccines (1 of 2 - 13+ 2-dose series) 2002 HPV Vaccines (1 - 3-dose series) 2004 [facility]- SDOH Screenings 2007 [facility]-Adult SDOH Screenings 2007 [facility]-DTaP,Tdap,and Td Vaccines (1 - Tdap) 2008 [facility]-Hepatitis B Vaccines (1 of 3 - 19+ 3-dose series) 2008 [facility]-Pap Smear 2010 [facility]-Cervical Cancer Screening 2019 [facility]-HPV/Cotest 2019 [id number]-45 Vaccine (5 - season) 2024 08/17/2023, 04/22/2021, 10/02/2020, Additional history exists [facility]-Influenza Vaccine (#1) 04/13/202507/28, 08/17/2023, 04/22/2021, Additional history exists [facility]-Depression Screening 10/28/2025 10/28/2024, 10/11 [facility]-Zoster Vaccines (2 of 2) 2039 04/09/2024 [facility]-Obesity Intervention Completed 025, 07/29/2024, 01/22/2024, Additional history exists [facility]-HIB Vaccines Aged Out No longer e ligible based on patient's age to complete this topic [facility]-Hepatitis A Vaccines Aged Out No longer eligible based on patient's age to complete this topic [facility]-IPV Vaccines Aged Out No longer e ligible based on patient's age to complete this topic [facility]-Pneumococcal Vaccine: Pediatrics (0 to 5 Years) and At-Risk Patients (6 to 49 Years) Aged Out No longer eligible based on patient's age to complete this topic [facility]-Rotavirus Vaccines Aged Out No lo nger eligible based on patient's age to complete this topic Insurance [facility] Care Teams Trim Line Worker Relationship Specialty Start Date End Date Teodoro Huynh MD PCP - General 06/27/23
--- OUTSIDE RECORDS SUMMARY | 2025-02-25 14:15 | XMS_ITS | Encounter Summary ---
Author Organization Healthcare Address [address] [place] [address] Care Team Providers Care Curtain Feller Blindstitch Name Role Phone Teodoro Huynh MD Primary Care Provider [phone] Encounter Details Date Type Department Care Team (Late st Contact Info) Description 11/21/2024 Results Follow-Up [facility] Medicine Specialties [address] [place] [address] Leslie Cook L, DO [address] [place] [address] Social History Tobacco Use Types [...] Time PHQ-9 Depression Total Score: 3 10/29/19 25 11:44 AM EDT A fall risk assessment has been complete d for the patient 10/28/2024 11:44 AM EDT A Body Mass Index follow-up plan has been documented for the patient 11/04/2024 2:25 PM EDT documented as of this encounter Care Teams Curtain Feller Blindstitch Relationship Specialty Start Date End Date Teodoro Huynh MD PCP - General 06/27/23 documented as of this encounter
--- OUTSIDE RECORDS SUMMARY | 2025-02-25 14:15 | XMS_ITS | Encounter Summary ---
Author Organization [employer] ([place], [place], [place], [place]) Address [address] [place] [address] Care Team Providers Care Envelope Sealer Operator Name Role Phone Terry Huynh MD Primary Care Provider [phone] Encounter Details Date Type Department Care Team (Late st Contact Info) Description 08/12/2019 Transcribed Document [facility] [place] Family Medicine [address] [place] [address] ProviderYogi MD [address] [place] [address] Social History Tobacco Use Types Packs/Day Years Used Date Smoking Tobacco: Never Assessed Comments Unknown Sex and Gender Information Value Date Recorded Sex Assigned at Not on file Legal Sex Female 6:49 PM CDT Gender Identity Not on file Sexual Orientation Not on file documented as of this encounter Miscellaneous Notes * Cerner Conversion Note - Yogi ProviderMD - 08/12/2019 8:29 AM CLOSING AGENT [facility] Main OR PostOp Summary Primary Physician: ANGEL LAURENT MD-SUR Finalized Date/Time: 08/12/19 12:56:13 Pt. Name: BLANCA MUNOZO.B./Sex: 1990 Female Med Rec #: [id number] Physician: ANGEL LAURENT MD-SUR Financial #: [id number] Pt. Type: O Room/Bed: /4 Admit/Disch: 08/12/19 05:59:00 - Institution: [facility] Main OR PostOp Case Times Entry 1 In PACU II 08/12/19 10:19:00 Ready for PACU II 08/12/19 12:55:00 Discharge Discharge from PACU 08/12/19 12:55:00 II Last Modified By: Shirley Humphrey RN 08/12/19 12:56:10 Finalized By: Shirley Humphrey, RN Document Signatures Signed By: Shirley Humphrey RN 08/12/19 12:56 Electronically signed by Danielle [facility] Conversion Scaleman Cerner at 11/28/2022 9:05 AM CDT documented in this encounter Plan of Treatment Not on file documented as of this encounter Visit Diagnoses Not on filedocumented in this encounter Care Teams Envelope Sealer Operator Relationship Specialty Start Date End Date Terry Huynh MD [address] [place] [address] PCP - General Family Medicine 07/10/22 documented as of this encounter
--- OUTSIDE RECORDS SUMMARY | 2025-02-25 14:15 | XMS_ITS | Continuity of Care Document ---
Author Organization [facility], [facility] Address [address] [address] Care Team Providers Care Paper Baler Name Role Phone KARI ESCOBAR Primary Care Provider BAMBI HINSON Automotive Worker PHOEBE SHER Cio Assessment No assessment recorded. Plan of Treatment Reminders Order Date Submit Date Provider Last Modified By Organization Details Last Modified Time Details Appointments RHEUM RECHECK 2024 03:15P M BAMIB HINSON MD Not available Not available Not [...] Abnormal Flag Note LastModifiedBy Organization Detail LastModifiedTime 02/12/2002/02/2025 CT, cervi tanya spine , w/o contr ast No observ ation record ed. [email or web address] Not Available 2024 15:17:44 02/12/2001/17/2025 MRI, cervi tanya spine , w/o contr ast No observ ation record ed. [email or web address] Not Available 2024 15:18:15 02/18/20 25 01/17/2025 MRI, cervi tanya spine , w/o contr ast No observ ation record ed. BARCODE Not Available 2024 09:58:59 02/21/20 25 02/20/2025 XR, cervi tanya spine , 4 or 5 view [facility] [address] [facility] [place] [address] Patien t Name: FLIP Hope t : 04/20/19 88 Patirandall t Orderi [facility] er: CARLA PAULSON T EXAM DATE: 2024 EXAM: XR CERVIC AL [...] Deluca MD on 025 10:31 AM INTERFACE [facility] Radiology [address] [place], [address], 02/20/2025 10:36:30 Result Notes None recorded. 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 Procedures Surgical History Date Name Laterality Status Provider Name and Address Organization Details Recorded Time 022 section completed Sharlashruti Morris [facility] 04/10/2022 14:05:42 021 Endoscopy Nasal; Diagnostic completed Latisha Phipps [facility] 03/16/2021 10:15:27 021 Endoscopy Nasal; Diagnostic completed NOREEN SINCLAIR MD [address] [place] [address], [phone] 01/28/2021 12:00:10 021 Endoscopy Nasal; Diagnostic completed NEPTALI GUIDRY APRN [address] [place] [address], [phone] 01/04/2021 16:23:59 020 Echocardiogram completed BHARATI RAY MD [address] [place] [address], [phone] 06/03/2020 09:16:47 019 Endoscopy Nasal; Diagnostic completed NOREEN SINCLAIR MD [address] [place] [address], [phone] 05/20/2019 14:05:24 019 Endoscopy Nasal; Biospy, Polypectomy or Debridement completed NOREEN SINCLAIR MD [address] [place] [address], [phone] 04/18/2019 16:54:34 019 Ears/Nose/Throat Surgery completed Feli Flores [facility] 01/04/2021 16:07:19 Other completed [facility] 02/12[facility]2017 12:06:37 Remove tonsils and adenoids completed Neli Bailon [facility] 02/12/2017 12:06:43 Other completed Neli [facility]ailon [facility] 12:06:51 cholecystectomy completed [facility] 08/26/2019 14:18:50 Imaging Results None recorded. Procedure Notes None recorded. Medical Equipment None Reported. Allergies Allergen ID Allergen Name Allergen Category Reaction Reaction Severity Criticality Documentation Date Start Date Code Code System Note Provider Name and Address Organization Details Recorded Time 385492 Substance with sulfonami de structure and antibacte rial mechanism of action (substanc e) medicatio n rash Not available Not available 07/07/20162015 68422 8003 SNOMED React ion: RASH; Comme nt: Creat ed By: Maxi rgCre atejose Date: 016 11:02 :10 AM; Not Available [facility] 6 09:19:59 958483 Flagyl medicatio n vomiting Not available Not available 07/17/2022 6 RxNorm [facility] 2 16:01:33 [id number] Keflex medicatio n rash mild low 10/31/2022 7 RxNorm Manisha [facility] 3 14:49:23 Medications Name Sig Start Date [...] n Syringe 1 mL 25 gauge x 12/18 USE ONE NEEDLE EVERY 30 DAYS active [...] completed Not Available Not Available Not Available Acrly (28) 3 mg-0.02 mg tablet 08/26 completed [...] completed Not Available Not Available Not Available [facility]te ODT 75 mg disintegr ating tablet 10/31 [...] t Available Vitals Date Recorded Body height Body mass index (BMI) Body weight Respiratory rate Heart rate Oxygen saturation Oxygen saturation in Arterial blood by Pulse oximetry Systolic And Diastolic Provider Name and Address Organization Details Last Updated DateTime 5 162.56 cm 27.8 kg/m2 95623.9 6 g 16 /min 115 /min 98 % 98 % 110/82 mm[Hg] Tamar Fatima [facility] 5 14:38:19 Social History Question Answer Notes LastModified by [employer] Details LastModified Time Tobacco Smoking Status [facility]/12/2017 12:06:27 How Much Tobacco Do You Chew? None braenn Information not available 03/04/2020 Sunscreen Use? Yes [email or web address] Informatio n not available 05/13/2024 Tanning Bed Use No [email or web address] Informati on not available 05/13/2024 Are You Or Trying To Become ? No [email or web address] Information not available 05/13/2024 Are You On Control? Yes [email or web address] Information not available 05/13/2024 Are You ? No Information not available 05/13/2024 What Was The Date Of Your Most Recent Tobacco Screening? 09/25/2024 [email or web address] Information not available 09/25/2024 How Much Tobacco Do You Smoke? No Information not available 10/21/2019 How Many Years Have You Smoked Tobacco? 0 Information not available 10/21/2019 Have You Recently Traveled Abroad? No [email or web address] Information not available 10/31/2022 Sex: Unknown Functional Status Question Answer Note LastModified by Organizat ion Details LastModified Time Do you or have you ever used any other forms of tobacco or nicotine? No [email or web address] Information not available 05/13/2024 What is your level of alcohol consumption? None [email or web address] Information not available 02/12/2017 Do you or [...] Maternal Aunt Family history of breast cancer [email or web address] Not available 02/12 12:05:53 Maternal Aunt Disorder of thyroid gland [email or web address] Not available 02/12 12:06:15 Mother Disorder of thyroid gland [email or web address] Not available 02/12 12:06:15 Mother Arthritis [email or web address] Not availa ble 02/12/2017 12:06:22 Maternal Grandmother Disorder of thyroid gland [email or web address] Not available 02/12 12:06:15 Medical History Condition Response Emphysema N Migraines Y COPD N Depression Y Anesthesia Complications N Anxiety Disorder Y Diabetes N Bleeding Disorder N Arthritis Y Acid Reflux (GERD) N Cancer N Asthma N High Cholesterol N Heart Disease N Rheumatoid Arthritis N Hypertension N Gynecological HistoryNo gynecological history recorded. Obstetrics History GPAL:G 0 P 0 0 0 0 Immunizations Vaccine Type Date Status Note Provider Nam e and Address Organization Details Recorded Time Influenza, split virus, quadrivalent, preservative 0 completed [facility] 10/21/2019 16:10:23 COVID-19, mRNA, LNP-S, PF, 100 mcg/0.5mL dose or 50 mcg/0.25mL dose 1 completed [facility] 01/28/2021 11:18:50 COVID-19, mRNA, LNP-S, PF, 100 mcg/0.5mL dose or 50 mcg/0.25mL dose 1 completed [facility] 01/28/2021 11:18:54 Past Encounters Encounter ID Performer Location Encounter Start Date Encounter Closed Date Diagnosis/Indication Diagnosis SNOMED-CT Code Diagnosis ICD10 Code Diagnosis Note [id number] NEPTALI ABBOTT MD [address] [address] [facility] [address] [place] [address] 01/28/2025 14:30:22 01/29/2025 09:50:03 Crohn's disease of small intestine 82554430 K50.00 humira helpedrinv oq did notskyrizi not [...] to something that would cover the psoriasis betterrtc 3 mos Psoriatic arthritis 1563 15808 L40.50 Health Concerns Section Related Observation LastModified by Organization Detai ls LastModified Time None Recorded Concern Status LastModified by Organization Details LastModified Time None Recorded Payers Encounter Date Sequence Insurance Name Policy Number Policy Gregg Covered Member ID Gregg Member ID Guarantor Name 01/28/2025 1 [facility] [id number] Blanca Colindres [id number] Blanca Colindres Notes Date Note Type Note Provider Name and Address Organization Details Recorded Time 01/28/2025 text/html - The patient is a [...] better accommodates biologic therapies. NEPTALI ABBOTT MD [address] [place], [address], [facility] - [facility] 02/03/2025 16:12:34 OBGyn Episode No OBEpisode recorded.
--- OUTSIDE RECORDS SUMMARY | 2025-02-25 14:15 | XMS_ITS | Encounter Summary ---
Author Organization [employer] ([place], [place], [place], [place]) Address [address] [place] [address] Care Team Providers Care Director Of Development And Marketing Name Role Phone Terry Huynh MD Primary Care Provider [phone] Encounter Details Date Type Department Care Team (Late st Contact Info) Description 08/12/2019 Transcribed Document [facility] Family Medicine [address] [place] [address] ProviderYogi MD [address] [place] [address] Social History Tobacco Use Types Packs/Day Years Used Date Smoking Tobacco: Never Assessed Comments Unknown Sex and Gender Information Value Date Recorded Sex Assigned at Not on file Legal Sex Female 6:49 PM CDT Gender Identity Not on file Sexual Orientation Not on file documented as of this encounter Miscellaneous Notes * Cerner Conversion Note - Yogi ProviderMD - 08/12/2019 8:29 AM OPTOELECTRONICS ENGINEER [facility] Main OR Preop Summary Primary Physician: ANGEL LAURENT MD-SUR Finalized Date/Time: 08/12/19 12:26:17 Pt. Name: BLANCA MUNOZ /Sex: 1990 Female Med Rec #: [id number] Physician: ANGEL LAURENT MD-SUR Financial #: [id number] Pt. Type: O Room/Bed: /4 Admit/Disch: 08/12/19 05:59:00 - Institution: [facility] PreOp Case Times Entry 1 In Preop 08/12/19 06:09:00 Ready for Holding n/a Room Patient Ready for 08/12/19 07:06:00 Surgery Patient Out of Preop 08/12/19 08:06:00 Patient Out of n/a Holding Room Last Modified By: Laura Richards, Nurse Loft Worker Pile Driving 08/12/19 12:26:15 [facility] PreOp Case Times Audit 08/12/19 12:26:15 Partition Assembly Machine Operator: [id number] Modifier: [id number] <+> 1 Patient Out of Preop Finalized By: Laura Richards, Nurse Remelt Sugar Boiler Signatures Signed By: Laura Richards Nurse 08/12/19 12:26 Electronically signed by Danielle [facility] Conversion Sql Analyst Cerner at 11/28/2022 9:11 AM CDT documented in this encounter Plan of Treatment Not on file documented as of this encounter Visit Diagnoses Not on filedocumented in this encounter Care Teams Director Of Development And Marketing Relationship Specialty Start Date End Date Terry Huynh MD [address] [place] [address] PCP - General Family Medicine 07/10/22 documented as of this encounter
--- OUTSIDE RECORDS SUMMARY | 2025-02-25 14:15 | XMS_ITS | Encounter Summary ---
Author Organization [employer] ([place], [place], [place], [place]) Address [address] [place] [address] Care Team Providers Care Automotive Alignment Specialist Name Role Phone Terry Huynh MD Primary Care Provider [phone] Encounter Details Date Type Department Care Team (Late st Contact Info) Description 08/12/2019 Transcribed Document [facility] [place] [address] [place] [address] ProviderYogi MD [address] [place] [address] Social History Tobacco Use Types Packs/Day Years Used Date Smoking Tobacco: Never Assessed Comments Unknown Sex and Gender Information Value Date Recorded Sex Assigned at Not on file Legal Sex Female 6:49 PM CDT Gender Identity Not on file Sexual Orientation Not on file documented as of this encounter Miscellaneous Notes * Cerner Conversion Note - Yogi ProviderMD - 08/12/2019 8:29 AM MGMT CONSULTANT [facility] Main OR PACU Summary Primary Physician: ANGEL LAURENT MD-SUR Finalized Date/Time: 08/12/19 10:19:25 Pt. Name: BLANCA MUNOZ/Sex: 1990 Female Med Rec #: [id number] Physician: ANGEL LAURENT MD-SUR Financial #: [id number] Pt. Type: O Room/Bed: /4 Admit/Disch: 08/12/19 05:59:00 - Institution: [facility] Main OR PACU I Case Times Entry 1 In PACU I 08/12/19 09:05:00 Ready for PACU 08/12/19 10:05:00 Discharge Discharge from PACU 08/12/19 10:14:00 I Last Modified By: SHAINA FERNANDO RN 08/12/19 10:19:01 [facility] Main OR PACU I Case Times Audit 08/12/19 10:19:01 Power Equipment Mechanics Instructor: GABE Modifier: [email or web address] <+> 1 Ready for PACU Discharge <+> 1 Discharge from PACU I [facility] Main OR PACU Acuity Entry 1 Start Time 08/12/19 10:05:00 Stop Time 08/12/19 10:14:00 Acuity Level [facility] PACU Acuity I Last Modified By: SHAINA FERNANDO RN 08/12/19 10:19:23 Finalized By: SHAINA FERNANDO RN Document Signatures Signed By: SHAINA FERNANDO RN 08/12/19 10:19 Electronically signed by [facility] Conversion Anesthesiologist Physician Cerner at 11/28/2022 8:49 AM CDT documented in this encounter Plan of Treatment Not on file documented as of this encounter Visit Diagnoses Not on filedocumented in this encounter Care Teams Automotive Alignment Specialist Relationship Specialty Start Date End Date Terry Huynh MD [address] [place] [address] PCP - General Family Medicine 07/10/22 documented as of this encounter
--- OUTSIDE RECORDS SUMMARY | 2025-02-25 14:15 | XMS_ITS | Encounter Summary ---
Author Organization [facility] Address [address] [place] [address] Care Team Providers Care Clearing Supervisor Name Role Phone Teodoro Huynh MD Primary Care Provider [phone] Encounter Details Date Type Department Care Team (Late st Contact Info) Description 02/17/2025 Telephone [facility] [address] [place] [address] [place] [address] Social History Tobacco Use Types Packs/Day Years [...] PM EST documented as of this encounter Miscellaneous Notes * Telephone Encounter - Sally Stringer RN - 02/17/2025 1:38 PM EDT Form is in provider's folder for signature. Provider out of office until 02/24/25. * Telephone Encounter - Julieta Aparicio - 02/17/2025 8:56 AM EDT Plan of treatment paperwork found in faxes and uploaded into media tab for signature from physician documented in this encounter Plan of Treatment [...] documented as of this encounter Care Teams Clearing Supervisor Relationship Specialty Start Date End Date Teodoro Huynh MD PCP - General 06/27/23 documented as of this encounter
--- OUTSIDE RECORDS SUMMARY | 2025-02-25 14:15 | XMS_ITS | Encounter Summary ---
Author Organization Healthcare Address [address] [place] [address] Care Team Providers Care Nurse Sane Name Role Phone Teodoro Huynh MD Primary Care Provider Encounter Details Date Type Department Care Team (Late st Contact Info) Description 11/12/2024 Lab Requisition [facility] [address] [place] [address] Leslie Cook L, DO [address] [place] [address] Crohn's disease of large intestine without complications [...] Diagnosis Comments CBC WITH AUTO DIFFERENTIAL Routine 11/12/2024 10:00 AM EDT Crohn's disease of large intestine without complications (CMS/HCC) C-REACTIVE PROTEIN, PLASMA Routine 11/12/2024 10:00 AM EDT Crohn's disease of large intestine without complications (CMS/HCC) COMPREHENSIVE METABOLIC PANEL, PLASMA Routine 11/12/2024 10:00 AM EDT Crohn's disease of large intestine without complications (CMS/HCC) documented in this encounter Results * CBC and Differential (11/12/2024 10:00 AM EDT) Pathologist [facility] WBC Count 7.83 3.70 - 10.30 10*3/uL LAB HEMATOLOGY METHOD 11/12/2024 1:45 PM EDT [facility] RBC Count 4.78 3.90 - 5.20 10*6/uL LAB HEMATOLOGY METHOD 11/12/2024 1:45 PM EDT [facility] HGB 14.5 11.2 - 15.7 g/dL LAB HEMATOLOGY METHOD 11/12/2024 1:45 PM EDT [facility] HCT 44.0 34.0 - 45.0 % LAB HEMATOLOGY METHOD 11/12/2024 1:45 PM EDT [facility] Platelet Count 203 155 - 369 10*3/uL LAB HEMATOLOGY METHOD 11/12/2024 1:45 PM EDT [facility] MCV 92 79 - 98 fL LAB HEMATOLOGY METHOD 11/12/2024 1:45 PM EDT [facility] MCH 30.3 26.0 - 32.0 pg LAB HEMATOLOGY METHOD 11/12/2024 1:45 PM EDT [facility] MCHC 33.0 30.7 - 35.5 g/dL LAB HEMATOLOGY METHOD 11/12/2024 1:45 PM EDT [facility] RDW 11.9 11.5 - 14.5 % LAB HEMATOLOGY METHOD 11/12/2024 1:45 PM EDT [facility] MPV 11.3 8.8 - 12.5 fL LAB HEMATOLOGY METHOD 11/12/2024 1:45 PM EDT [facility] nRBC 0.0 <=0.0 per 100 WBCs LAB HEMATOLOGY METHOD 11/12/2024 1:45 PM EDT [facility] Differential Type Automated LAB HEMATOLOGY METHOD 11/12/2024 1:45 PM EDT [facility] Neutrophils % 68 % LAB HEMATOLOGY METHOD 11/12/2024 1:45 PM EDT [facility] Lymphocytes % 26 % LAB HEMATOLOGY METHOD 11/12/2024 1:45 PM EDT [facility] Monocytes % 5 % LAB HEMATOLOGY METHOD 11/12/2024 1:45 PM EDT [facility] Eosinophils % 0 % LAB HEMATOLOGY METHOD 11/12/2024 1:45 PM EDT [facility] Basophils % 0 % LAB HEMATOLOGY METHOD 11/12/2024 1:45 PM EDT [facility] Immature Granulocytes % 1 % LAB HEMATOLOGY METHOD 11/12/2024 1:45 PM EDT [facility] Neutrophils Absolute 5.36 1.60 - 6.10 10*3/uL LAB HEMATOLOGY METHOD 11/12/2024 1:45 PM EDT [facility] Lymphocytes Absolute 2.00 1.20 - 3.90 10*3/uL LAB HEMATOLOGY METHOD 11/12/2024 1:45 PM EDT [facility] Monocytes Absolute 0.37 0.30 - 0.90 10*3/uL LAB HEMATOLOGY METHOD 11/12/2024 1:45 PM EDT [facility] Eosinophils Absolute 0.03 0.00 - 0.50 10*3/uL LAB HEMATOLOGY METHOD 11/12/2024 1:45 PM EDT [facility] Basophils Absolute 0.03 0.00 - 0.10 10*3/uL LAB HEMATOLOGY METHOD 11/12/2024 1:45 PM EDT [facility] Immature Granulocytes Absolute 0.04 0.00 - 0.06 10*3/uL LAB HEMATOLOGY METHOD 11/12/2024 1:45 PM EDT [facility] Blood Venous blood specimen / Unknown 11/12/2024 10:00 AM EDT 11/12/2024 1:14 PM EDT [facility] - 11/12/2024 1:45 PM EDT Therapeutic decision making should be based on absolute values, rather than percentages. us Leslie Cook DO LAB BLOOD ORDERABLES Final R esult [facility] [address] [place] [address] * C-reactive protein (11/12/2024 10:00 AM EDT) CRP, Plasma <3.0 <=8.0 mg/L 11/12/2024 1:48 PM EDT [facility] Blood Venous blood specimen / Unknown 11/12/2024 10:00 AM EDT 11/12/2024 1:14 PM EDT Narrative [facility] - 11/12/2024 1:48 PM EDT This CRP test is appropriate for assessment of infection, systemic inflammation and/or tissue injury. To assess cardiovascular disease risk order high sensitivity CRP (CRPH). Leslie Cook DO LAB BLOOD ORDERABLES Final R esult Performing Organization Address [facility] Co de Phone Number [facility] [address] [place] [address] * (ABNORMAL) Comprehensive metabolic panel (11/12/2024 10:00 AM EDT) Pathologist [facility] Glucose, Plasma 128(H) 74 - 99 mg/dL 11/12/2024 1:48 PM EDT [facility] BUN, Plasma 16 7 - 21 mg/dL 11/12/2024 1:48 PM EDT [facility] Creatinine, Plasma 0.90 0.60 - 1.10 mg/dL 11/12/2024 1:48 PM EDT [facility] BUN/Creatinine Ratio 18 11/12/2024 1:48 PM EDT [facility] Sodium, Plasma 138 136 - 145 mmol/L 11/12/2024 1:48 PM EDT [facility] Potassium, Plasma 3.3(L) 3.6 - 4.9 mmol/L 11/12/2024 1:48 PM EDT [facility] Chloride, Plasma 101 97 - 107 mmol/L 11/12/2024 1:48 PM EDT [facility] CO2, Plasma 24 22 - 29 mmol/L 11/12/2024 1:48 PM EDT [facility] Anion Gap 13 6 - 16 mmol/L 11/12/2024 1:48 PM EDT [facility] Total Calcium, Plasma 9.1 8.9 - 10.2 mg/dL 11/12/2024 1:48 PM EDT [facility] Total Protein 7.3 6.3 - 7.9 g/dL 11/12/2024 1:48 PM EDT [facility] Albumin, Plasma 4.1 3.5 - 5.2 g/dL 11/12/2024 1:48 PM EDT [facility] AST, Plasma 26 10 - 35 U/L 11/12/2024 1:48 PM EDT [facility] ALT, Plasma 7(L) 10 - 35 U/L 11/12/2024 1:48 PM EDT [facility] Alkaline Phosphatase, Plasma 75 35 - 104 U/L 11/12/2024 1:48 PM EDT [facility] Total Bilirubin, Plasma <0.2(L) 0.2 - 1.1 mg/dL 11/12/2024 1:48 PM EDT [facility] eGFRcr 85.7 mL/min/1.7 3m*2 11/12/2024 1:48 PM EDT [facility] Comment:Reported eGFRcr in m L/min/1.73m2 is based the CKD-EPI 2020 equation that does not use a race coefficient. Blood Venous blood specimen / Unknown 11/12/2024 10:00 AM EDT 11/12/2024 1:14 PM EDT Leslie Cook DO LAB BLOOD ORDERABLES Final R esult [facility] [address] [place] [address] documented in this encounter Visit Diagnoses Diagnosis [...] documented as of this encounter Care Teams Nurse Sane Relationship Specialty Start Date End Date Teodoro Huynh MD PCP - General 06/27/23 documented as of this encounter
--- OUTSIDE RECORDS SUMMARY | 2025-02-25 14:15 | XMS_ITS | Encounter Summary ---
Author Organization [facility] ([place], [place], [place], [place]) Address [address] [place] [address] Care Team Providers Care Business Applications Specialist Name Role Phone Terry Huynh MD Primary Care Provider [phone] Encounter Details Date Type Department Care Team (Late st Contact Info) Description 08/12/2019 Transcribed Document [facility] [address] [place] [address] Yogi Muñoz MD [address], [place] [id number] Social History Tobacco Use Types Packs/Day Years Used Date Smoking Tobacco: Never Assessed Comments Unknown Sex and Gender Information Value Date Recorded Sex Assigned at Not on file Legal Sex Female 6:49 PM CDT Gender Identity Not on file Sexual Orientation Not on file documented as of this encounter Miscellaneous Notes * [employer] Conversion Note - oYgi Muñoz MD - 08/12/2019 10:31 AM DEPARTMENT STORE MANAGER Patient Education Materials Follows: General Anesthesia, Adult, Care After This sheet [...] activities are safe for you. ??? Take [id number] and prescription medicines only as told by [...] 11/05/2001 Document Revised: 03/15/2018 Document Reviewed: 03/15/2018 [employer] Patient Education ? 2019 [employer]. Laparoscopic Cholecystectomy, Care After This sheet gives [...] and water are not available, use hand die storage worker. ? Change your dressing as told by [...] care provider approves. General instructions ??? Take [id number] and prescription medicines only as told by your health care provider. ??? To prevent or treat constipation while you are taking prescription pain medicine, your health care provider may recommend that you: ? Drink enough fluid to keep your urine clear or pale yellow. ? Take [id number] or prescription medicines. ? Eat foods that [...] 07/30/2006 Document Revised: 02/17/2017 Document Reviewed: 01/15/2017 [employer] Interactive Patient Education ? 2019 [employer] Electronically signed by Danielle, [facility] Conversion Swimming Pool Serviceperson Cerner at 11/28/2022 9:01 AM CDT documented in this encounter Plan of Treatment Not on file documented as of this encounter Visit Diagnoses Not on filedocumented in this encounter Care Teams Business Applications Specialist Relationship Specialty Start Date End Date Terry Huynh MD [address] [place] [address] PCP - General Family Medicine 07/10/22 documented as of this encounter
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
--- OUTSIDE RECORDS SUMMARY | 2025-02-25 14:15 | XMS_ITS | Encounter Summary ---
Author Organization [employer] ([place], [place], [place], [place]) Address [address] [place] [address] Care Team Providers Care Lpn Medical Assistant Name Role Phone Terry Huynh MD Primary Care Provider [phone] Encounter Details Date Type Department Care Team (Late st Contact Info) Description 08/11/2019 Transcribed Document [facility] [place] [address] [place] [address] ProviderYogi MD [address] [place] [address] Social History Tobacco Use Types Packs/Day Years Used Date Smoking Tobacco: Never Assessed Comments Unknown Sex and Gender Information Value Date Recorded Sex Assigned at Not on file Legal Sex Female 6:49 PM CDT Gender Identity Not on file Sexual Orientation Not on file documented as of this encounter Miscellaneous Notes * Cerner Conversion Note - Historical ProviderMD - 08/11/2019 1:10 PM EVAPORATOR PAT Adult Entered On: 08/11/2019 13:16 EST Performed On: 08/11/2019 13:10 EST by ARNOLD YIP RN Height and Weight, Clinical Dosing Height Source : Measured Height Entry Format : [place] Height, Feet : 0 ft(Converted to: 0 cm, 0 Inch) Height, Inches : 64 Inch(Converted to: 5 ft 4 Inch, 162.56 cm) Clinical Height : 162.56 cm Weight Source : Standing scale Weight Entry Format : [place] Clinical Dosing Weight : 67.41 kg Weight, Pounds : 148.3 lb Body Surface Area (BSA) : 1.72 m2 Body Mass Index : 25.5 kg/m2 (HI) [place] Body Weight : 54 kg Laura Richards, Nurse Hopper Filler - 08/12/2019 6:50 EST Health Histories Smoking Status : Never (less than 100 in lifetime; none in last 30 days) Smokeless Tobacco Status : Never Implant/Device Type, Levee Superintendent and Model : none ARNOLD YIP RN - 08/11/2019 13:10 EST Social History (As Of: 08/11/2019 13:16:55 EST) Tobacco: Smoking Status Never smoker. (Last Updated: 02/21/2017 19:38:42 EDT by Shirley Humphrey, ALVA) Alcohol: Alcohol Use History No. (Last Updated: 02/21/2017 19:38:53 EDT by Shirley Humphrey, ALVA) Substance Abuse: Drug Use Hx: No. Use in Last 12 Months: No. (Last Updated: 02/21/2017 19:38:56 EDT by Shirley Humphrey, ALVA) Infectious Disease History Fever/Chills Last 48 Hours : No Laura Richards, Nurse Hopper Filler - 08/12/2019 6:50 EST Infectious Disease History : Chicken pox/Shingles, Influenza, Mononucleosis Travel To Regions with Travel Advisories : No Travel Outside [place] Within Last 30 Days : No Contact With Traveler to Advisory Region : No Tuberculosis Symptoms : None ARNOLD YIP RN - 08/11/2019 13:10 EST Anesthesia/Transfusion History Family History of Anesthesia Reaction : No prior transfusion(s) Transfusion History : Prior anesthesia without reaction Family History of Anesthesia Reaction : None ARNOLD YIP RN - 08/11/2019 13:10 EST Functional Assessment Functional ADL Evaluation Index EBN Bathing : Independent (2) Dressing : Independent (2) Toileting : Independent (2) Transferring Bed or Chair : Independent (2) Continence : Independent (2) Feeding : Independent (2) ARNOLD YIP RN - 08/11/2019 13:10 EST ADL Index Score : 12 ARNOLD YIP RN - 08/11/2019 13:10 EST Advance Directive Patient has Advance Directive *Q : No, patient refuses Advance Directive information ARNOLD YIP RN - 08/11/2019 13:10 EST [place] Suicide Severity Rating Scale (C-SSRS) CSSRS Past Month Wish to be : No CSSRS Past Month Suicidal Thoughts : No CSSRS Lifetime Suicide Behavior : No Suicide Severity Rating Score : 0 Suicide Severity Rating : No Additional Care Required at this time ARNOLD YIP RN - 08/11/2019 13:10 EST Psychosocial History Do You Have a History of the Following? : Anxiety, Depression Currently in Unsafe Situation : No ARNOLD YIP RN - 08/11/2019 13:10 EST Education Topics, Periop Preadmission Perioperative Education Grid Arrival Time/Place : Verbalizes understanding NPO Status/Directions : Verbalizes understanding Responsible Adult : Verbalizes understanding Take/Hold Medications Pre-Procedure : Verbalizes understanding ARNOLD YIP RN - 08/11/2019 13:22 EST General Info Want Family/Rep/Phys Notified of Admit : No Emergency Contact #1 : Gerson Jens Emergency Contact #1 cell Emergency Contact #1 Relationship : Emergency Contact #2 : Ela Esparza Emergency Contact #2 Emergency Contact #2 Relationship : mother Chief Complaint : gallbladder disease ARNOLD YIP RN - 08/11/2019 13:22 EST Preferred Name : Blanca Support Person/Patient Bull Float Finisher : Yes Support Person/Pt Rep Name : Fredy Colindres- Denice Esparza- mother ARNOLD YIP RN - 08/11/2019 13:10 EST Support Person/Pt Rep Contact Information : [phone] ARNOLD YIP RN - 08/11/2019 13:22 EST Information Obtained From : Patient Primary Language : [place] Citizen Preferred Communication Mode : Verbal Communication Barrier : None ARNOLD YIP RN - 08/11/2019 13:10 EST Jaime Scale Jaime Sensory Perception : No impairment Jaime Moisture : Rarely moist Jaime Activity : Walks frequently Jaime Mobility : No limitation Jaime Nutrition : Excellent Jaime Friction and Shear : No apparent problem Jaime Score : 23 ARNOLD YIP RN - 08/11/2019 13:10 EST Sleep Apnea Risk Assmt BMI Greater Than 35 kg/m2 : No Neck Circumference Greater Than 40 cm : No STOP-BANG Sleep Apnea Risk Level Score : 0 Laura Richards, Nurse Hopper Filler - 08/12/2019 6:50 EST Hx of Obstructive Sleep Apnea Diagnosis : No Snore Loudly : No Tired, Fatigued, or Sleepy During Day : No Observed Stopping Breathing During Sleep : No Have/Are Being Treated for Hypertension : No Age over 50 Years Old : No Gender Male : No ARNOLD YIP, RN - 08/11/2019 13:10 EST Electronically signed by [facility], [facility] Conversion Monkey Keeper Cerner at 11/28/2022 8:51 AM CDT documented in this encounter Plan of Treatment Not on file documented as of this encounter Visit Diagnoses Not on filedocumented in this encounter Care Teams Lpn Medical Assistant Relationship Specialty Start Date End Date Terry Huynh MD [address] [place] [address] PCP - General Family Medicine 07/10/22 documented as of this encounter
[2025-02-25 14:24] VITALS: BP 107/80; PULSE 145; RESP 18; O2SAT 95; BMI 26.6
--- NOTE | 2025-02-25 15:06 | XR_ITS ---
FINAL REPORT CLINICAL HISTORY: Right shoulder pain COMPARISON: None FINDINGS: Two views show no evidence of acute displaced fracture or dislocation of the visualized bony architecture. The joint spaces appear normal. IMPRESSION: Unremarkable exam. Reviewed, Interpreted and Dictated by Renny Elena MD Transcribed by Pina Obregon Authenticated and [facility]
--- NOTE | 2025-02-25 15:06 | XR_ITS ---
FINAL REPORT CLINICAL HISTORY: Left shoulder pain COMPARISON: None FINDINGS: Two views show no evidence of acute displaced fracture or dislocation of the visualized bony architecture. The joint spaces appear normal. IMPRESSION: Unremarkable exam. Reviewed, Interpreted and Dictated by Renny Elena MD Transcribed by Pina Obregon Authenticated and [facility]
--- NOTE | 2025-02-25 16:40 | A.OFFVIS_ITS ---
[facility] Disclaimer: The information contained in this section may have been updated after the patient was seen, as this information can be updated by other users. Medical History (Updated 02/25/25 @ 15:02 by Sara Aguilar APRN) Tristan's disease Hypothyroidism PCOS (polycystic ovarian syndrome) Psoriatic arthritis Crohn disease Surgical History History of intestinal surgery H/O anal fistulotomy S/P anal fissurectomy H/O sinus surgery Hx of cholecystectomy Hx of tonsillectomy Family History Other Unknown family medical history Social History Smoking Status: Unknown if ever smoked alcohol intake: never current occupational status: employed Travel in the last 8 weeks?: None PM Subjective & Objective Subjective Subjective:: Patient is a very pleasant 34-year-old female who presents today for follow-up of her cervical epidural steroid injection C6-C7 on 01/27/2025. Today she states that she did not notice any additional improvement following this injection however it really seem to aggravate and make her symptoms worse. Patient is still having more significant pain in and around her bilateral shoulders. Patient was primarily having more one-sided however now it is on both sides. Patient states that nothing seems to improve it. Patient did get the compounded cream however felt like it was very minimal. Patient does state that she does not want to have any more cervical epidurals in the future as it was very traumatizing. Patient states that she did actually even faint from it. Patient states overall it was just very painful and did not notice any improvement. She does have a lot of anxiety even today. Patient is interested in additional injections however she would like to see if we could prescribe something necessarily before the injections. Patient states the pain does interfere with her ability perform activities of daily living such as cooking and cleaning. Patient has tried multiple medications and physical therapy however just made her symptoms worse. Her Isaiah has been reviewed and is appropriate. Review of Systems: General: No recent weight changes, no fever, no sleep disturbances Respiratory: No cough, no shortness of air, no recurring pulmonary infections Cardiovascular/peripheral vascular: No chest pain, no palpitations, no edema, no shortness of breath Gastrointestinal: No new onset incontinence, normal bowel movements reported Genitourinary: No new onset incontinence Musculoskeletal: Neck pain, bilateral shoulder pain Psychiatric: [Normal mood/affect] Neurological: [Denies weakness in extremities], [denies balance issues] Pain at rest (0-10 scale): 5 Objective Objective:: Physical Exam: General: Alert and oriented x3, no acute distress, pleasant and cooperative Lungs: Respirations even and unlabored, symmetrical chest expansion Eyes: PERRL Musculoskeletal: Flexion and extension of cervical [spine] somewhat guarded secondary to pain, point tenderness along bilateral trapezius and rhomboid muscles Neurological: Speech clear, no gross sensory deficit Has patient had previous pain injection?: Yes Percent improvement in pain since last injection: Minimal Conservative treatment options previously tried: Home exercise plan Length of treatment: Longer than 12 weeks and Physical Therapy Length of treatment: Longer than 6 weeks but made worse Meds Home Medications and Allergies Home Medications ?Medication ?Instructions ?Recorded ?Confirmed ?Type atogepant 60 mg tablet (Qulipta) 60 mg PO DIRECTED MIGRAINES 12/11/24 02/25/25 History cyanocobalamin (vitamin B-12) 1,000 mcg IM MONTHLY SUP PLIMENT 12/11/24 02/25/25 History 1,000 mcg/mL injection solution cyclobenzaprine 10 mg tablet 10 mg PO HS 12/11/2402/10 History New Prescriptions to Start Prescriptions: Allergies Allergy/AdvReac Type Severity Reaction Status Date / Time Sulfa (Sulfonamide Allergy Difficulty Verified 12/11/24 09:56 Antibiotics) Breathing Assessment and Plan *Assessment and plan (1) Myofascial pain: Status: Acute Category: Medical Code(s): M79.18 - Myalgia, other site (2) Bilateral shoulder pain: Status: Acute Category: Medical Code(s): M25.511 - Pain in right shoulder; M25.512 - Pain in left shoulder (3) Cervical radiculopathy: Status: Acute Category: Medical Code(s): M54.12 - Radiculopathy, cervical region (4) Neck pain: Status: Acute Category: Medical Code(s): M54.2 - Cervicalgia Plan I did review over with the patient that I do believe she would benefit from trigger point injections. Patient did have point tenderness along her bilateral trapezius and rhomboid muscles during today's visit. Risk and benefits were discussed with the patient. I did chemical dependency counselor her that we can do this in the patient's room to help minimize anxiety coming up. Patient was also counseled that her is more than welcome to be present for this if that is helpful. I will send a one-time dose of hydroxyzine to be taken 1 hour prior to these injections. Patient will also be ordered lidocaine patches 5% and have x-rays of her bilateral shoulders. Patient was counseled if she does not end up getting significant improvement with the trigger point injections that we will look at ordering advanced imaging. Patient agrees with this plan of care. Patient has tried and failed conservative therapy including oral medication, heat and ice, topicals, physical therapy and continued at home stretching exercise for longer than 12 weeks that was physician guided. Patient will be scheduled for trigger point injections of her bilateral trapezius and rhomboid muscles. These will be done without fluoroscopic or ultrasound guidance. Patient has been instructed to contact the clinic with any concerns before the next appointment. Dr. Muñoz has reviewed this note and agrees with this plan of care. This note was dictated using voice recognition software and make contain errors or omissions. All injections are used with Lidocaine, Bupivacaine and dexamethasone. Occasionally urine drug screen is needed to verify patient's compliance with our office pain contract. This is ordered based off specific treatments related to chronic pain with the potential to abuse certain medications.
== END 2025-02-25 23:59 | disposition home or self-care (01) ==
PROVIDERS: PCP Family Medicine; Visit Provider Nurse Practitioner Family
DX: M79.18 Myalgia, other site (principal); M25.511 Pain in right shoulder; M25.512 Pain in left shoulder; M54.12 Radiculopathy, cervical region
CPT/HCPCS: 73030; 99212; G0463

== ENCOUNTER 2025-03-06 13:53 | Day surgery (SDC) | payer OTHER, SELFPAY ==
[2025-03-06 14:02] VITALS: BP 123/73; PULSE 134; RESP 20; O2SAT 98; BMI 28.3
--- NOTE | 2025-03-06 14:20 | EXP.PAIN.PRO ---
Procedure Date: 03/06/25 Time: 14:20 Anesthesiologist:: Sara Aguilar APRN Complications:: None Pre-procedure Diagnosis:: Myofascial pain, bilateral trapezius, degenerative disc disease of cervical spine Post-procedure Diagnosis:: Same Indications for Procedure:: Patient is a pleasant 34-year-old female who presents today for trigger point injections. Patient does states she is still having tenderness around her bilateral shoulders. She did try a hydroxyzine and it did seem like it helped some to calm her anxiety however she feels like it has increased currently. Patient did not have a good experience with her last cervical epidural and did end up passing out. Patient denies any other changes. Her Isaiah has been reviewed and is appropriate. Physical Exam: General: Alert and oriented x3, no acute distress, pleasant and cooperative Lungs: Respirations even and unlabored, symmetrical chest expansion Eyes: PERRL Musculoskeletal: Flexion and extension of cervical [spine] somewhat guarded secondary to pain, [antalgic gait noted] Neurological: Speech clear, no gross sensory deficit Procedure Details:: Patient did have noninvasive blood pressure cuff applied and pulse oximeter. Patient was placed in a sitting position and palpated along her bilateral trapezius muscles. Areas of point tenderness were marked and using a sterile 25-gauge needle approximately 10 mL of 0.25% bupivacaine, 1% lidocaine and 10 mg dexamethasone were incrementally injected into her bilateral trapezius muscles. Needle was removed and sterile bandages applied. Patient tolerated the procedure well with no complications and was discharged neurologically intact. Plan and Disposition:: Patient did tolerate the procedure well with no complications. We did a pause between doing her right and left shoulder in order for her to take a break and have her sip on some ice water. Patient did have increased nausea after starting the initial trigger point injections. Patient was fine with vitals all stable. She was discharged neurologically intact. We will follow-up with her in 2 weeks. Patient has been instructed to contact the clinic with any concerns before the next appointment. Dr. Muñoz has reviewed this note and agrees with this plan of care. This note was dictated using voice recognition software and make contain errors or omissions. All injections are used with Lidocaine, Bupivacaine and dexamethasone. Occasionally urine drug screen is needed to verify patient's compliance with our office pain contract. This is ordered based off specific treatments related to chronic pain with the potential to abuse certain medications.
[2025-03-06 14:24] VITALS: BP 117/78; PULSE 126; RESP 18; O2SAT 98
[2025-03-06] MEDS: LIDOCAINE 1% 5ML PF VIAL 5 ML (14:50)
[2025-03-06] MEDS: BUPIVACAINE 0.25% 10ML INJ 25 MG IJ (14:50)
[2025-03-06 14:51] VITALS: BP 130/81; PULSE 135; RESP 18; O2SAT 98
[2025-03-06] MEDS: DEXAMETHASONE 10MG/ML 1ML VIAL 10 MG (14:51)
[2025-03-06 14:52] VITALS: BP 107/68; PULSE 135; RESP 18; O2SAT 98
== END 2025-03-06 14:30 | disposition home or self-care (01) ==
PROVIDERS: PCP Family Medicine; Visit Provider Nurse Practitioner Family
DX: M50.30 Other cervical disc degeneration, unspecified cervical region (principal); M79.18 Myalgia, other site; E03.9 Hypothyroidism, unspecified; E28.2 Polycystic ovarian syndrome; L40.50 Arthropathic psoriasis, unspecified; Z88.2 Allergy status to sulfonamides; Z79.899 Other long term (current) drug therapy
CPT/HCPCS: 20552; J0665; J1100; J2003